=== PATIENT | female | born 1970 | race Caucasian/White ===

== ENCOUNTER 2018-06-12 14:45 | Outpatient (CLI) | payer OTHER, SELFPAY ==
[2018-06-12 15:27] LABS: Bilirubin Negative (Negative); Blood Negative (Negative); Clarity Clear; Glucose Negative (Negative); Ketones Negative (Negative); Leukocyte Esterase Negative (Negative); Nitrite Negative (Negative); Specific Gravity 1.025 (1.005-1.025); Urobilinogen 0.2 EU/dL (Up TO 0.2); pH 5.5 (5-8)
[2018-06-12 16:09] LABS: Bacteria Many HPF (Negative); Epithelial Cells Many HPF (Negative); RBC 0-2 (0-2); WBC 0-2 HPF (0-5)
[2018-06-12 16:10] LABS: Crystals Moderate Amorphous HPF (Negative); Mucus Negative (Negative)
[2018-06-12 16:11] LABS: C & S Indicated? No/Sq. Contamination
[2018-06-12 16:15] LABS: PROTEIN 107.1 mg/dL
[2018-06-12 16:18] LABS: Anion Gap 11.8 mmol/L (3-11); BUN 23 mg/dL (7-18); CO2 27.2 mmol/L (21.0-32.0); CREATININE 1.08 mg/dL (0.55-1.02); Chloride 101 mmol/L (98-107); Estimated GFR 54.62 (mL/min/1.73m2); Glucose 140 mg/dL (70-100); Potassium 4.2 mmol/L (3.5-5.1); Sodium 140 mmol/L (136-145)
[2018-06-12 16:23] LABS: COMMENT (LAB VIEW ONLY) 104.52 mg/dL; Prot/Crea Ur Ratio 1.02
== END 2018-06-12 15:05 ==
PROVIDERS: PCP Family Medicine; Visit Provider Family Medicine
DX: I10 Essential (primary) hypertension (principal); N18.2 Chronic kidney disease, stage 2 (mild)
CPT/HCPCS: 36415; 80048; 81003; 81015; 82565; 84156

== ENCOUNTER 2022-02-04 01:59 | Outpatient (CLI) | payer MEDICARE, SELFPAY ==
[2022-02-04] MEDS: Albuterol HFA 18 GM 200 PUFF INH IH (16:20)
[2022-02-04] MEDS: Inhaler, Assist Device 1 EACH MC (16:20)
--- NOTE | 2022-02-07 13:02 | W.PFT ---
Date of service: 02/04/22 Time of Service: 15:27 Pulmonary Function Test Result Requesting Provider Faye Martinez Indications: Asthma Interpretation Spirometry: No obstructive lung disease. No significant response to bronchodilators. Impression Normal spirometry. Clinical Correlation therefore is recommended.
== END 2022-02-04 02:00 | disposition home or self-care (01) ==
PROVIDERS: PCP Nurse Practitioner Adult Health; Visit Provider Nurse Practitioner Adult Health
DX: J45.909 Unspecified asthma, uncomplicated (principal)
CPT/HCPCS: 94060

== ENCOUNTER 2022-02-21 10:59 | Outpatient (REF) | payer MEDICARE, SELFPAY ==
[2022-02-21 15:08] LABS: ALT 52 U/L (14-59); AST 33 U/L (15-37); Albumin 3.6 g/dL (3.4-5.0); Alkaline Phosphatase 93 U/L (46-116); Anion Gap 7.8 mmol/L (3-11); BUN 17 mg/dL (7-18); Bilirubin, Total 0.4 mg/dL (0.2-1.0); CO2 30.2 mmol/L (21.0-32.0); CREATININE 1.1 mg/dL (0.55-1.02); Calcium 9.2 mg/dL (8.5-10.1); Chloride 101 mmol/L (98-107); Estimated GFR 52.79 (mL/min/1.73m2); Glucose 93 mg/dL (74-106); Potassium 4.6 mmol/L (3.5-5.1); Sodium 139 mmol/L (136-145); TSH (W/Ref FT4) 2.03 uIU/mL (0.36-3.74); Total Protein 7.2 g/dL (6.4-8.2)
[2022-02-21 23:36] LABS: Calculated LDL 140 mg/dL (<100); Cholesterol 244 mg/dL (<200); HDL Cholesterol 69 mg/dL (40-60); Triglyceride 175 mg/dL (<150)
== END 2022-02-21 11:00 | disposition home or self-care (01) ==
LOC: LBN 10:59
PROVIDERS: PCP Nurse Practitioner Adult Health; Visit Provider Nurse Practitioner Adult Health
DX: E78.00 Pure hypercholesterolemia, unspecified (principal); F32.89 Other specified depressive episodes; G47.00 Insomnia, unspecified; I10 Essential (primary) hypertension; N18.2 Chronic kidney disease, stage 2 (mild)
CPT/HCPCS: 80053; 80061; 84443

== ENCOUNTER 2022-09-14 02:26 | Outpatient (CLI) | payer MEDICARE, SELFPAY ==
--- NOTE | 2022-09-14 06:45 | DI.US_ITS ---
Exam(s) US PELVIS TRANSVAGINAL EXAM: US PELVIS TRANSVAGINAL CLINICAL HISTORY: lobulated uterus on MRI lumbar spine--?fibroid,d25.9,r93.89 TECHNIQUE: Transabdominal and transvaginal imaging was performed using standard protocol. COMPARISON: MR MRI LUMBAR WO from 08/06/2021 FINDINGS: Both transabdominal and transvaginal imaging limited by patient body habitus. KIDNEYS: Kidneys are symmetric in size. No evidence of renal calculi. No evidence of hydronephrosis. No renal mass or cyst identified. UTERUS: Anteverted. 8 x 5.3 x 5 cm Endometrium: 7 mm Myometrium: 2 anterior myometrial fibroids, measuring 3.93.1 cm in maximal dimension. Cervix: Unremarkable. OVARIES: Not visualized. CUL-DE-SAC: Free fluid: None. IMPRESSION: 1. Uterine fibroids. 2. Ovaries not visualized. DATA REPOSITORY:
== END 2022-09-14 02:46 ==
PROVIDERS: PCP Nurse Practitioner Adult Health; Visit Provider Nurse Practitioner Adult Health
DX: D25.9 Leiomyoma of uterus, unspecified (principal); R93.89 Abnormal findings on diagnostic imaging of other specified body structures
CPT/HCPCS: 76830; 76856

== ENCOUNTER 2023-04-19 12:48 | Outpatient (REF) | payer MEDICARE, SELFPAY ==
[2023-04-19 17:18] LABS: Hemoglobin A1C 5.8 % (<5.7)
[2023-04-19 17:19] LABS: Anion Gap 7.2 mmol/L (3-11); BUN 22 mg/dL (7-18); CO2 30.8 mmol/L (21.0-32.0); Calcium 9.4 mg/dL (8.5-10.1); Chloride 104 mmol/L (98-107); Estimated GFR 68.21 (mL/min/1.73m2); Glucose 102 mg/dL (74-106); Potassium 4.7 mmol/L (3.5-5.1); Sodium 142 mmol/L (136-145)
[2023-04-19 18:00] LABS: COMMENT (LAB VIEW ONLY) 47.18 mg/dL
[2023-04-19 18:05] LABS: Microalb ug/mg Crea 1469.5 ug/mg Cr
== END 2023-04-19 12:49 | disposition home or self-care (01) ==
LOC: LBN 12:48
PROVIDERS: PCP Nurse Practitioner Adult Health; Visit Provider Nurse Practitioner Adult Health
DX: R73.01 Impaired fasting glucose (principal); K21.9 Gastro-esophageal reflux disease without esophagitis; E66.01 Morbid (severe) obesity due to excess calories; E78.00 Pure hypercholesterolemia, unspecified; I10 Essential (primary) hypertension; N18.2 Chronic kidney disease, stage 2 (mild)
CPT/HCPCS: 80048; 82043; 82570; 83036

== ENCOUNTER 2023-08-21 16:34 | Outpatient (REF) | payer MEDICARE, SELFPAY ==
[2023-08-21 18:40] LABS: Anion Gap 8.3 mmol/L (3-11); BUN 25 mg/dL (7-18); CO2 26.7 mmol/L (21.0-32.0); CREATININE 1.1 mg/dL (0.55-1.02); Calcium 9.4 mg/dL (8.5-10.1); Chloride 101 mmol/L (98-107); Estimated GFR 60.84 (mL/min/1.73m2); Glucose 136 mg/dL (74-106); Potassium 4.6 mmol/L (3.5-5.1); Sodium 136 mmol/L (136-145)
== END 2023-08-21 16:35 | disposition home or self-care (01) ==
LOC: LBN 16:34
PROVIDERS: PCP Nurse Practitioner Adult Health; Visit Provider Nurse Practitioner Adult Health
DX: E66.01 Morbid (severe) obesity due to excess calories (principal); N18.2 Chronic kidney disease, stage 2 (mild); R79.89 Other specified abnormal findings of blood chemistry; Z68.44 Body mass index [BMI] 60.0-69.9, adult
CPT/HCPCS: 80048

== ENCOUNTER 2024-02-20 18:09 | Outpatient (REF) | payer MEDICARE, SELFPAY ==
--- NOTE | 2024-02-20 12:15 | PAPFT_PTH ---
PATIENT: Jamia Erickson LOC: [facility] U#:[id number] AGE/SX: 53/F ROOM: RE02/20/[address]: Faye Martinez APRN : 1970 BED: DIS: 02/20/2024 SPEC #: [id number] RECD: 02/20/24 18:11 STATUS: DOT REQ #: [id number] VALDO: 02/20/24 12:[address]: Faye Martinez DEPT: [facility] Cytology RECD BY: Claire De Jesus Tissues: 1 - CX/ENDOCX FOR PAP SMEARS Procedures: PAP THIN PREP/UVM Screening HPV DNA PROBE Comments: [id number]
== END 2024-02-20 18:10 | disposition home or self-care (01) ==
LOC: LBN 18:09
PROVIDERS: PCP Nurse Practitioner Adult Health; Visit Provider Nurse Practitioner Adult Health
DX: Z11.51 Encounter for screening for human papillomavirus (HPV) (principal); Z01.419 Encounter for gynecological examination (general) (routine) without abnormal findings
CPT/HCPCS: 88142; 87624

== ENCOUNTER 2024-05-09 19:57 | Emergency (ER) | payer MEDICARE, SELFPAY ==
[2024-05-09] VITALS (28 sets, daily range): BP systolic 119–167; BP diastolic 61–124; PULSE 82–95; RESP 2–27; TEMP 36.4; O2SAT 88–93
--- NOTE | 2024-05-09 20:15 | RT.EKG_ITS ---
APPROVED REPORT Exam: Resting ECG [place] [facility] [place] HR:86 bpm ECG Measurements Heart Rate 86 AXIS TN 126 P 10 QRSd 94 QRS 32 QT 355 T 68 QTc 426 Conclusion Sinus rhythm, rate 86 No interval abnormality or ectopy No STEMI
--- NOTE | 2024-05-09 20:30 | DI.RAD_ITS ---
Exam(s) XR CHEST 2V PA LATERAL EXAM: XR CHEST 2V PA LATERAL CLINICAL HISTORY: choking episode, syncope. TECHNIQUE: 2D digital imaging was performed. COMPARISON: No exams were available for comparison FINDINGS: 2 views: Exam limited by body habitus and somewhat lordotic portable technique. Heart size is upper normal and the mediastinum is not widened. Visualized right lung is clear. Slightly increased markings in left lower lobe noted. No pleural ef fusions. No evidence of pulmonary edema. IMPRESSION: Mild increased markings in the left lower lobe retrocardiac region. May indicate an element of infil trate.Interpretation is somewhat difficult due to body habitus and technique. No evidence of pulmonary edema. DATA REPOSITORY: RADIATION DOSE DELIVERED:
--- NOTE | 2024-05-09 20:40 | ED.GENADUL_ITS ---
Discharge Plan Discharge Details Chief Complaint: [id number] Primary Care Provider: Faye Martinez ED Provider: Denver Griffiths Home Meds and New Rx's Prescriptions: No Action diphenhydramine HCl [Benadryl] 25 mg capsule 25 mg PO .QD PRN Patient Comments: allergies mupirocin 2 % ointment 1 applic topical BID-TID Qty: 15 0RF Rx Instructions: May substitute with cream if less expensive; apply thin layer until area/lesion resolved in L axilla/armpit zolpidem 5 mg tablet 5 mg PO QHS MDD 5mg PRN (Reason: sleep) Qty: 30 5RF Zepbound 5 mg/0.5 mL pen injector 5 mg subcut QWEEK Qty: 2 2RF trazodone 100 mg tablet 100 - 300 mg PO QHS PRN (Reason: sleep) Qty: 270 3RF Rx Instructions: For insomnia; take lowest effective dose cholecalciferol (vitamin D3) 25 mcg (1,000 unit) capsule 5,000 unit PO DAILY latanoprost 0.005 % drops 1 drp ophthalmic (eye) QPM Rx Instructions: 1 drop both eyes qhs-- amlodipine 5 mg tablet 5 mg PO DAILY MDD 10mg/24h Qty: 120 3RF Rx Instructions: Blood pressure; 5mg daily, may take up to 10mg daily. albuterol sulfate [Ventolin HFA] 90 mcg/actuation HFA aerosol inhaler See Rx Instructions .ROUTE .COMPLEX Qty: 18 6RF Dose Instruction: inhale 2 puffs by mouth and INTO THE LUNGS every 4 hours if needed for wheezing or SHORTNESS OF BREATH Rx Instructions: inhale 2 puffs by mouth and INTO THE LUNGS every 4 hours if needed for wheezing or SHORTNESS OF BREATH budesonide-formoterol [Symbicort] 160-4.5 mcg/actuation HFA aerosol inhaler 2 puff inhalation BID PRN (Reason: allergic/environmental asthma) Qty: 3 3RF Rx Instructions: Uses PRN with triggered flares (lower dose ineffective) ipratropium-albuterol 0.5 mg-3 mg(2.5 mg base)/3 mL solution for nebulization 3 ml inhalation QID PRN (Reason: shortness of breath or wheezing) Qty: 90 3RF losartan 100 mg tablet 100 mg PO DAILY Qty: 90 3RF montelukast 10 mg tablet 10 mg PO DAILY Qty: 90 3RF Rx Instructions: Asthma & allergies omeprazole 40 mg capsule,delayed release(DR/EC) 40 mg PO DAILY Qty: 90 3RF loratadine [Allergy Relief (loratadine)] 10 mg tablet See Rx Instructions .ROUTE .COMPLEX Qty: 90 2RF Dose Instruction: TAKE 1 TABLET BY MOUTH ONCE DAILY NEEDED FOR ALLERGIC SYMPTOMS Rx Instructions: TAKE 1 TABLET BY MOUTH ONCE DAILY NEEDED FOR ALLERGIC SYMPTOMS cyclobenzaprine 10 mg tablet See Rx Instructions .ROUTE .COMPLEX Qty: 60 0RF Dose Instruction: TAKE 1 TABLET BY MOUTH TWICE DAILY NEEDED FOR LUMBAR SPINE MUSCLE SPASM Rx Instructions: TAKE 1 TABLET BY MOUTH TWICE DAILY NEEDED FOR LUMBAR SPINE MUSCLE SPASM prednisone 10 mg tablet See Rx Instructions PO DAILY Qty: 30 0RF Rx Instructions: t4 tabs for 3 days, the t3 tabs for 3 days, then t2 tabs for 3 days, then t1 tab for 3 days orally daily; (12 day taper). HPI General Date/Time Provider Initiated Documentation: 05/09/24 20:06 . HPI Narrative: 54 year-old morbidly obese female presents to ED today by POV/ambulating with a chief complaint of choking episode on an onion ring at home, with syncope- states a piece of the onion ring did fall out of her mouth just prior to her falling down/passing out, states she was out for a split second and had her eyes open and was shaky when he got across the room to her with onset just prior to arrival. Patient is also hypoxic to 88% on RA on arrival in triage, 90% by time of ED room. Quality described as feels pain on the back of her legs, notes her L leg has been swollen over the past weeks, states she has leg weakness when attempting to walk since this syncopal episode, no radiation to chest pain, hemoptysis, stridor, vocal changes, excessive drooling, inability to swallow since the event, abdominal pain, slurred speech, confusion. Severity is described as moderate for leg weakness. Palliating factors include nothing specific attempted. Provoking factors include nothing specific. Patient not anticoagulated. Related Data Home Medications ?Medication ?Instructions ?Recorded ?Confirmed diphenhydramine HCl 25 mg capsule 25 mg PO .QD PRN 01/17/22 02/20/24 (Benadryl) cholecalciferol (vitamin D3) 25 5,000 unit PO DAILY 02/04/22 02/20/24 mcg (1,000 unit) capsule mupirocin 2 % topical ointment 1 applic topical BID-TID #15 grams 02/16/23 02/20/24 latanoprost 0.005 % eye drops 1 drp ophthalmic (eye) QPM 04/19/23 02/20/24 albuterol sulfate 90 mcg/actuation See Rx Instructions .Route 05/11/23 02/20/24 aerosol inhaler (Ventolin HFA) .COMPLEX #18 grams amlodipine 5 mg tablet 5 mg PO DAILY #120 tabs 05/11/23 02/20/24 budesonide-formoterol HFA 160 2 puff inhalation BID PRN 05/11/23 02/20/24 mcg-4.5 mcg/actuation aerosol allergic/environmental asthma #3 inhaler (Symbicort) units ipratropium 0.5 mg-albuterol 3 mg 3 ml inhalation QID PRN shortness 05/11/23 02/20/24 (2.5 mg base)/3 mL nebulization of breath or wheezing #90 mL soln losartan 100 mg tablet 100 mg PO DAILY #90 tabs 05/11/23 02/20/24 montelukast 10 mg tablet 10 mg PO DAILY #90 tabs 05/11/23 02/20/24 omeprazole 40 mg capsule,delayed 40 mg PO DAILY #90 caps 05/11/23 02/20/24 release loratadine 10 mg tablet (Allergy See Rx Instructions .Route 12/20/23 02/20/24 Relief (loratadine)) .COMPLEX #90 tabs tirzepatide (weight loss) 5 mg/0.5 5 mg (0.5 mL) subcut QWEEK #2 mL 02/20/24 02/20/24 mL subcutaneous pen injector (Zepbound) trazodone 100 mg tablet 100 - 300 mg (1 - 3 x 100 mg) PO 02/20/24 02/20/24 QHS PRN sleep #270 tabs zolpidem 5 mg tablet 5 mg PO QHS PRN sleep #30 tabs 06/18/24 06/18/24 cyclobenzaprine 10 mg tablet See Rx Instructions .Route 03/19/24 .COMPLEX #60 tabs prednisone 10 mg tablet See Rx Instructions PO DAILY #30 04/12/24 tabs Previous Rx's ?Medication ?Instructions ?Recorded mupirocin 2 % topical ointment 1 applic topical BID-TID #15 grams 02/16/23 albuterol sulfate 90 mcg/actuation See Rx Instructions .Route 05/11/23 aerosol inhaler (Ventolin HFA) .COMPLEX #18 grams amlodipine 5 mg tablet 5 mg PO DAILY #120 tabs 05/11/23 budesonide-formoterol HFA 160 2 puff inhalation BID PRN 05/11/23 mcg-4.5 mcg/actuation aerosol allergic/environmental asthma #3 inhaler (Symbicort) units ipratropium 0.5 mg-albuterol 3 mg 3 ml inhalation QID PRN shortness 05/11/23 (2.5 mg base)/3 mL nebulization of breath or wheezing #90 mL soln losartan 100 mg tablet 100 mg PO DAILY #90 tabs 05/11/23 montelukast 10 mg tablet 10 mg PO DAILY #90 tabs 05/11/23 omeprazole 40 mg capsule,delayed 40 mg PO DAILY #90 caps 05/11/23 release loratadine 10 mg tablet (Allergy See Rx Instructions .Route 12/20/23 Relief (loratadine)) .COMPLEX #90 tabs tirzepatide (weight loss) 5 mg/0.5 5 mg (0.5 mL) subcut QWEEK #2 mL 02/20/24 mL subcutaneous pen injector (Zepbound) trazodone 100 mg tablet 100 - 300 mg (1 - 3 x 100 mg) PO 02/20/24 QHS PRN sleep #270 tabs zolpidem 5 mg tablet 5 mg PO QHS PRN sleep #30 tabs 02/20/24 cyclobenzaprine 10 mg tablet See Rx Instructions .Route 03/19/24 .COMPLEX #60 tabs prednisone 10 mg tablet See Rx Instructions PO DAILY #30 04/12/24 tabs Allergies Allergy/AdvReac Type Severity Reaction Status Date / Time metoprolol Allergy Severe Anaphylaxis Verified 02/20/24 11:26 tramadol Allergy Intermediate vomiting Verified 08/21/23 15:35 Latex, Natural Rubber Allergy irritation, Verified 08/21/23 15:35 swelling sulfamethoxazole (From AdvReac Intermediate vomiting Verified 08/21/23 15:35 Bactrim) trimethoprim (From Bactrim) AdvReac Intermediate vomiting Verified 08/21/23 15:35 environmental Allergy Intermediate asthma Uncoded 08/21/23 15:35 General Stated Complaint: [id number] AMADOR: 3 Review of Systems All systems reviewed & are unremarkable except as noted in HPI and below Exam Narrative Exam Narrative: GENERAL APPEARANCE: Morbid obesty, non-toxic, awake and alert, atraumatic, no acute distress. SKIN: Warm, pink, dry, intact, without rashes/lesions/ulcerations. HEAD: Normocephalic, atraumatic, normal hair distribution for gender/age. EYES: Normal conjunctiva, no exudates on lids/lashes. ENT: Nares patent, no circumoral cyanosis, no facial swelling NECK: Supple, trachea midline, painless cervical ROM, no midline vertebral tenderness/crepitus/step-offs. LUNGS/CHEST: Lungs CTA bilaterally- difficult auscultation due to body habitus, mildly labored respirations, normal A/P diameter, symmetrical expansion, no chest wall deformity HEART (CV/PV): Regular rate and rhythm without murmur, no peripheral edema, no JVD. ABDOMEN: Soft, non-distended, no guarding, no tenderness. MSK: Normal ROM, no swelling/deformity to bilateral UEs or LEs, moving all extremities without weakness, no cyanosis, spine midline without tenderness, normal curvature, no hip tenderness bilaterally, pain to light touch posterior thighs, has midline thoracic pain without crepitus/step-offs NEURO: Mental Status AAOx4 - alert to person, place, time, events No facial droop, no forehead involvement. Motor: No focal weakness - strength 5/5 in bilateral UEs, patient states she cannot lift her leg exam unsure whether this is due to participation effort or not, she does have good pull with her big toes with dorsi flexion, has sensitivity to light touch with shouting pain response Sensory: sensation intact to light touch globally. Gait normal: patient ambulated without ataxia into ED room. PSYCH: dysthymic, uncooperative, unpleasant, tearful, appropriate speech Course Vital Signs Vital signs: Vital Signs Temperature 36.4 C 05/09/24 20:00 Pulse 90 05/09/24 20:00 Respiratory Rate 15 05/09/24 20:00 Blood Pressure 142/80 H 05/09/24 20:00 Pulse Oximetry 88 L 05/09/24 20:00 Temperature 36.4 C 05/09/24 20:00 Pulse 90 05/09/24 20:00 Respiratory Rate 15 05/09/24 20:00 Blood Pressure 142/80 H 05/09/24 20:00 Blood Pressure Position Sitting 05/09/24 20:00 Pulse Oximetry 88 L 05/09/24 20:00 Oxygen Delivery Method Room Air 05/09/24 20:00 Oxygen Flow Rate 0 05/09/24 20:00 Pain Level 5 05/09/24 20:00 Medical Decision Making This dictation utilizes [id number] dictation software and may contain unedited grammatical errors. 54 year-old morbidly obese female presents to ED today by POV/ambulating with a chief complaint of choking episode on an onion ring at home, with syncope- states a piece of the onion ring did fall out of her mouth just prior to her falling down/passing out, states she was out for a split second and had her eyes open and was shaky when he got across the room to her with onset just prior to arrival. Patient is also hypoxic to 88% on RA on arrival in triage, 90% by time of ED room. Quality described as feels pain on the back of her legs, notes her L leg has been swollen over the past weeks, states she has leg weakness when attempting to walk since this syncopal episode, no radiation to chest pain, hemoptysis, stridor, vocal changes, excessive drooling, inability to swallow since the event, abdominal pain, slurred speech, confusion. Severity is described as moderate for leg weakness. Palliating factors include nothing specific attempted. Provoking factors include nothing specific. Patients' medical history: Morbid obesity, bronchospasm, fibromyalgia, chronic back pain, asthma, CKD, GERD, hypertension, anxiety, denies any cardiac history, denies any breathing problems due to mechanical ventilation issues states she has smell allergies. Family and social history: poor diet, denies illicit drug use. Pertinent exam findings / vital signs include difficult auscultation due to body habitus, regular rate, benign abdomen, no hip tenderness from fall, no cervical spine tenderness, no signs of head trauma, mild tenderness to posterior thighs, mid thoracic vertebral tenderness without crepitus/step-offs, patient is nonpa rticipatory with motor testing of lower extremities, states she cannot move them, does intermittently give solid effort on strength with dorsiflexion. Differential / pathologies of concern include syncope, aspiration pneumonia, anxiety, DVT, mechanical fall, ACS. Diagnostic studies of: -CBC, CMP, Lactate, CK, Serial Troponins, CXR, D-Dimer, Magnesium, Lipase, ETOH Level. CT Cervical/Thoracic/Lumbar Spine wo Contrast, CTA Chest PE Study, BNP added. -CBC shows no leukocytosis, no anemia -Lactate 1.9 -CMP shows mild hyponatremia, baseline creatinine, glucose 107 -Magnesium within normal limits -Initial troponin negative, repeats pending -Lipase negative -Alcohol level 84.1 -D-dimer elevated at 1163, possibility for DVT will rule out PE at this evening's visit, may need outpatient ultrasound tomorrow -EKG shows sinus rhythm with P waves followed by narrow complex QRS with questionable normal versus mild left axis deviation, no ST changes, low voltage likely due to body habitus, normal QT QTc -CXR shows pulmonary edema Patient perseverating on her leg pain, despite being hypoxic and syncopizing, attempted to soothe stating we needed to obtain CXR due to hypoxia prior to add ressing other issues stating now her whole reason for coming was her back pain- added on CT C/T/L Spine and CTA Chest PE Study at that time for elevated D- dimer. Interventions of: -DuoNeb, patient refusing IV Tylenol and toradol despite her severe pain with light palpation ED Course/Assessment/Plan: 54-year-old patient presents with her spouse after a brief choking episode on an onion ring at home, she states that she was able to get the onion ring out of her mouth just before she passed out and fell over, initially she denied any head or neck pain stating that the backs of her legs hurt. She was found to be 88% on room air on arrival, I question whether she aspirated a small piece of onion ring, or if this is her recumbent baseline due to physical constraints of respiration. She complains of chronic left leg swelling though there is no severe skin changes, difficult to determine whether Homans is positive as she shouts angrily in pain with light touch of the feet with testing for plantar dorsiflexion strength, she does pull with dorsiflexion testing bilaterally and symmetrically. Will perform CTs of her entire spine as she does have a mechanism that could have fractured a vertebrae as well as rule out a PE due to her elevated D-dimer, she may need further testing for ultrasound outpatient and empiric treatment overnight. Her chest x-ray shows significant pulmonary congestion suggestive of CHF, will trial Lasix for relief of her mild hypoxia on room air. Will give empiric antibiotics as infectious process cannot be ruled out for aspiration pneumonia ceftriaxone and azithromycin. *Added BNP Patient signed out to oncoming provider Dr. Alma Rodriguez with CT's pending. Findings not consistent with respiratory failure, ACS. Disposition of Syncope, Mechanical Fall. Patient verbalized understanding of the plan and return to ED criteria and engaged in shared decision making. Medical Records Medical records reviewed: Yes I reviewed the patient's medical records. Imaging Data Radiologic Study: Attestation: I personally reviewed and interpreted this imaging study as follows: Imaging: X-Ray Radiologist's impression: Exam: XR Chest Exam date and time: 05/09/2024 9:44 PM Age: 54 years old Clinical indication: Pain; Radiating TECHNIQUE: Imaging protocol: Radiologic exam of the chest. Views: 2 views. COMPARISON: No relevant prior studies available. FINDINGS: Lungs: There is pulmonary venous congestion. There is diffuse interstitial edema. Underlying inflammatory or infectious process not excluded. Pleural spaces: There are no pleural effusions. No evidence of pneumothorax. Heart/Mediastinum: The heart is enlarged. There is prominence of the mediastinum. Bones/joints: The skeletal structures and soft tissues show no evidence of fracture or other acute processes. Soft tissues: The soft tissues of the extrathoracic region are unremarkable. IMPRESSION: Probable congestive heart failure. Underlying inflammatory or infectious process not excluded. Dictated and Authenticated by: Cal English MD. Lab Data Lab results reviewed: Yes I reviewed the patient's lab results. Labs: Laboratory Tests Range/Units 05/09/24 20:40 WBC (4.4-10.8) 10^3/uL 9.98 RBC (3.93-5.22) 10^6/uL 4.47 Hgb (11.2-15.7) g/dL 11.3 Hct (36.0-46.0) % 37.5 MCV (80-95) fL 84 MCH (27.0-33.0) pg 25.3 L MCHC (32.0-36.0) % 30.1 L RDW (11.7-14.6) % 17.5 H Plt Count (130-400) 10^3/uL 298 MPV (8.0-11.0) fL 9.0 Immature Gran % % 1.2 Neutrophils % % 78.6 Lymphocytes % % 12.9 Monocytes % % 5.0 Eosinophils % % 1.7 Basophils % % 0.6 Nucleated RBC % (0.0-0.3) % 0.0 Absolute Neutrophils (1.2-6.7) 10^3/uL 7.84 H Absolute Lymphocytes (1.2-3.4) 10^3/uL 1.29 Absolute Monocytes (0.1-0.8) 10^3/uL 0.50 Absolute Eosinophils (0.0-0.7) 10^3/uL 0.17 Absolute Basophils (0.0-0.2) 10^3/uL 0.06 D-Dimer (<500) ng/mlFEU 1163 H VBG Lactate (0.6-1.4) mmol/L 1.9 H Sodium (136-145) mmol/L 133 L Potassium (3.5-5.1) mmol/L 3.9 Chloride (98-107) mmol/L 96 L Carbon Dioxide (21.0-32.0) mmol/L 26.5 Anion Gap (3-11) mmol/L 10.5 BUN (7-18) mg/dL 18 Creatinine (0.55-1.02) mg/dL 1.2 H Est GFR (CKD-EPI 2020) (mL/min/1.73m2) 54.46 Glucose (74-106) mg/dL 107 H Calcium (8.5-10.1) mg/dL 9.2 Magnesium (1.8-2.4) mg/dL 1.9 Total Bilirubin (0.2-1.0) mg/dL 0.33 AST (15-37) U/L 23 ALT (14-59) U/L 28 Alkaline Phosphatase (46-116) U/L 104 Creatine Kinase (26-192) U/L 36 Troponin I High Sens (< or =60) ng/L < 50 Total Protein (6.4-8.2) g/dL 7.6 Albumin (3.4-5.0) g/dL 3.5 Lipase (16-77) U/L 60 Ethyl Alcohol (<10) mg/dL 84.1 H Quality:[facility] Health Related Social Needs: No Data to Display COUNTS INCLUDE 234 BEDS AT THE [facility] All Active Problems Hernia, ventral (Acute) [facility] GI-06/13/23 06-26-23: [facility] outpatient CT abdomen w/o contrast. Impression: no acute findings in the abdomen on noncontrast scanning. Small fat containing paraumbilical ventral abdominal wall hernia. Elevated serum creatinine (Acute) Prediabetes (Acute ~04/2023) New DX 04/2023 Chronic back pain (Acute ~08/2021) MRI [facility] Nicotine use disorder (Chronic) 35 pack year Morbid obesity with BMI of 60.0-69.9, adult (Chronic) Asthma (Chronic) H/O Pulm ([place]) Allergic & environmentally triggered; uses Symbicort PRN, duonebs PRN. 02/2022 Spirometry--NORMAL Hypercholesterolemia (Chronic ~02/2022) Gait disturbance (Chronic) R/T R ankle; has cane CKD (chronic kidney disease) stage 2, GFR 60-89 ml/min (Acute ~2011) [facility] Migraines (Chronic) Osteoarthritis (Chronic) Insomnia (Chronic) L-T zolpidem (2021: dose reduction successful; med discontinuation unsuccessful) Trazodone increase 02/16/23 from 100 to 200mg HS Anxiety (Chronic) GERD (gastroesophageal reflux disease) (Chronic) Hypertension (Chronic) Depression (Chronic) Medical History Epigastric pain [facility] 06/13/23 Bronchospasm Surgical History History of ankle surgery (~2007) Plates Bone spur of right ankle (~2006) [place]urg[place] H/O [place] fusion [place] [facility] [place] [facility] [place] Father , murdered Anxiety Alcohol use disorder Mother Anxiety Asthma Hypertension Social History (Updated 02/20/24 @ 12:20 by Faye Martinez NP) Smoking/Tobacco Use Status: Current-Occasional Tobacco Type: cigarettes Smoking packs per day: 0.5 Smoking cigarettes per day: 10.0 Years smoked: 40 Smoking pack-years: 20.00 Tobacco: How many years used: 40 Quit status: not considering quitting Smoking risk assessment performed?: Yes Alcohol Intake: current Alcohol Intake frequency: a few times a month Drug use: Never Substance use type: does not use Adopted: No Caregiver/Support person: No Foster care: Yes Household members: spouse Housing: house Number of Children: 1 number of grandchildren: 9 Communication Needs: None Education Level: high school Do you need help understanding health information?: Rarely current occupation: Disabled Pets and animals: Yes Pets and animals: cat(s) and dog(s) Sexually active: Yes Do you think of yourself as: straight/heterosexual Current gender identity: female What is your relationship status?: How often do you talk on the phone with friends or family?: once per week How often do you get together with friends or relatives?: once per week Do you belong to any clubs or organized social groups?: no Panel score (0-1 are the most socially isolated patients): 1 Duration: < 15 minutes/day Frequency: 1-2 times per week Bhavna/Taoist: Gnosticism Special bhavna needs: No Seatbelt use: never Helmet use: No Drive intox or ride w/intox wagon driver: No Do you feel safe at home: Yes Do you feel safe in your relationship?: Yes
[2024-05-09 20:47] LABS: Lactate 1.9 mmol/L (0.6-1.4)
[2024-05-09 20:50] LABS: Abs Immature Grans 0.12 10^3/uL (0.0-0.06); Absolute Basophil Count 0.06 10^3/uL (0.0-0.2); Absolute Eosinophil Count 0.17 10^3/uL (0.0-0.7); Absolute Lymphocyte Count 1.29 10^3/uL (1.2-3.4); Absolute Neutrophil Count 7.84 10^3/uL (1.2-6.7); Basophils % 0.6 %; Eosinophils % 1.7 %; HCT 37.5 % (36.0-46.0); HGB 11.3 g/dL (11.2-15.7); Immature Grans % 1.2 %; Lymphocytes % 12.9 %; MCH 25.3 pg (27.0-33.0); MCHC 30.1 % (32.0-36.0); MCV 84 fL (80-95); Neutrophils % 78.6 %; Platelet Count 298 10^3/uL (130-400); RBC 4.47 10^6/uL (3.93-5.22); RDW 17.5 % (11.7-14.6); RDW-SD 53.2 fL; WBC 9.98 10^3/uL (4.4-10.8)
[2024-05-09] MEDS: Albuterol/Ipratropium 3 ML UPD VIAL UPD (21:06)
[2024-05-09] MEDS: Normal Saline 1,000 ML 1000 ML IV (21:07)
[2024-05-09 21:19] LABS: ALT 28 U/L (14-59); AST 23 U/L (15-37); Albumin 3.5 g/dL (3.4-5.0); Alkaline Phosphatase 104 U/L (46-116); Anion Gap 10.5 mmol/L (3-11); BUN 18 mg/dL (7-18); Bilirubin, Total 0.33 mg/dL (0.2-1.0); CO2 26.5 mmol/L (21.0-32.0); CREATININE 1.2 mg/dL (0.55-1.02); Calcium 9.2 mg/dL (8.5-10.1); Chloride 96 mmol/L (98-107); Creatine Kinase 36 U/L (26-192); ETHANOL BLOOD 84.1 mg/dL (<10); Estimated GFR 54.46 (mL/min/1.73m2); Glucose 107 mg/dL (74-106); Lipase 60 U/L (16-77); Magnesium 1.9 mg/dL (1.8-2.4); Potassium 3.9 mmol/L (3.5-5.1); Sodium 133 mmol/L (136-145); Total Protein 7.6 g/dL (6.4-8.2); Troponin I < 50 ng/L (< or =60)
[2024-05-09 21:33] LABS: D-Dimer 1163 ng/mlFEU (<500)
--- NOTE | 2024-05-09 21:45 | DI.CT_ITS ---
Exam(s) CT CHEST PE CTA CT THORACIC LUMBAR SPINE WO EXAM: CT CHEST PE CTA and CT thoracic and lumbar spine CT CLINICAL HISTORY: elev d-dimer, mid back pain, syncope. TECHNIQUE: Imaging Protocol: Axial CT angiography was performed with multi-slice acquisition and mu lti-planar and/or 3D reconstructions. CONTRAST MATERIAL: Intravenous: Omnipaque 350 contrast volume:100 mL COMPARISON: CT CT THORACIC LUMBAR SPINE WO from 05/09/2024 CR,XR XR CHEST 2V PA LATERAL from 05/09/2024 FINDINGS: Examination is limited by poor inspiration and patient body habitus. Tracheobronchial tree: Patent where visualized. No bronchiectasis. Pulmonary parenchyma: No consolidation or dominant measurable mass. Atelectatic changes are seen in t he lung bases. Pulmonary Arteries: Within the limits of the examination, no pulmonary embolism is seen. Mediastinum and Shelli: No dominant adenopathy or fluid collection. The esophagus is unremarkable. Visualized thyroid gland: Unremarkable. Pleura: No effusion or pneumothorax. Heart: The heart is not dilated. No coronary artery calcifications are seen. No pericardial effusion. Aorta: Thoracic aorta non-dilated. No evidence of dissection. Upper abdomen: Unremarkable. Soft tissues: Unremarkable. Bones: Within normal limits for the patient's age. CT scan of the thoracic spine: There is a right convex scoliosis of the thoracic spine. Age-appropri ate degenerative changes are present. No acute fractures or subluxations are present. CT scan of the lumbar spine: Age-appropriate degenerative changes are seen in the lumbar spine. No a cute fractures or subluxations are present. There are degenerative changes of the facets seen partic ularly at L4-L5. IMPRESSION: 1. No evidence of pulmonary embolism, thoracic aortic dissection or aneurysm. 2. No evidence of an acute fracture or subluxation in the thoracic or lumbar spine. 3. Pulmonary evaluation is limited by poor inspiration but atelectatic changes are seen in the lungs. No focal consolidating infiltrates are seen. RADIATION DOSE DELIVERED: 417.01mGy.cm Total DLP DATA REPOSITORY: All CT scans at this facility are submitted to the National Radiology Data Registry (NRDR) Dose Index Registry (DIR) with the [employer] (A[employer]). RADIATION OPTIMIZATION: All CT scans at this facility use at least one of these dose optimization te chniques: automated exposure control; mA and/or kV adjustment per patient size (includes targeted exa ms where dose is matched to clinical indication); or iterative reconstruction.
--- NOTE | 2024-05-09 21:45 | DI.CT_ITS ---
Exam(s) CT CERVICAL SPINE WO EXAM: CT CERVICAL SPINE WO CLINICAL HISTORY: fall during choking incident. TECHNIQUE: Imaging Protocol: Axial computed tomography images with coronal and sagittal reformatted images were created and reviewed COMPARISON: No exams were available for comparison FINDINGS: Bones: No acute fracture or subluxation. The appropriate degenerative changes are seen in the cervica l spine. There is mild reversal of the normal cervical lordosis. This may be due to muscle spasm or patient positioning. Soft Tissues: Unremarkable. IMPRESSION: No acute fracture or subluxation in the cervical spine. RADIATION DOSE DELIVERED: 492.46mGy.cm Total DLP 492.46mGy.cm Total DLP DATA REPOSITORY: All CT scans at this facility are submitted to the National Radiology Data Registry (NRDR) Dose Index Registry (DIR) with the [employer] (ACR). RADIATION OPTIMIZATION: All CT scans at this facility use at least one of these dose optimization te chniques: automated exposure control; mA and/or kV adjustment per patient size (includes targeted exa ms where dose is matched to clinical indication); or iterative reconstruction.
--- NOTE | 2024-05-09 22:24 | DI.VRAD_ITS ---
PROCEDURE INFORMATION: Exam: XR Chest Exam date and time: 05/09/2024 9:44 PM Age: 54 years old Clinical indication: Pain; Radiating TECHNIQUE: Imaging protocol: Radiologic exam of the chest. Views: 2 views. COMPARISON: No relevant prior studies available. FINDINGS: Lungs: There is pulmonary venous congestion. There is diffuse interstitial edema. Underlying inflammatory or infectious process not excluded. Pleural spaces: There are no pleural effusions. No evidence of pneumothorax. Heart/Mediastinum: The heart is enlarged. There is prominence of the mediastinum. Bones/joints: The skeletal structures and soft tissues show no evidence of fracture or other acute processes. Soft tissues: The soft tissues of the extrathoracic region are unremarkable. IMPRESSION: Probable congestive heart failure. Underlying inflammatory or infectious process not excluded. Dictated and Authenticated by: Cal English MD. Ordering:BJ Goff MD
[2024-05-09] MEDS: Normal Saline - Diluent 50 ML VIAL IJ (22:40)
[2024-05-09] MEDS: Omnipaque 350 MG/ML 100 ML BTL IJ (22:41)
--- NOTE | 2024-05-09 22:43 | W.EDPROG ---
Date of service: 05/09/24 Time of Service: 22:43 Medical Decision Making This patient was signed out to me. Please see previous notes for H&P and initial eval. In brief, 54yo F with brief choking episode while eating onion rings, cleared on her own with coughing but did fall to the ground, may have lost consciousness briefly. Mild hypoxia on initial presentation and CXR with possible pulmonary edema/infiltrate; being treated with lasix and antibiotics. Patient also reported RLE swelling, dimer was positive. Signed out pending imaging. On my assessment pt reports mild-moderate bilateral leg pain, her primary complaint is diffuse bilateral leg weakness/numbness/heaviness like when your arm falls asleep. No paresthesias. Has had difficulty walking since the event; nursing and I assisted her up to commode with full 2 person assist and she was able to ambulate in the room with shuffling gait. Patient states this is a significant improvement from when she initially arrived. On my exam 3+/5 strength symmetric BLE and patellar/Achilles hyporeflexia, otherwise non-focal neurologic exam, no saddle anesthesia, sensation to light touch intact throughout bilateral LE. Does have mid-thoracic midline tenderness on exam, otherwise no traumatic findings. Concern for cord injury. Unlikely intracranial pathology however as she did fall with syncope/possible head strike and has neurologic deficits will also get head CT. Imaging as below. Ideally patient would get emergent MRI however above waist circumference for our MRI machine here. Contacted [facility] on for nsgy; agree pt needs MRI, imaging reviewed and on their view air in the T12-L1 disc space concerning for hyperextension injury, however their MRI also unable to accommodate. Advised spine precautions and urgent MRI given may have unstable injury, not thought to be appropriate for outpatient MRI. Extensive search made for facility with capacity and capability for MRI for this patient (either inpatient MRI or associated outpatient Open MRI): [facility], [facility], [facility], [facility], [facility], [facility], [facility], [facility], [facility], [facility], [facility], [facility] ([place]) all declined. No call back from [facility]. On reassessment pt continues to feel subjectively improved symptoms, BLE strength 4/5. Will reach back out to facilities that declined due to capacity and see if we are able to list the patient for when a bed becomes available, would need admission to [facility] in the meantime. Signed out to oncoming physician. Imaging Data Radiologic Study: Imaging: CT Scan Radiologist's impression: C-spine: IMPRESSION: 1. There is no evidence of acute vertebral body element or posterior vertebral element fracture. 2. The anterior posterior borders of the vertebral bodies are in good alignment. No evidence of acute subluxation. 3. There is a nonspecific reversal of the normal cervical lordosis. This may represent paravertebral muscle spasm versus positioning. Clinical correlation recommended. 4. There are [id number] degenerative changes of the cervical spine discs. 5. There is no evidence of acute disc injury. T spine: IMPRESSION: 1. There is heterogeneous attenuation of the pulmonary parenchyma, consistent with air trapping from underlying small airways disease. 2. There are diffuse interstitial infiltrates present. This may represent cardiogenic versus noncardiogenic edema. An acute inflammatory process and/or infectious process/pneumonia are not excluded. 3. Ehfp-ia-miuzzpcq degenerative changes of the cervicothoracic spine. Mild degenerative disc disease of the thoracic vertebral bodies. 4. The thoracolumbar spine demonstrates moderate degenerative disc changes at T12-L1. 5. No significant central spinal stenosis or neural foraminal narrowing identified within the thoracic spine. 6. Mild degenerative changes at the facets predominantly at T8-T9 on the left side. 7. No evidence of acute fracture subluxation L spine: IMPRESSION: 1. Early spondylitic changes and spondylosis present at the L4-L5 facets bilaterally. No evidence of spondylolisthesis. 2. Broad-based bulge of the disc with a mild posterior component. Bilateral facet and ligamentum flavum hypertrophy resulting in mild to moderate central spinal stenosis. Moderate to severe left and moderate right neural foraminal narrowing present at L4-L5 . 3. No evidence of acute fracture subluxation Chest: IMPRESSION: 1. The pulmonary arteries are enlarged main pulmonary artery measuring 4.3 cm in diameter. Consider pulmonary hypertension. No evidence of acute pulmonary embolism. 2. There are diffuse interstitial infiltrates present. This may represent cardiogenic versus noncardiogenic edema. An acute inflammatory process and/or infectious process/pneumonia are not excluded. 3. There is heterogeneous attenuation of the pulmonary parenchyma, consistent with air trapping from underlying small airways disease. 4. Scattered patchy ground-glass opacities within the lungs. These findings are nonspecific and may represent hypoventilatory change,edema, hemorrhage, or an infectious/inflammatory process (acute or chronic). Head: IMPRESSION: No acute intracranial findings Quality:SDOH Health Related Social Needs: No Data to Display Exam Narrative Exam Narrative: General: Alert, well appearing, obese, in no acute distress. Head: Normocephalic, atraumatic Neck: Trachea midline, ?Neck supple. ENT: ?MMM.? No oropharygeal lesions or exudate. Cardiac: ?RRR, no murmurs appreciated Resp: No respiratory distress. CTAB. Abd: ?Soft, non-distended, nontender : ?No suprapubic tenderness. No CVA tenderness. Extremities: ?No deformities.? No peripheral edema. Neuro: ? GCS 15.? PERRL.? EOMI.? Fluent speech, no dysarthria. Motor- 3/5 strength bilateral hip flexion, knee flexion/extension, ankle dorsi/plantar flexion other borrero 5/5 strength symmetric bilateral upper and lower extremities including shoulder abductors/adductors, elbow flexors/extensors, wrist flexors/extensors, finger abductors/adductors Sensation- ?Intact to light touch and symmetric multiple dermatomes including upper and lower extremities, no saddle anesthesia Rectal: Normal tone Coordination- No dysmetria on finger to nose Reflexes- 1/4 achilles & patellar, no clonus Gait/station: ?Normal stance.? No truncal ataxia. Steady gait with equal shuffling steps CRANIAL NERVES: II: Pupils equal and reactive, III, IV, : EOM intact, no gaze preference or deviation, no nystagmus. V: normal sensation in V1, V2, and V3 segments bilaterally VII: no asymmetry, no nasolabial fold flattening VIII: normal hearing to speech IX, X: normal palatal elevation, no uvular deviation XI: 5/5 head turn and 5/5 shoulder shrug bilaterally XII: midline tongue protrusion Sign Out Sign Out Data: Sign Out Comment: Pending CTA Chest PE, CT Cervical/Thoracic/Lumbar Spine after a brief choking episode and fall- stating she cannot move her legs. Refusing APAP/NSAID for pain in legs. Question aspiration PNA vs CHF on CXR. Last updated by Denver Griffiths PA at 05/09/24 22:35 Discharge Plan Discharge Details Chief Complaint: [id number] Primary Care Provider: Faye Martinez ED Provider: Carole Rodriguez Home Meds and New Rx's Prescriptions: No Action diphenhydramine HCl [Benadryl] 25 mg capsule 25 mg PO .QD PRN Patient Comments: allergies mupirocin 2 % ointment 1 applic topical BID-TID Qty: 15 0RF Rx Instructions: May substitute with cream if less expensive; apply thin layer until area/lesion resolved in L axilla/armpit zolpidem 5 mg tablet 5 mg PO QHS MDD 5mg PRN (Reason: sleep) Qty: 30 5RF Zepbound 5 mg/0.5 mL pen injector 5 mg subcut QWEEK Qty: 2 2RF trazodone 100 mg tablet 100 - 300 mg PO QHS PRN (Reason: sleep) Qty: 270 3RF Rx Instructions: For insomnia; take lowest effective dose cholecalciferol (vitamin D3) 25 mcg (1,000 unit) capsule 5,000 unit PO DAILY latanoprost 0.005 % drops 1 drp ophthalmic (eye) QPM Rx Instructions: 1 drop both eyes qhs-- amlodipine 5 mg tablet 5 mg PO DAILY MDD 10mg/24h Qty: 120 3RF Rx Instructions: Blood pressure; 5mg daily, may take up to 10mg daily. albuterol sulfate [Ventolin HFA] 90 mcg/actuation HFA aerosol inhaler See Rx Instructions .ROUTE .COMPLEX Qty: 18 6RF Dose Instruction: inhale 2 puffs by mouth and INTO THE LUNGS every 4 hours if needed for wheezing or SHORTNESS OF BREATH Rx Instructions: inhale 2 puffs by mouth and INTO THE LUNGS every 4 hours if needed for wheezing or SHORTNESS OF BREATH budesonide-formoterol [Symbicort] 160-4.5 mcg/actuation HFA aerosol inhaler 2 puff inhalation BID PRN (Reason: allergic/environmental asthma) Qty: 3 3RF Rx Instructions: Uses PRN with triggered flares (lower dose ineffective) ipratropium-albuterol 0.5 mg-3 mg(2.5 mg base)/3 mL solution for nebulization 3 ml inhalation QID PRN (Reason: shortness of breath or wheezing) Qty: 90 3RF losartan 100 mg tablet 100 mg PO DAILY Qty: 90 3RF montelukast 10 mg tablet 10 mg PO DAILY Qty: 90 3RF Rx Instructions: Asthma & allergies omeprazole 40 mg capsule,delayed release(DR/EC) 40 mg PO DAILY Qty: 90 3RF loratadine [Allergy Relief (loratadine)] 10 mg tablet See Rx Instructions .ROUTE .COMPLEX Qty: 90 2RF Dose Instruction: TAKE 1 TABLET BY MOUTH ONCE DAILY NEEDED FOR ALLERGIC SYMPTOMS Rx Instructions: TAKE 1 TABLET BY MOUTH ONCE DAILY NEEDED FOR ALLERGIC SYMPTOMS cyclobenzaprine 10 mg tablet See Rx Instructions .ROUTE .COMPLEX Qty: 60 0RF Dose Instruction: TAKE 1 TABLET BY MOUTH TWICE DAILY NEEDED FOR LUMBAR SPINE MUSCLE SPASM Rx Instructions: TAKE 1 TABLET BY MOUTH TWICE DAILY NEEDED FOR LUMBAR SPINE MUSCLE SPASM prednisone 10 mg tablet See Rx Instructions PO DAILY Qty: 30 0RF Rx Instructions: t4 tabs for 3 days, the t3 tabs for 3 days, then t2 tabs for 3 days, then t1 tab for 3 days orally daily; (12 day taper).
[2024-05-09 22:48] LABS: Troponin I < 50 ng/L (< or =60)
--- NOTE | 2024-05-09 23:06 | DI.VRAD_ITS ---
PROCEDURE INFORMATION: Exam: CT Cervical Spine Without Contrast Exam date and time: 05/09/2024 10:47 PM Age: 54 years old Clinical indication: Injury or trauma; Other: Fall during choking incident TECHNIQUE: Imaging protocol: Computed tomography of the cervical spine without contrast. COMPARISON: CR XR CHEST 2V PA LATERAL 05/09/2024 9:44 PM FINDINGS: Bones: There is no evidence of acute vertebral body element or posterior vertebral element fracture. The anterior posterior borders of the vertebral bodies are in good alignment. No evidence of acute subluxation. There is a nonspecific reversal of the normal cervical lordosis. This may represent paravertebral muscle spasm versus positioning. Clinical correlation recommended. No evidence of acute compression fractures. There are uytv-[id number] degenerative changes of the cervical spine discs. Mild neurforaminal narrowing secondary to degenerative changes present. Mild narrowing of the central spinal canal secondary to degenerative changes. There is no evidence of acute disc injury. The spinal canal and cord are otherwise normal. The visualized portions of the skull base and brain are unremarkable. Lungs: The visualized portions of the lung apices are unremarkable. Lymph nodes: There is no evidence of lymphadenopathy. Soft tissues: The prevertebal, paravertebral, pharyngeal, hypopharyngeal, and laryngeal soft tissue structures are unremarkable. IMPRESSION: 1. There is no evidence of acute vertebral body element or posterior vertebral element fracture. 2. The anterior posterior borders of the vertebral bodies are in good alignment. No evidence of acute subluxation. 3. There is a nonspecific reversal of the normal cervical lordosis. This may represent paravertebral muscle spasm versus positioning. Clinical correlation recommended. 4. There are [id number] degenerative changes of the cervical spine discs. 5. There is no evidence of acute disc injury. Dictated and Authenticated by: Cal English MD. Ordering:BJ Goff MD
[2024-05-09] MEDS: Furosemide 40 MG/4 ML VIAL IVP (23:48)
--- NOTE | 2024-05-09 23:54 | DI.VRAD_ITS ---
PROCEDURE INFORMATION: Exam: CT Thoracic Spine Without Contrast Exam date and time: 05/09/2024 10:51 PM Age: 54 years old Clinical indication: Injury or trauma; Other: Fall during choking, back pain; Injury date: 05/09/24; Injury details: Fall with syncope, back pain TECHNIQUE: Imaging protocol: Computed tomography of the thoracic spine without contrast. Radiation optimization: All CT scans at this facility use at least one of these dose optimization techniques: automated exposure control; mA and/or kV adjustment per patient size (includes targeted exams where dose is matched to clinical indication); or iterative reconstruction. COMPARISON: CT CERVICAL SPINE WO 05/09/2024 10:47 PM FINDINGS: Bones/joints: [id number] degenerative changes of the cervicothoracic spine. Mild degenerative disc disease of the thoracic vertebral bodies. The thoracolumbar spine demonstrates moderate degenerative disc changes at T12-L1. No significant central spinal stenosis or neural foraminal narrowing identified within the thoracic spine. Mild degenerative changes at the facets predominantly at T8-T9 on the left side. No evidence of fracture subluxation. Soft tissues: Unremarkable. Lungs: There is a pulmonary parenchymal and mediastinal calcification consistent with remote granulomatous organism exposure. There is heterogeneous attenuation of the pulmonary parenchyma, consistent with air trapping from underlying small airways disease. There are diffuse interstitial infiltrates present. This may represent cardiogenic versus noncardiogenic edema. An acute inflammatory process and/or infectious process/pneumonia are not excluded. IMPRESSION: 1. There is heterogeneous attenuation of the pulmonary parenchyma, consistent with air trapping from underlying small airways disease. 2. There are diffuse interstitial infiltrates present. This may represent cardiogenic versus noncardiogenic edema. An acute inflammatory process and/or infectious process/pneumonia are not excluded. 3. Nxkj-mn-dzhvqavk degenerative changes of the cervicothoracic spine. Mild degenerative disc disease of the thoracic vertebral bodies. 4. The thoracolumbar spine demonstrates moderate degenerative disc changes at T12-L1. 5. No significant central spinal stenosis or neural foraminal narrowing identified within the thoracic spine. 6. Mild degenerative changes at the facets predominantly at T8-T9 on the left side. 7. No evidence of acute fracture subluxation. PROCEDURE INFORMATION: Exam: CT Lumbar Spine Without Contrast Exam date and time: 05/09/2024 10:51 PM Age: 54 years old Clinical indication: Injury or trauma; Other: Fall during choking, back pain; Injury date: 05/09/24; Injury details: Fall with syncope, back pain TECHNIQUE: Imaging protocol: Computed tomography of the lumbar spine without contrast. COMPARISON: MRI LUMBAR WO 08/06/2021 9:04 AM FINDINGS: Bones/joints: Bones/joints/discs: Mild narrowing of the intervertebral disc space at L3-L4 and L4-L5. There is no evidence of compression fractures or deformities. Spinal alignment is normal. Early spondylitic changes and spondylosis present at the L4-L5 facets bilaterally. No evidence of spondylolisthesis. Mild degenerative changes sacroiliac joints bilaterally. No evidence ligamentum flavum hypertrophy or facet hypertrophy. No evidence of significant central spinal stenosis or neural foraminal narrowing. T12-L1: Mild broad-based bulges of disc predominantly anteriorly into the right lateral aspect. No evidence of posterior bulging. L1-L2: No evidence of significant bulge, protrusion or extrusion. No evidence ligamentum flavum hypertrophy or facet hypertrophy. No evidence of significant central spinal stenosis or neural foraminal narrowing. L2-L3: No evidence of significant bulge, protrusion or extrusion. No evidence ligamentum flavum hypertrophy or facet hypertrophy. No evidence of significant central spinal stenosis or neural foraminal narrowing. L3-L4: Mild broad-based bulge of the disc with mild posterior component no significant central spinal stenosis or neural foraminal narrowing identified. L4-L5: Broad-based bulge of the disc with a mild posterior component. Bilateral facet and ligamentum flavum hypertrophy resulting in mild to moderate central spinal stenosis. Moderate to severe left and moderate right neural foraminal narrowing present. L5-S1: Mild degenerative changes with anterior osteophytes present predominantly L4-L5 and L5-S1. Broad-based bulging disc with mild posterior compliant no significant central spinal stenosis or neural foraminal narrowing present. Soft tissues: There are no soft tissue calcifications or masses. IMPRESSION: 1. Early spondylitic changes and spondylosis present at the L4-L5 facets bilaterally. No evidence of spondylolisthesis. 2. Broad-based bulge of the disc with a mild posterior component. Bilateral facet and ligamentum flavum hypertrophy resulting in mild to moderate central spinal stenosis. Moderate to severe left and moderate right neural foraminal narrowing present at L4-L5 . 3. No evidence of acute fracture subluxation Dictated and Authenticated by: Cal English MD. Ordering:BJ Goff MD
[2024-05-10] VITALS (107 sets, daily range): BP systolic 121–166; BP diastolic 56–89; PULSE 67–91; RESP 14–29; TEMP 37; O2SAT 94–95
--- NOTE | 2024-05-10 00:02 | DI.VRAD_ITS ---
PROCEDURE INFORMATION: Exam: CTA Chest With Contrast Exam date and time: 05/09/2024 11:02 PM Age: 54 years old Clinical indication: Abnormal findings; Abnormal diagnostic tests; Elevated d-dimer; Patient HX: Elev d-dimer, mid back pain, syncope TECHNIQUE: Imaging protocol: Computed tomographic angiography of the chest with contrast. Exam focused on the arteries. 3D rendering (Not supervised by radiologist): MIP and/or 3D reconstructed images were created by the technologist. Radiation optimization: All CT scans at this facility use at least one of these dose optimization techniques: automated exposure control; mA and/or kV adjustment per patient size (includes targeted exams where dose is matched to clinical indication); or iterative reconstruction. Contrast material: OMNIPAQUE 350; Contrast volume: 100 ml; Contrast route: INTRAVENOUS (IV); COMPARISON: CR XR CHEST 2V PA LATERAL 05/09/2024 9:44 PM FINDINGS: Pulmonary arteries: The pulmonary arteries are enlarged main pulmonary artery measuring 4.3 cm in diameter. Consider pulmonary hypertension. No evidence of acute pulmonary embolism. Aorta: The aorta is normal without evidence of aneurysmal dilatation, dissection or occlusive disease. Lungs: There are diffuse interstitial infiltrates present. This may represent cardiogenic versus noncardiogenic edema. An acute inflammatory process and/or infectious process/pneumonia are not excluded. There is heterogeneous attenuation of the pulmonary parenchyma, consistent with air trapping from underlying small airways disease. Scattered patchy ground-glass opacities within the lungs. These findings are nonspecific and may represent hypoventilatory change,edema, hemorrhage, or an infectious/inflammatory process (acute or chronic). There is no evidence of pulmonary masses. Pleural spaces: There is no evidence of pneumothorax. There are no pleural effusions present. Heart: The cardiac structures are normal. The right ventricular to left ventricular ratio is normal measuring approximately 0.9. No evidence of reflux of contrast into the inferior vena cava or hepatic veins to suggest right heart strain or pulmonary hypertension. Lymph nodes: There is no evidence of lymphadenopathy. Liver: There is a diffuse decrease in hepatic parenchymal density, consistent with mild fatty infiltration. There is mild hepatomegaly. Spleen: The spleen is enlarged. The spleen otherwise appears normal. Bones/joints: The spine, sternum, ribs, and pectoral girdles show no evidence of acute abnormality. There is a convex dextroscoliosis of the thoracic spine. Soft tissues: There are no soft tissue masses or fluid collections. Other findings: The mediastinal structures are normal. IMPRESSION: 1. The pulmonary arteries are enlarged main pulmonary artery measuring 4.3 cm in diameter. Consider pulmonary hypertension. No evidence of acute pulmonary embolism. 2. There are diffuse interstitial infiltrates present. This may represent cardiogenic versus noncardiogenic edema. An acute inflammatory process and/or infectious process/pneumonia are not excluded. 3. There is heterogeneous attenuation of the pulmonary parenchyma, consistent with air trapping from underlying small airways disease. 4. Scattered patchy ground-glass opacities within the lungs. These findings are nonspecific and may represent hypoventilatory change,edema, hemorrhage, or an infectious/inflammatory process (acute or chronic). Dictated and Authenticated by: Cal English MD. Ordering:BJ Goff MD
[2024-05-10] MEDS: Azithromycin 250 MG TAB 500 MG PO (00:05)
[2024-05-10] MEDS: cefTRIAXone 2 GM/50 ML BAG IVPB (00:05)
[2024-05-10 00:15] LABS: NT-proBNP 119 pg/mL (<300)
[2024-05-10 00:54] LABS: Troponin I < 50 ng/L (< or =60)
--- NOTE | 2024-05-10 04:30 | NUR.NOTE ---
Nursing Note: pt transferred to hospital bed.
--- NOTE | 2024-05-10 04:45 | DI.CT_ITS ---
Exam(s) CT HEAD WO EXAM: CT HEAD WO CLINICAL HISTORY: syncope and fall. TECHNIQUE: Imaging Protocol: Axial computed tomography images with coronal and sagittal reformatted images were created and reviewed COMPARISON: No exams were available for comparison FINDINGS: Ventricles and Extra axial spaces: Normal in size and morphology for the patient's age. Hemorrhage: None. Cerebral parenchyma: No acute territorial infarct. Normal nuñez-white matter differentiation. Midline shift: None. Brainstem/Cerebellum: Normal. Calvarium: Normal. Visualized Paranasal sinuses/Mastoids: Clear. Soft Tissues: Unremarkable. IMPRESSION: No acute intracranial process. RADIATION DOSE DELIVERED: 849.75mGy.cm Total DLP DATA REPOSITORY: All CT scans at this facility are submitted to the National Radiology Data Registry (NRDR) Dose Index Registry (DIR) with the [employer] (A[employer]). RADIATION OPTIMIZATION: All CT scans at this facility use at least one of these dose optimization te chniques: automated exposure control; mA and/or kV adjustment per patient size (includes targeted exa ms where dose is matched to clinical indication); or iterative reconstruction.
--- NOTE | 2024-05-10 05:15 | DI.US_ITS ---
Exam(s) US EXTREMITY VENOUS BI EXAM: US EXTREMITY VENOUS BI CLINICAL HISTORY: elevated d-dimer, RLE swelling. TECHNIQUE: Bilateral lower extremity venous ultrasound performed using grayscale, color-flow, and sp ectral Doppler analysis. COMPARISON: No exams were available for comparison FINDINGS: The right common femoral, femoral and popliteal veins demonstrate normal compressibility, augmentatio n, and color Doppler. The posterior tibial and peroneal veins are patent. The saphenofemoral junctio n is unremarkable. There is no evidence of a Daly's cyst. The soft tissues are unremarkable. The left common femoral, femoral and popliteal veins demonstrate normal compressibility, augmentation , and color Doppler. The posterior tibial and peroneal veins are patent. The saphenofemoral junction is unremarkable. There is no evidence of a Daly's cyst. The soft tissues are unremarkable. IMPRESSION: 1. No evidence of a right lower extremity DVT. 2. No evidence of a left lower extremity DVT. DATA REPOSITORY:
--- NOTE | 2024-05-10 06:02 | DI.VRAD_ITS ---
PROCEDURE INFORMATION: Exam: CT Head Without Contrast Exam date and time: 05/10/2024 5:08 AM Age: 54 years old Clinical indication: Syncope and collapse; Patient HX: Syncope and fall TECHNIQUE: Imaging protocol: Computed tomography of the head without contrast. Radiation optimization: All CT scans at this facility use at least one of these dose optimization techniques: automated exposure control; mA and/or kV adjustment per patient size (includes targeted exams where dose is matched to clinical indication); or iterative reconstruction. COMPARISON: CT CERVICAL SPINE WO 05/09/2024 10:47 PM FINDINGS: Brain: Scattered dural calcifications. Pineal gland calcifications. Cerebral ventricles: Choroid plexus calcifications. Paranasal sinuses: Visualized sinuses are unremarkable. No fluid levels. Mastoid air cells: Visualized mastoid air cells are well aerated. Bones: Unremarkable. No acute fracture. Soft tissues: Unremarkable. IMPRESSION: No acute intracranial findings. Dictated and Authenticated by: Domenic White MD. Ordering:PASHA Lam MD
--- NOTE | 2024-05-10 06:57 | NUR.NOTE ---
Nursing Note: Hand off report to KIM Schwartz
--- NOTE | 2024-05-10 07:45 | DI.MRI_ITS ---
Exam(s) MR LUMBAR SPINE WO EXAM: MR LUMBAR SPINE WO CLINICAL HISTORY: Abnormal CT. TECHNIQUE: Multiplanar multisequence MRI of the Lumbar spine was performed. COMPARISON: MR MRI LUMBAR WO from 08/06/2021 (outside institution) CT CT THORACIC LUMBAR SPINE WO from 05/09/2024 FINDINGS: Conus medullaris is at normal level. There is no evidence of conus mass nor subjacent clumping of in trathecal nerve roots to suggest arachnoiditis. The distal thecal sac appears unremarkable.There is no evidence of Tarlov intrasacral cysts nor other significant findings within the sacral canal Bones:There are no fractures, listhesis, nor ominous osseous lesions in the lumbar vertebral bodies a nd visualized sacrum. With respect to the individual levels... T12-L1: Mild disc space narrowing and anterior osseous lipping, as was also evident on MRI of [facility] 2020. Mild posterior annular bulging is noted but no prominent disc herniation. Central canal dim ensions are lower normal. There is no foraminal stenosis. Facet joints unremarkable. L1-2: Normal disc height and signal. No disc herniation nor central canal stenosis.No foraminal steno sis. Benign intraosseous hemangioma is noted in the left side of L1 vertebral body. Facet joints un remarkable. L2-3: Normal disc height. No disc herniation nor central canal stenosis.No foraminal stenosis.No face t arthropathy. L3-4: Normal disc height. No disc herniation or central canal stenosis.No foraminal stenosis.No face t arthropathy. L4-5: Normal disc height. Mild symmetrical annular bulging but no focal disc herniation evident at t his level. There are symmetrical degenerative changes in both facet joints-moderate. There is mild- moderate central canal stenosis at this level which is due to short AP dimensions of the pedicles, mi ld annular bulging and degenerative facet arthropathy. There is no prominent ligamentum flavum hyper trophy at this level. The amount of central canal stenosis has slightly progressed when compared to August 2021. There is, however, no foraminal stenosis at this level. L5-S1: This level exhibits normal disc height and signal. There is no evidence of disc herniation or central canal stenosis nor foraminal stenosis. There are mild degenerative changes in the left face t joint. Right facet joint appears unremarkable. Soft tissues: paraspinal soft tissues appear unremarkable. IMPRESSION: 1. At L4-5 level there is mild-moderate central spinal canal stenosis which has slightly progressed w hen compared to prior outside MRI scan of August 2021. This is related to mild annular bulging, sh ort AP dimensions of the pedicles and degenerative bilateral facet arthropathy. There is no prominen t focal disc herniation at this level. 2. Mild findings at T12-L1 level as described above which are unchanged from August 2021. There is no significant canal stenosis nor foraminal stenosis at this level. 3. All other levels appear unremarkable. DATA REPOSITORY:
--- NOTE | 2024-05-10 07:45 | DI.MRI_ITS ---
Exam(s) MR THORACIC SPINE WO EXAM: MR THORACIC SPINE WO CLINICAL HISTORY: Low back. TECHNIQUE: Multiplanar multisequence MRI of the thoracic spine was performed without intravenous con trast. COMPARISON: No exams were available for comparison FINDINGS: OSSEOUS: There are no acute appearing thoracic vertebral fractures. There are no ominous osseous les ions in the thoracic vertebrae. There is a mild-moderate scoliosis in the thoracic spine which is co nvex right. THORACIC SPINAL CORD: There is no abnormal signal in the cervical spinal cord and no evidence of foca l cord atrophy nor focal cord swelling. There is no evidence of syringomyelia nor significant spinal cord dysraphism. There is no evidence of mass at the conus medullaris. The position of the conus me dullaris is at L1 level. SIGNIFICANT INDIVIDUAL LEVEL FINDINGS: No dominant disc herniations evident in thoracic spine. However, on the uppermost aspect of the sagi ttal images there is advanced disc space narrowing and disc protrusion evident at C6-7 level. This s ignificantly compresses the spinal cord at this level. T12-L1: Mild degenerative disc disease and anterior osseous lipping but this is unchanged from prior outside MRI scan of August 2021. No new significant findings at this level. T9-10: Small asymmetric posterolateral right disc protrusion. This is only seen on the axial images. There is minimal mass effect upon the thecal sac. No mass effect upon the spinal cord at this leve l. No significant canal stenosis and no foraminal stenosis evident at this level. PARASPINAL TISSUES: No significant masses nor fluid collections evident. IMPRESSION: 1. Minimal findings in the thoracic spinal column. 2. There is a significant disc herniation at C6-7 level noted on the uppermost aspect of the field of view of this thoracic study and this significantly compresses the spinal cord at this level. 3. Recommend follow-up MRI of the cervical spine. MRI reports were called by myself to the ER physician 05/10/2024 at 3:22 p.m. DATA REPOSITORY:
--- NOTE | 2024-05-10 07:54 | ED.PROG_ITS ---
Date of service: 05/10/24 Time of Service: 07:54 Medical Decision Making This 54-year-old female was signed out to me at bedside. She had a choking episode and subsequently fell to the floor. She had transient weakness in her legs and a CT scan concerning for possible extension injury for which spine at [facility] [place]. Patient had decreased reflexes however good rectal tone. She is having improving sensation in her lower extremities. Multiple centers been consulted and they have declined secondary to capacity. Will attempt MRI at [facility]. Will need to reorder patient's home medications. She had elevated D-dimers pending a duplex study of her lower extremities. 3:25 PM I spoke to Dr. Valdez from radiology. No formainal stenosis and canal stenosis. Significant disc herniation at C6-7 level. I reassessed the patient. She had 5 out of 5 dorsi and plantarflexion strength. She had no saddle anesthesia. She had a catheter in place. She does still feel sharp pain in the back of her thighs bilaterally. She is having no upper extremity weakness. Will check her reflexes. Will push images to [facility] [place]. I spoke to the transfer center to reengage with spine. 3:50 PM I reassessed the patient. She had 2+ patellar reflexes bilaterally. She had no upper extremity weakness and 5 out of 5 bilateral upper extremity strength. She felt improved. MRI has been pushed to [facility]. Awaiting callback from spine. Given the patient had no upper extremity weakness or symptoms we will defer MR cervical spine at this point in time as the study can be completed as an outpatient. 4:45 PM I spoke with neurosurgery at [facility]. Unfortunately the patient did not have her thoracic spinal MRI sent to [facility]. I signed the patient out to Dr. Patiño pending consultation with [facility]. Quality:[facility] Health Related Social Needs: No Data to Display Sign Out Sign Out Data: Sign Out Comment: Pending CTA Chest PE, CT Cervical/Thoracic/Lumbar Spine after a brief choking episode and fall- stating she cannot move her legs. Refusing APAP/NSAID for pain in legs. Question aspiration PNA vs CHF on CXR. Last updated by Denver Griffiths PA at 05/09/24 22:35 Sign Out Comment: Needs transfer for bariatric/open MRI, will need be listed for bed as no capacity currently in region. Spinal precautions in the meantime. Also pending US for DVT Last updated by Carole Rodriguez MD at 05/10/24 07:45 Discharge Plan Discharge Details Chief Complaint: [id number] Primary Care Provider: Faye Martinez ED Provider: Shay Petersen Home Meds and New Rx's Prescriptions: No Action diphenhydramine HCl [Benadryl] 25 mg capsule 25 mg PO .QD PRN Patient Comments: allergies mupirocin 2 % ointment 1 applic topical BID-TID Qty: 15 0RF Rx Instructions: May substitute with cream if less expensive; apply thin layer until area/lesion resolved in L axilla/armpit zolpidem 5 mg tablet 5 mg PO QHS MDD 5mg PRN (Reason: sleep) Qty: 30 5RF Zepbound 5 mg/0.5 mL pen injector 5 mg subcut QWEEK Qty: 2 2RF trazodone 100 mg tablet 100 - 300 mg PO QHS PRN (Reason: sleep) Qty: 270 3RF Rx Instructions: For insomnia; take lowest effective dose cholecalciferol (vitamin D3) 25 mcg (1,000 unit) capsule 5,000 unit PO DAILY latanoprost 0.005 % drops 1 drp ophthalmic (eye) QPM Rx Instructions: 1 drop both eyes qhs-- amlodipine 5 mg tablet 5 mg PO DAILY MDD 10mg/24h Qty: 120 3RF Rx Instructions: Blood pressure; 5mg daily, may take up to 10mg daily. albuterol sulfate [Ventolin HFA] 90 mcg/actuation HFA aerosol inhaler See Rx Instructions .ROUTE .COMPLEX Qty: 18 6RF Dose Instruction: inhale 2 puffs by mouth and INTO THE LUNGS every 4 hours if needed for wheezing or SHORTNESS OF BREATH Rx Instructions: inhale 2 puffs by mouth and INTO THE LUNGS every 4 hours if needed for wheezing or SHORTNESS OF BREATH budesonide-formoterol [Symbicort] 160-4.5 mcg/actuation HFA aerosol inhaler 2 puff inhalation BID PRN (Reason: allergic/environmental asthma) Qty: 3 3RF Rx Instructions: Uses PRN with triggered flares (lower dose ineffective) ipratropium-albuterol 0.5 mg-3 mg(2.5 mg base)/3 mL solution for nebulization 3 ml inhalation QID PRN (Reason: shortness of breath or wheezing) Qty: 90 3RF losartan 100 mg tablet 100 mg PO DAILY Qty: 90 3RF montelukast 10 mg tablet 10 mg PO DAILY Qty: 90 3RF Rx Instructions: Asthma & allergies omeprazole 40 mg capsule,delayed release(DR/EC) 40 mg PO DAILY Qty: 90 3RF loratadine [Allergy Relief (loratadine)] 10 mg tablet See Rx Instructions .ROUTE .COMPLEX Qty: 90 2RF Dose Instruction: TAKE 1 TABLET BY MOUTH ONCE DAILY NEEDED FOR ALLERGIC SYMPTOMS Rx Instructions: TAKE 1 TABLET BY MOUTH ONCE DAILY NEEDED FOR ALLERGIC SYMPTOMS cyclobenzaprine 10 mg tablet See Rx Instructions .ROUTE .COMPLEX Qty: 60 0RF Dose Instruction: TAKE 1 TABLET BY MOUTH TWICE DAILY NEEDED FOR LUMBAR SPINE MUSCLE SPASM Rx Instructions: TAKE 1 TABLET BY MOUTH TWICE DAILY NEEDED FOR LUMBAR SPINE MUSCLE SPASM prednisone 10 mg tablet See Rx Instructions PO DAILY Qty: 30 0RF Rx Instructions: t4 tabs for 3 days, the t3 tabs for 3 days, then t2 tabs for 3 days, then t1 tab for 3 days orally daily; (12 day taper).
[2024-05-10] MEDS: Ibuprofen 200 MG TAB (08:16)
--- NOTE | 2024-05-10 19:54 | W.EDPROG ---
Date of service: 05/10/24 Time of Service: 20:43 Medical Decision Making In brief, this is a 54-year-old female patient who presented to the ED after a syncopal episode following a choking event, complicated by lower extremity weakness and burning pain in the back of her legs. At the time that I took over her care her disposition was pending final discussion of MRI imaging with neurosurgery, which was obtained due to her leg weakness. She had evidence of wear and tear that appears chronic with no acute injuries on her MRI L-spine, MRI T-spine did demonstrate us cervical disc herniation at C6/C7, that does not appear new and is not associated with any upper extremity deficits. Neurosurgery feels that none of the findings are acute and do not correspond with the location of her symptoms. For this reason I cleared her spinal precautions, the patient ambulated effectively with a walker and was able to void after removal of her [place]. Given the improvement in her breathing with a dose of Lasix here in the emergency department, we did provide her with a short course of Lasix to be taken in the outpatient environment, with instructions to follow-up with her primary care provider for laboratory recheck and determination of ongoing therapy. At this time, the patient has had a full medical evaluation and is safe for discharge to home. They are hemodynamically stable, ambulatory, and tolerating PO. They are understanding of the follow-up plan and return precautions. They left our facility without incident. Geneva Patiño MD Quality:[facility] Health Related Social Needs: No Data to Display Sign Out Sign Out Data: Sign Out Comment: Pending CTA Chest PE, CT Cervical/Thoracic/Lumbar Spine after a brief choking episode and fall- stating she cannot move her legs. Refusing APAP/NSAID for pain in legs. Question aspiration PNA vs CHF on CXR. Last updated by Denver Griffiths PA at 05/09/24 22:35 Sign Out Comment: Needs transfer for bariatric/open MRI, will need be listed for bed as no capacity currently in region. Spinal precautions in the meantime. Also pending US for DVT Last updated by Carole Rodriguez MD at 05/10/24 07:45 Sign Out Comment: Follow-up with [facility] spine concern is patient with transient lower extremity now improved weakness and hyporeflexia. No saddle anesthesia. Lower extremity duplex studies negative for DVT. Patient is tolerated p.o. She is interested in ambulating and possibility of discharge. Images pushed to [facility]. Last updated by Shay Petersen MD at 05/10/24 16:47 Discharge Plan Disposition Patient Disposition: Home Condition: Stable Discharge Details Clinical Impression: Bilateral leg weakness, CKD (chronic kidney disease) stage 2, GFR 60-89 ml/min, Morbid obesity with BMI of 60.0-69.9, adult, Hypertension, Prediabetes, Cervical herniated disc Primary Care Provider: Faye Martinez ED Provider: Geneva Patiño Home Meds and New Rx's Prescriptions: New furosemide [Lasix] 40 mg tablet 40 mg PO DAILY Qty: 14 0RF No Action diphenhydramine HCl [Benadryl] 25 mg capsule 25 mg PO .QD PRN Patient Comments: allergies mupirocin 2 % ointment 1 applic topical BID-TID Qty: 15 0RF Rx Instructions: May substitute with cream if less expensive; apply thin layer until area/lesion resolved in L axilla/armpit zolpidem 5 mg tablet 5 mg PO QHS MDD 5mg PRN (Reason: sleep) Qty: 30 5RF Zepbound 5 mg/0.5 mL pen injector 5 mg subcut QWEEK Qty: 2 2RF trazodone 100 mg tablet 100 - 300 mg PO QHS PRN (Reason: sleep) Qty: 270 3RF Rx Instructions: For insomnia; take lowest effective dose cholecalciferol (vitamin D3) 25 mcg (1,000 unit) capsule 5,000 unit PO DAILY latanoprost 0.005 % drops 1 drp ophthalmic (eye) QPM Rx Instructions: 1 drop both eyes qhs-- amlodipine 5 mg tablet 5 mg PO DAILY MDD 10mg/24h Qty: 120 3RF Rx Instructions: Blood pressure; 5mg daily, may take up to 10mg daily. albuterol sulfate [Ventolin HFA] 90 mcg/actuation HFA aerosol inhaler See Rx Instructions .ROUTE .COMPLEX Qty: 18 6RF Dose Instruction: inhale 2 puffs by mouth and INTO THE LUNGS every 4 hours if needed for wheezing or SHORTNESS OF BREATH Rx Instructions: inhale 2 puffs by mouth and INTO THE LUNGS every 4 hours if needed for wheezing or SHORTNESS OF BREATH budesonide-formoterol [Symbicort] 160-4.5 mcg/actuation HFA aerosol inhaler 2 puff inhalation BID PRN (Reason: allergic/environmental asthma) Qty: 3 3RF Rx Instructions: Uses PRN with triggered flares (lower dose ineffective) ipratropium-albuterol 0.5 mg-3 mg(2.5 mg base)/3 mL solution for nebulization 3 ml inhalation QID PRN (Reason: shortness of breath or wheezing) Qty: 90 3RF losartan 100 mg tablet 100 mg PO DAILY Qty: 90 3RF montelukast 10 mg tablet 10 mg PO DAILY Qty: 90 3RF Rx Instructions: Asthma & allergies omeprazole 40 mg capsule,delayed release(DR/EC) 40 mg PO DAILY Qty: 90 3RF loratadine [Allergy Relief (loratadine)] 10 mg tablet See Rx Instructions .ROUTE .COMPLEX Qty: 90 2RF Dose Instruction: TAKE 1 TABLET BY MOUTH ONCE DAILY NEEDED FOR ALLERGIC SYMPTOMS Rx Instructions: TAKE 1 TABLET BY MOUTH ONCE DAILY NEEDED FOR ALLERGIC SYMPTOMS cyclobenzaprine 10 mg tablet See Rx Instructions .ROUTE .COMPLEX Qty: 60 0RF Dose Instruction: TAKE 1 TABLET BY MOUTH TWICE DAILY NEEDED FOR LUMBAR SPINE MUSCLE SPASM Rx Instructions: TAKE 1 TABLET BY MOUTH TWICE DAILY NEEDED FOR LUMBAR SPINE MUSCLE SPASM prednisone 10 mg tablet See Rx Instructions PO DAILY Qty: 30 0RF Rx Instructions: t4 tabs for 3 days, the t3 tabs for 3 days, then t2 tabs for 3 days, then t1 tab for 3 days orally daily; (12 day taper). Discharge Instructions Instructions: Herniated Disc (DC) Additional Instructions: You were seen in the emergency department today for evaluation after a choking episode and fall. You also had evaluation for your leg weakness and back pain, were found to have [id number] changes in your lower back and a herniated disc in your neck. We discussed your case with the spinal surgeons at [facility] and at this time it is safe for you to go home, use your walker for ambulation, and follow-up with your primary care provider at your appointment on . If you develop any weakness, numbness, or other changes in your arms, you need to return to the emergency department for reevaluation. Your primary care provider may also elect to obtain additional imaging of your neck in the future if you continue to have problems. We did provide you with a dose of Lasix here that significantly improved your breathing, and we have provided you with a short prescription for this medication to use in the outpatient environment. Please follow-up with your primary care provider as you will need laboratory rechecks to determine if this is a safe medication for you to continue taking long-term. Thank you for allowing us to be part of your care.
--- NOTE | 2024-05-10 20:51 | NUR.NOTE ---
Nursing Note: 2000: ambulated pt with walker. Pt did well with little shortness of breath. Pt feels stable enough to go home and do well with the walker. Reported to
== END 2024-05-10 20:45 | disposition home or self-care (01) ==
PROVIDERS: Physician Assistant; Emergency Provider Emergency Medicine; PCP Nurse Practitioner Adult Health
DX: R55 Syncope and collapse (principal); M50.20 Other cervical disc displacement, unspecified cervical region; R29.898 Other symptoms and signs involving the musculoskeletal system; E66.01 Morbid (severe) obesity due to excess calories; Z68.44 Body mass index [BMI] 60.0-69.9, adult; I10 Essential (primary) hypertension; R53.1 Weakness
CPT/HCPCS: 00123; 36415; 51702; 71275; 80053; 82550; 83690; 93005; 94640; 96361; 96365; 96375; 99285; 70450; 71046; 72125; 72128; 72131; 72146; 72148; 80320; 83605; 83735; 83880; 84484; 85025; 85379; 93010; 93970; 99284; J0696; J1940; J3490; J7620

== ENCOUNTER → 2025-03-13 13:23 | Outpatient (BNVA) | payer MEDICARE, SELFPAY | PROVIDERS: PCP Nurse Practitioner Adult Health; Referring Provider Nurse Practitioner Adult Health; Visit Provider Physician Assistant Surgical | DX: J45.40 Moderate persistent asthma, uncomplicated (principal); F17.210 Nicotine dependence, cigarettes, uncomplicated; E66.01 Morbid (severe) obesity due to excess calories; Z68.44 Body mass index [BMI] 60.0-69.9, adult | CPT/HCPCS: 99215; G2212; 36415 ==

== ENCOUNTER 2025-03-13 16:05 | Outpatient (REF) | payer MEDICARE, SELFPAY ==
[2025-03-13 15:26] LABS: Abs Immature Grans 0.03 10^3/uL (0.0-0.06); HCT 39.8 % (36.0-46.0); HGB 11.9 g/dL (11.2-15.7); Immature Grans % 0.4 %; MCH 25.2 pg (27.0-33.0); MCHC 29.9 % (32.0-36.0); MCV 84 fL (80-95); MPV 8.9 fL (8.0-11.0); Platelet Count 265 10^3/uL (130-400); RBC 4.73 10^6/uL (3.93-5.22); RDW 17.8 % (11.7-14.6); RDW-SD 53.7 fL; WBC 8.24 10^3/uL (4.4-10.8)
[2025-03-13 16:33] LABS: TSH 2.93 uIU/mL (0.36-3.74)
== END 2025-03-13 16:06 | disposition home or self-care (01) ==
LOC: LBN 16:05
PROVIDERS: PCP Nurse Practitioner Adult Health; Visit Provider Physician Assistant Surgical
DX: J45.40 Moderate persistent asthma, uncomplicated (principal); R53.83 Other fatigue
CPT/HCPCS: 82785; 84443; 85025

== ENCOUNTER 2025-03-19 10:17 | Outpatient (CLI) | payer MEDICARE, SELFPAY ==
[2025-03-19] VITALS (7 sets, daily range): BP systolic 120–200; BP diastolic 78–118; PULSE 79–90; RESP 21–32; TEMP 37; O2SAT 86–94
--- NOTE | 2025-03-19 06:00 | DI.RAD_ITS ---
Exam(s) XR PAIN CLINIC LUMBAR SP 2V EXAM: XR PAIN CLINIC LUMBAR SP 2V CLINICAL HISTORY: DX: Lumbar Radiculopathy TECHNIQUE: 2D and realtime digital imaging was performed. CONTRAST MATERIAL: Refer to procedure report. COMPARISON: No exams were available for comparison FINDINGS: Fluoroscopy was provided for Dr. Beth during the performance of a lumbar epidural steroid injection. Please refer to the procedure report for complete details. Ka,r=26.6 mGy IMPRESSION: RADIATION DOSE DELIVERED: 0.0 0.0 0
[2025-03-19] MEDS: Omnipaque 240 MG/ML 50 ML BTL IJ (11:44)
[2025-03-19] MEDS: Epidural Tray 1 EACH MC (11:44)
[2025-03-19] MEDS: methylPREDNISolone ACETATE 80 MG/ML VIAL IJ (11:44)
--- NOTE | 2025-03-19 11:44 | PDOC.PAIN_ITS ---
Date of service: 03/19/25 Time of Service: 11:44 Pain Managment Procedure Note Procedure Note Procedure Note: PROCEDURE NOTE LUMBAR EPIDURAL STEROID INJECTION Date of Service: March 19, 2025 Patient:Jamia Rubin? Provider: Antonio Beth DO, MPH Jamia Erickson has been referred to the [facility] for a lumbar epidural steroid injection. Pre-operative diagnosis: Lumbosacral Radiculopathy ICD-10 M54.16 Post-operative diagnosis: Same Pre-Procedure Pain: VAS= 8 /10 Comments: I previously evaluated her in the office. Her symptoms have not changed. Jamia was interviewed and the medical record was reviewed.? There were no medical, pharmacologic, radiographic or other structural contraindications to attempting fluoroscopically guided Lumbar epidural steroid injection.? Risks, potential side effects, indications, and potential benefits of the procedure were reviewed with Jamia.? Questions and concerns were addressed.? After it was clear that Jamia was fully informed about the procedure, the printed consent form was signed by the patient and myself.? Jamia was placed in the prone position on the fluoroscopy table and automated blood pressure cuff and pulse oximeter applied. The skin entry point for entering/approaching the epidural space for the lumbar epidural steroid injection was marked. Following thorough chlorhexadine preparation of the skin and draping and 1% lidocaine infiltration of the skin entry point and subcutaneous tissues, an 18 gauge 7 Touhy needle was placed and advanced under fluoroscopic guidance and with loss of resistance technique into the L4-L5 epidural space. Needle tip placement and depth were aided and confirmed by fluoroscopy. There was no paresthesia or return of blood or CSF through the needle. 1 mls of Omnipaque 240 was injected with clear epidural spread confirmed with fluoroscopy. 80 mg of Depo-Medrol was? injected. This was followed by 1 ml of preservative-free normal saline to flush the steroid out of the needle. There was no unusual discomfort expressed by Jamia. The needle was withdrawn without difficulty. (49 mls of Omnipaque was wasted) Jamia was observed and was without hemodynamic, neurologic, or allergic reactions.? Fluoroscopic images were digitally archived. Jamia's vital signs were stable throughout the procedure and were as recorded in nursing records. Follow up plans and appointments were discussed with Jamia. Post procedure instruction was given as documented in nursing records and having met discharge criteria Jamia was discharged from the [facility]. COMMENTS: No apparent complications. Post-procedure pain: VAS= 4/10. Jamia to contact [facility] as needed. If at least 50% improvement in pain and/or function for at least 3 months is achieved, this procedure can be repeated. I personally performed this entire procedure. ANTONIO BETH DO, MPH ABPMR-subspecialty board certification in Pain Medicine [facility] Coding Conscious Sedation used for procedure: No CPT Codes: Inj Spine L/S w/Imaging - [id number] ([id number] ~G) Additional Codes: Date of Service (26485) Date of service: 03/19/25 Diagnoses: lumbar radiculopathy
== END 2025-03-19 10:18 | disposition home or self-care (01) ==
LOC: PC 10:19
PROVIDERS: PCP Nurse Practitioner Adult Health; Visit Provider Preventive Medicine Occupational Medicine
DX: M54.50 Low back pain, unspecified (principal); M54.16 Radiculopathy, lumbar region
CPT/HCPCS: 62323; 72100; J1010; Q9967

== ENCOUNTER → 2025-04-22 10:28 | Outpatient (BNVA) | payer MEDICARE, SELFPAY | PROVIDERS: PCP Nurse Practitioner Adult Health; Referring Provider Nurse Practitioner Adult Health; Visit Provider Physician Assistant Surgical | DX: J45.40 Moderate persistent asthma, uncomplicated (principal); F17.200 Nicotine dependence, unspecified, uncomplicated; E66.01 Morbid (severe) obesity due to excess calories; Z68.44 Body mass index [BMI] 60.0-69.9, adult | CPT/HCPCS: 99214 ==

== ENCOUNTER → 2025-07-22 08:32 | Outpatient (BNVA) | payer MEDICARE, SELFPAY | PROVIDERS: PCP Nurse Practitioner Adult Health; Referring Provider Nurse Practitioner Adult Health; Visit Provider Physician Assistant Surgical | DX: J45.40 Moderate persistent asthma, uncomplicated (principal); F17.210 Nicotine dependence, cigarettes, uncomplicated; E66.01 Morbid (severe) obesity due to excess calories; Z68.44 Body mass index [BMI] 60.0-69.9, adult; E78.00 Pure hypercholesterolemia, unspecified; I10 Essential (primary) hypertension; N18.2 Chronic kidney disease, stage 2 (mild) | CPT/HCPCS: 99214 ==

== ENCOUNTER 2025-07-24 01:47 | Outpatient (CLI) | payer MEDICARE, SELFPAY ==
[2025-07-24 07:41] LABS: Lipase 494 U/L (<53)
[2025-07-24 07:42] LABS: Amylase 165 U/L (30-118)
[2025-07-24 07:52] LABS: D-Dimer 1122 ng/mlFEU (<500)
[2025-07-24 10:30] LABS: ALT 426 U/L (10-49); AST 241 U/L (<34); Albumin 4.2 g/dL (3.4-5.0); Alkaline Phosphatase 493 U/L (46-116); Anion Gap 7.5 mmol/L (3-11); BUN 12 mg/dL (9-23); Bilirubin, Total 3.00 mg/dL (0.2-1.2); CO2 29.5 mmol/L (20.0-31.0); Calcium 9.5 mg/dL (8.3-10.6); Chloride 102 mmol/L (98-107); Cholesterol 262 mg/dL (<200); Glucose 122 mg/dL (74-106); HDL Cholesterol 94 mg/dL (>40); Potassium 4.3 mmol/L (3.5-5.1); Sodium 139 mmol/L (136-145); Total Protein 7.4 g/dL (5.7-8.2)
[2025-07-24 10:57] LABS: Microalb ug/mg Crea 1726.5 ug/mg Cr
== END 2025-07-24 01:48 | disposition home or self-care (01) ==
LOC: LBO 01:47
PROVIDERS: PCP Nurse Practitioner Adult Health; Visit Provider Physician Assistant Surgical
DX: R10.10 Upper abdominal pain, unspecified (principal); Z68.44 Body mass index [BMI] 60.0-69.9, adult; I10 Essential (primary) hypertension; E66.01 Morbid (severe) obesity due to excess calories; E78.00 Pure hypercholesterolemia, unspecified; R73.03 Prediabetes; N18.2 Chronic kidney disease, stage 2 (mild)
CPT/HCPCS: 36415; 80053; 80061; 83690; 82043; 82150; 82570; 85379

== ENCOUNTER 2025-07-24 11:15 | Inpatient (IN) | payer MEDICARE, SELFPAY ==
[2025-07-24 11:20] VITALS: BP 157/80; PULSE 93; RESP 16; TEMP 36.9; O2SAT 98
--- NOTE | 2025-07-24 12:00 | RT.EKG_ITS ---
APPROVED REPORT Exam: Resting ECG Reason for Exam: epigastric pain Patient Location: E HR:77 bpm ECG Measurements Heart Rate 77 AXIS OH 126 P 8 QRSd 100 QRS 4 QT 391 T 57 QTc 442 Conclusion Sinus rhythm...normal P axis, V-rate 60- 99 t wave inv V1-2 (old compared to prior)
--- NOTE | 2025-07-24 12:13 | DI.US_ITS ---
Exam(s) US ABDOMEN LIMITED EXAM: US ABDOMEN LIMITED CLINICAL HISTORY: epigastric pain, lipase, lft's, bilirubin elevated TECHNIQUE: Ultrasound abdomen performed using standard protocol. COMPARISON: CT CT THORACIC LUMBAR SPINE WO from 05/09/[address] CHEST PE CTA from 05/09/2024 MR MR LUMBAR SPINE WO from 05/10/2024 FINDINGS: The exam is limited by patient body habitus. LIVER: Enlarged at 20 cm in length. Question of mild hepatic steatosis. GALLBLADDER: No evidence of cholelithiasis. No evidence of wall thickening. No pericholecystic fluid identified. GUTIERREZ'S SIGN: Negative. BILIARY SYSTEM: There is dilatation of the common duct to 12 millimeters. No common bile duct stones are seen. No intrahepatic biliary ductal dilation. KIDNEY: Poorly visualized. The right kidney is normal in size. No gross evidence of renal calculi. No evidence of hydronephrosis. No renal mass or cyst identified. PANCREAS: Not well visualized ABDOMINAL AORTA AND IVC: Visualized portions normal caliber. ASCITES: None seen. IMPRESSION: Dilated common bile duct. No evidence of common bile duct stone or gallstones. DATA REPOSITORY:
[2025-07-24 12:32] LABS: Abs Immature Grans 0.06 10^3/uL (0.0-0.06); HCT 43.1 % (36.0-46.0); HGB 13.7 g/dL (11.2-15.7); Immature Grans % 0.7 %; MCH 27.1 pg (27.0-33.0); MCHC 31.8 % (32.0-36.0); MCV 85 fL (80-95); MPV 9.4 fL (8.0-11.0); Platelet Count 301 10^3/uL (130-400); RBC 5.06 10^6/uL (3.93-5.22); RDW 15.8 % (11.7-14.6); RDW-SD 48.2 fL; WBC 8.63 10^3/uL (4.4-10.8)
[2025-07-24] MEDS: Normal Saline 1,000 ML 1000 ML IV (14:30)
--- NOTE | 2025-07-24 14:56 | ED.GENADUL_ITS ---
Discharge Plan Disposition Patient Disposition: Admit to [facility] Discharge Details Clinical Impression: Choledocholithiasis, Pancreatitis Primary Care Provider: Faye Martinez ED Provider: Claire Mackey Home Meds and New Rx's Prescriptions: No Action diphenhydramine HCl [Benadryl] 25 mg capsule 25 mg PO .QD PRN Patient Comments: allergies (DME) B/L knee-high compression socks See Rx Instructions .Route .MEDSUPPLY Qty: 1 0RF Rx Instructions: Venous insufficiency with b/l LE pitting edema, 10-15mmHg or 15-20mmHg zolpidem 5 mg tablet 5 mg PO QHS MDD 5mg PRN (Reason: sleep) Qty: 30 5RF docusate sodium 100 mg capsule 100 mg PO DAILY PRN (Reason: stool softener) Qty: 90 3RF Rx Instructions: For Zepbound cholecalciferol (vitamin D3) 25 mcg (1,000 unit) capsule 5,000 unit PO DAILY latanoprost 0.005 % drops 1 drp ophthalmic (eye) QPM Rx Instructions: 1 drop both eyes qhs-- budesonide-formoterol [Symbicort] 160-4.5 mcg/actuation HFA aerosol inhaler 2 puff inhalation BID PRN (Reason: allergic/environmental asthma) Qty: 3 3RF Rx Instructions: Uses PRN with triggered flares (lower dose ineffective) ipratropium-albuterol 0.5 mg-3 mg(2.5 mg base)/3 mL solution for nebulization 3 ml inhalation QID PRN (Reason: shortness of breath or wheezing) Qty: 90 3RF albuterol sulfate [Ventolin HFA] 90 mcg/actuation HFA aerosol inhaler See Rx Instructions .ROUTE .COMPLEX Qty: 18 10RF Dose Instruction: INHALE 2 PUFFS BY MOUTH EVERY 4 HOURS NEEDED FOR WHEEZING FOR SHORTNESS OF BREATH Rx Instructions: INHALE 2 PUFFS BY MOUTH EVERY 4 HOURS NEEDED FOR WHEEZING FOR SHORTNESS OF BREATH loratadine [Allergy Relief (loratadine)] 10 mg tablet See Rx Instructions .ROUTE .COMPLEX Qty: 90 3RF Dose Instruction: TAKE 1 TABLET BY MOUTH ONCE DAILY NEEDED FOR ALLERGIC SYMPTOMS Rx Instructions: TAKE 1 TABLET BY MOUTH ONCE DAILY NEEDED FOR ALLERGIC SYMPTOMS trazodone 100 mg tablet See Rx Instructions .ROUTE .COMPLEX Qty: 270 3RF Dose Instruction: TAKE 1 TO 3 TABLETS BY MOUTH AT BEDTIME NEEDED FOR SLEEP / FOR INSOMNIA - TAKE LOWEST EFFECTIVE DOSE Rx Instructions: TAKE 1 TO 3 TABLETS BY MOUTH AT BEDTIME NEEDED FOR SLEEP / FOR INSOMNIA - TAKE LOWEST EFFECTIVE DOSE mupirocin 2 % ointment See Rx Instructions .ROUTE .COMPLEX Qty: 22 1RF Dose Instruction: APPLY OINTMENT TOPICALLY TO AFFECTED AREA 2 TO 3 TIMES DAILY NEEDED FOR SKIN LESIONS/BOILS,APPLY THIN UNTIL LESION RESOLVED Rx Instructions: APPLY OINTMENT TOPICALLY TO AFFECTED AREA 2 TO 3 TIMES DAILY NEEDED FOR SKIN LESIONS/BOILS,APPLY THIN UNTIL LESION RESOLVED cyclobenzaprine 10 mg tablet See Rx Instructions .ROUTE .COMPLEX Qty: 60 0RF Dose Instruction: TAKE 1 TABLET BY MOUTH TWICE DAILY NEEDED FOR LUMBAR SPINE MUSCLE SPASM Rx Instructions: TAKE 1 TABLET BY MOUTH TWICE DAILY NEEDED FOR LUMBAR SPINE MUSCLE SPASM losartan 100 mg tablet See Rx Instructions .ROUTE .COMPLEX Qty: 90 3RF Dose Instruction: Take 1 tablet by mouth once daily Rx Instructions: Take 1 tablet by mouth once daily montelukast 10 mg tablet See Rx Instructions .ROUTE .COMPLEX Qty: 90 3RF Dose Instruction: TAKE 1 TABLET BY MOUTH ONCE DAILY FOR ASTHMA AND FOR ALLERGIES Rx Instructions: TAKE 1 TABLET BY MOUTH ONCE DAILY FOR ASTHMA AND FOR ALLERGIES Zepbound 7.5 mg/0.5 mL pen injector 7.5 mg subcut QWEEK Qty: 2 2RF amlodipine 5 mg tablet See Rx Instructions .ROUTE .COMPLEX Qty: 120 3RF Dose Instruction: TAKE 1 TABLET BY MOUTH ONCE DAILY FOR BLOOD PRESSURE MAY TAKE UP TO MAX 10MG DAILY Rx Instructions: TAKE 1 TABLET BY MOUTH ONCE DAILY FOR BLOOD PRESSURE MAY TAKE UP TO MAX 10MG DAILY omeprazole 40 mg capsule,delayed release(DR/EC) See Rx Instructions .ROUTE .COMPLEX Qty: 90 3RF Dose Instruction: Take 1 capsule by mouth once daily Rx Instructions: Take 1 capsule by mouth once daily HPI General Date/Time Provider Initiated Documentation: 07/24/25 11:32 . HPI Narrative: This 55-year-old female with history of obstructive sleep apnea prediabetes tobacco use hypercholesterolemia, asthma, chronic kidney disease, glaucoma presents with abdominal pain for the past 5 days. She has an outpatient labs ordered and was told they were abnormal which is why she presents. She denies any fever or chills. She denies any chest pain or shortness of breath. Denies history of coagulopathy, recent flights, surgeries, long drives, exogenous hormones. She has any dizziness or weakness she has had nausea without vomiting. She has some mild anorexia secondary to nausea. Related Data Home Medications ?Medication ?Instructions ?Recorded ?Confirmed diphenhydramine HCl 25 mg capsule 25 mg PO .QD PRN 07/22/25 (Benadryl) cholecalciferol (vitamin D3) 25 5,000 unit PO DAILY 07/22/25 mcg (1,000 unit) capsule latanoprost 0.005 % eye drops 1 drp ophthalmic (eye) Q PM 04/19/23 07/22/25 Ventolin HFA 90 mcg/actuation See Rx Instructions .Rou te 06/22/24 07/22/25 aerosol inhaler (albuterol sulfate) .COMPLEX #18 grams budesonide-formoterol HFA 160 2 puff inhalation BID ND N 08/26/24 07/22/25 mcg-4.5 mcg/actuation aerosol allergic/environmental a sta #3 inhaler (Symbicort) units ipratropium 0.5 mg-albuterol 3 mg 3 ml inhalation QID PRN shortness 08/26/24 07/22/25 (2.5 mg base)/3 mL nebulization of breath or wheezing #90 mL soln loratadine 10 mg tablet (Allergy See Rx Instructions . Route 09/23/24 07/22/25 Relief (loratadine)) .COMPLEX #90 tabs zolpidem 5 mg tablet 5 mg PO QHS PRN sleep #30 ta bs 01/16/25 07/22/25 B/L knee-high compression socks #1 ea 02/20/25 5 mupirocin 2 % topical ointment See Rx Instructions .[place] 02/20/25 07/22/25 .COMPLEX #22 grams trazodone 100 mg tablet See Rx Instructions .Route 0 02/20/25 07/22/25 .COMPLEX #270 tabs docusate sodium 100 mg capsule 100 mg PO DAILY PRN sto ol softener 05/14/25 07/22/25 #90 caps cyclobenzaprine 10 mg tablet See Rx Instructions .Rout e 05/15/25 07/22/25 .COMPLEX #60 tabs losartan 100 mg tablet See Rx Instructions .Route 0 05/29/25 07/22/25 .COMPLEX #90 tabs montelukast 10 mg tablet See Rx Instructions .Route 1 07/22/25 .COMPLEX #90 tabs tirzepatide (weight loss) 7.5 7.5 mg (0.5 mL) subcut Q WEEK #2 mL 06/09/25 mg/0.5 mL subcutaneous pen injector (Zepbound) amlodipine 5 mg tablet See Rx Instructions .Route 1 07/22/25 .COMPLEX #120 tabs omeprazole 40 mg capsule,delayed See Rx Instructions . Route 07/09/25 07/22/25 release .COMPLEX #90 caps Previous Rx's ?Medication ?Instructions ?Recorded Ventolin HFA 90 mcg/actuation See Rx Instructions .Rou te 06/22/24 aerosol inhaler (albuterol sulfate) .COMPLEX #18 grams budesonide-formoterol HFA 160 2 puff inhalation BID ND N 08/26/24 mcg-4.5 mcg/actuation aerosol allergic/environmental a sthma #3 inhaler (Symbicort) units ipratropium 0.5 mg-albuterol 3 mg 3 ml inhalation QID PRN shortness 08/26/24 (2.5 mg base)/3 mL nebulization of breath or wheezing #90 mL soln loratadine 10 mg tablet (Allergy See Rx Instructions . Route 09/23/24 Relief (loratadine)) .COMPLEX #90 tabs zolpidem 5 mg tablet 5 mg PO QHS PRN sleep #30 ta bs 01/16/25 B/L knee-high compression socks #1 ea 02/20/25 mupirocin 2 % topical ointment See Rx Instructions .Ro [place] 02/20/25 .COMPLEX #22 grams trazodone 100 mg tablet See Rx Instructions .Route 0 02/20/25 .COMPLEX #270 tabs docusate sodium 100 mg capsule 100 mg PO DAILY PRN sto ol softener 05/14/25 #90 caps cyclobenzaprine 10 mg tablet See Rx Instructions .Rout e 05/15/25 .COMPLEX #60 tabs losartan 100 mg tablet See Rx Instructions .Route 0 05/29/25 .COMPLEX #90 tabs montelukast 10 mg tablet See Rx Instructions .Route 1 .COMPLEX #90 tabs tirzepatide (weight loss) 7.5 7.5 mg (0.5 mL) subcut Q WEEK #2 mL 06/09/25 mg/0.5 mL subcutaneous pen injector (Zepbound) amlodipine 5 mg tablet See Rx Instructions .Route 1 .COMPLEX #120 tabs omeprazole 40 mg capsule,delayed See Rx Instructions . Route 07/09/25 release .COMPLEX #90 caps Allergies Allergy/AdvReac Type Severity Reaction Status Date / Time latanoprost (From [facility]) Allergy Severe eye bleed, Verified 07/22/25 08:39 blurry visioin metoprolol Allergy Severe Anaphylaxis Verified 07/22/25 08:39 netarsudil (From [facility]) Allergy Severe eye bleed, Verified 07/22/25 08:39 blurry visioin tramadol Allergy Intermediate vomiting Verified 07/22/25 08:39 Latex, Natural Rubber Allergy irritation, Verified 07/22/25 08:39 swelling sulfamethoxazole (From AdvReac Intermediate vomiting Verified 07/22/25 08:39 Bactrim) trimethoprim (From Bactrim) AdvReac Intermediate vomiting Verified 07/22/25 08:39 General Stated Complaint: Abd Prob AMADOR: 3 Exam Narrative Exam Narrative: Alert and oriented 55-year-old female in no acute distress, tenderness with palpation exquisitely in the right upper quadrant and epigastrium, no CVA tenderness, answering questions appropriately, distal pulses intact no respiratory distress lungs clear to auscultation, regular rate rhythm Course Vital Signs Vital signs: Vital Signs Temperature 36.9 C 07/24/25 11:20 Pulse 93 H 07/24/25 11:20 Respiratory Rate 16 07/24/25 11:20 Blood Pressure 157/80 H 07/24/25 11:20 Pulse Oximetry 98 07/24/25 11:20 Temperature 36.9 C 07/24/25 11:20 Pulse 93 H 07/24/25 11:20 Respiratory Rate 16 07/24/25 11:20 Blood Pressure 157/80 H 07/24/25 11:20 Pulse Oximetry 98 07/24/25 11:20 Pain Level 6 07/24/25 11:20 Lab/Test Results Lab/Test Results: Laboratory Tests Range/Units 07/24/25 12:03 WBC (4.4-10.8) 10^3/uL 8.63 RBC (3.93-5.22) 10^6/uL 5.06 Hgb (11.2-15.7) g/dL 13.7 Hct (36.0-46.0) % 43.1 MCV (80-95) fL 85 MCH (27.0-33.0) pg 27.1 MCHC (32.0-36.0) % 31.8 L RDW (11.7-14.6) % 15.8 H Plt Count (130-400) 10^3/uL 301 MPV (8.0-11.0) fL 9.4 Immature Gran % % 0.7 Neutrophils % % 80.9 Lymphocytes % % 9.6 Monocytes % % 5.2 Eosinophils % % 2.9 Basophils % % 0.7 Nucleated RBC % (0.0-0.3) % 0.0 Absolute Neutrophils (1.2-6.7) 10^3/uL 6.98 H Absolute Lymphocytes (1.2-3.4) 10^3/uL 0.83 L Absolute Monocytes (0.1-0.8) 10^3/uL 0.45 Absolute Eosinophils (0.0-0.7) 10^3/uL 0.25 Absolute Basophils (0.0-0.2) 10^3/uL 0.06 Medical Decision Making Results: Ultrasound shows evidence of common bile duct dilation to 12 mm without acute cholecystitis, LFTs elevated ALT of 200, AST of 400, lipase of 458, amylase of 257, no leukocytosis, hemodynamically stable, afebrile, alk phos of 256, T. bili of 3, incidental D-dimer of 1200 which was ordered by another provider Assessment and plan: On assessment patient's exquisitely tender in her right upper quadrant but is overall nontoxic in appearance. She has evidence of obstructive disease on ultrasound and with her labs with an elevated bilirubin lipase LFTs and a dilated common bile duct. I spoke with Dr. Glasgow, cat swamper at [facility] and unfortunately they are quite busy today and unable to take this patient for ERCP however we are to call tomorrow morning at 730 and patient will remain n.p.o. this evening after 12 4 ERCP tomorrow. They asked that we withhold DVT prophylaxis. Recommended fluids and return phone call should patient develop fever, chills, worsening pain, elevated CBC, or should any new concerns arise. Patient's pain is increased slightly so I did we will order some morphine and some antiemetics should she need it. Case discussed with admitting hospitalist, Dr. Wang who is excepted patient to her service Quality:[facility] Health Related Social Needs: Health related social needs inadequate housing [facility] All Active Problems (Updated 07/24/25 @ 15:40 by TYREE Worthy) Pancreatitis (Chronic) Choledocholithiasis (Acute) Upper abdominal discomfort (Acute) Severe obstructive sleep apnea in adult (Chronic) CPAP Lumbar radiculitis (Acute) Posterior left knee pain (Acute ~01/2025) Mechanical low back pain (Acute) Herniation of cervical intervertebral disc with radiculopathy (Acute ~06/2024) 06/18/24 [facility] - PT and F/U MRI recommended Degenerative lumbar spinal stenosis (Chronic ~2020) MRI 05/2024 & 2020 (progressing) Hernia, ventral (Acute) [facility] GI-06/13/23 06-26-23: [facility] outpatient CT abdomen w/o contrast. Impression: no acute findings in the abdomen on noncontrast scanning. Small fat containing paraumbilical ventral abdominal wall hernia. Prediabetes (Acute ~04/2023) New DX 04/2023 Chronic back pain (Acute ~08/2021) MRI 2020 [facility] Nicotine use disorder (Chronic) 35 pack year Morbid obesity with BMI of 60.0-69.9, adult (Chronic) Asthma (Chronic) H/O Pulm ([place]) Allergic & environmentally triggered; uses Symbicort PRN, duonebs PRN. 02/2022 Spirometry--NORMAL Hypercholesterolemia (Chronic ~02/2022) Gait disturbance (Chronic) R/T R ankle; has cane CKD (chronic kidney disease) stage 2, GFR 60-89 ml/min (Acute ~2011) Glaucoma (Chronic) [facility] Migraines (Chronic) Infrequent--lifestyle managed (sleep &/or Naproxen) Osteoarthritis (Chronic) Insomnia (Chronic) L-T zolpidem (2021: dose reduction successful; med discontinuation unsuccessful) Trazodone increase 02/16/23 from 100 to 200mg HS Anxiety (Chronic) GERD (gastroesophageal reflux disease) (Chronic) Hypertension (Chronic) Depression (Chronic) Medical History (Updated 07/24/25 @ 15:40 by TYREE Worthy) Elevated BP without diagnosis of hypertension Elevated serum creatinine Epigastric pain [facility] 06/13/23 Bronchospasm Surgical History History of ankle surgery (~2007) Plates Bone spur of right ankle (~2006) Surgically removed H/O ankle fusion (~2008) [facility] Family History Father , murdered Anxiety Alcohol use disorder Mother Anxiety Asthma Hypertension Social History Smoking/Tobacco Use Status: Current-Occasional Tobacco Type: cigarettes Smoking packs per day: 0.5 Smoking cigarettes per day: 10.0 Years smoked: 40 Smoking pack-years: 20.00 Tobacco: How many years used: 40 Quit status: not considering quitting Smoking risk assessment performed?: Yes Alcohol Intake: current Alcohol Intake frequency: 0-2 drinks per day Alcohol type: beer Drug use: Never Substance use type: does not use Counseling given: No Adopted: No Caregiver/Support person: No Foster care: Yes Household members: spouse Housing: house Number of Children: 1 number of grandchildren: 9 Communication Needs: None Education Level: high school Do you need help understanding health information?: Rarely current occupation: Disabled Pets and animals: Yes Pets and animals: cat(s) and dog(s) Sexually active: Yes Do you think of yourself as: straight/heterosexual Current gender identity: female What is your relationship status?: How often do you talk on the phone with friends or family?: once per week How often do you get together with friends or relatives?: once per week Do you belong to any clubs or organized social groups?: no Panel score (0-1 are the most socially isolated patients): 1 Duration: < 15 minutes/day Frequency: 1-2 times per week Bhavna/Bahai: [employer] Special bhavna needs: No Seatbelt use: never Helmet use: No Drive intox or ride w/intox pick up truck 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
--- NOTE | 2025-07-24 14:56 | HPE_ITS ---
Date of service: 07/24/25 Time of Service: 14:57 Assessment and Plan Assessment and plan (1) Pancreatitis: Status: Chronic Assessment and plan: As per HPI Low-fat diet, n.p.o. at midnight IV fluid As needed IV hydromorphone for pain Plan to call [facility] in the a.m. for time for ERCP?at this time patient will need grade 1 cholangitis as per [place] guidelines with CRP now at 2.6, jaundice, dilated bile duct at 12 mm, T. bili at 3.0 and elevated transaminase; this should expedite ERCP as per discussion with Dr. Glasgow from [facility] reported by ED provider Discussed with option of Zepbound with primary care practitioner (2) Choledocholithiasis: Status: Acute Assessment and plan: CBD?12 mm no stone seen in gallbladder but most likely stone is obstructing CBD; patient may have ERCP as above (3) Severe obstructive sleep apnea in adult: Status: Chronic (4) Mechanical low back pain: Status: Acute Assessment and plan: Continue Flexeril as per home management (5) Morbid obesity with BMI of 60.0-69.9, adult: Status: Chronic Assessment and plan: Patient on Zepbound at home; this will have to be reviewed with outpatient provider. Consider nutrition consult versus outpatient nutrition referral (6) CKD (chronic kidney disease) stage 2, GFR 60-89 ml/min: Status: Acute Assessment and plan: At this time no exacerbation will continue to monitor (7) GERD (gastroesophageal reflux disease): Status: Chronic Assessment and plan: On oral PPI at home; will use IV PPI at this time (8) Hypertension: Status: Chronic Assessment and plan: Continue home medicine regimen (9) Depression: Status: Chronic Assessment and plan: Continue home medicine regimen (10) On deep vein thrombosis (DVT) prophylaxis: Status: Acute Assessment and plan: Low molecular weight heparin indicated at this time due to ERCP planned for 07/25/2025; Teds Discussed with (11) Discharge planning issues: Status: Acute History of Present Illness Narrative: 55 yo female patient with a past medical history of morbid obesity on Zepbound, asthma presented to the with to the ED for evaluation of abdominal pain starting on July 05, 2025, subsided then worsened in the past 5 days. Patient denied headache, chills, fever, dizziness, chest pain, dysuria, nausea, vomiting, or diarrhea but reporting constipation which resolved on 09/22/2024 without hematochezia or melena. Patient reports feeling symptomatically dry but no decrease in oral fluid intake. Workup in the ED was positive for transaminitis, total bilirubin at 2.0, elevated lipase at 494, amylase at 165, LDL 146.7 , cholesterol 262. EKG showed no signs of coronary occlusion with negative troponin. Blood tomorrow was otherwise without actionable findings. Limited abdominal ultrasound showed hepatomegaly at 20 cm in length and CBD dilation at 12 mm; no stones seen in the bile duct and no intrahepatic biliary ductal dilation. Blood work was without actionable findings except for transaminitis with elevated alk phos, lipase and total bilirubin. In the ED the patient was treated with IV fluid, IV morphine, and antiemetic. The ED provider spoke to Dr. Palm [facility] recommendation to admit the patient overnight with n.p.o. after midnight, IV fluid and to hold DVT prophylaxis. GI [facility] call in the morning to establish time for ERCP; and depending on patient repeat labs cholangitis, the procedure would be expedited. I did CRP at 2.6. The patient confirmed full CODE STATUS Review of Systems All systems reviewed & are unremarkable except as noted in HPI and below PFSH All Active Problems (Updated 07/24/25 @ 18:39 by Bonnie Mejia APRN) Discharge planning issues (Acute) On deep vein thrombosis (DVT) prophylaxis (Acute) Pancreatitis (Chronic) Choledocholithiasis (Acute) Upper abdominal discomfort (Acute) Severe obstructive sleep apnea in adult (Chronic) CPAP Lumbar radiculitis (Acute) Posterior left knee pain (Acute ~01/2025) Mechanical low back pain (Acute) Herniation of cervical intervertebral disc with radiculopathy (Acute ~06/2024) 06/[facility] and F/U MRI recommended Degenerative lumbar spinal stenosis (Chronic ~2020) MRI 05/2024 & 2020 (progressing) Hernia, ventral (Acute) [facility]-06/13/23 06-26-23: [facility] outpatient CT abdomen w/o contrast. Impression: no acute findings in the abdomen on noncontrast scanning. Small fat containing paraumbilical ventral abdominal wall hernia. Prediabetes (Acute ~04/2023) New DX 04/2023 Chronic back pain (Acute ~08/2021) MRI 2020 [facility] Nicotine use disorder (Chronic) 35 pack year Morbid obesity with BMI of 60.0-69.9, adult (Chronic) Asthma (Chronic) H/O Pulm (Jedlovsky) Allergic & environmentally triggered; uses Symbicort PRN, duonebs PRN. 02/2022 Spirometry--NORMAL Hypercholesterolemia (Chronic ~02/2022) Gait disturbance (Chronic) R/T R ankle; has cane CKD (chronic kidney disease) stage 2, GFR 60-89 ml/min (Acute ~2011) Glaucoma (Chronic) [facility] Migraines (Chronic) Infrequent--lifestyle managed (sleep &/or Naproxen) Osteoarthritis (Chronic) Insomnia (Chronic) L-T zolpidem (2021: dose reduction successful; med discontinuation unsuccessful) Trazodone increase 02/16/23 from 100 to 200mg HS Anxiety (Chronic) GERD (gastroesophageal reflux disease) (Chronic) Hypertension (Chronic) Depression (Chronic) Medical History (Updated 07/24/25 @ 18:39 by Bonnie Mejia APRN) Elevated BP without diagnosis of hypertension Elevated serum creatinine Epigastric pain [facility] 06/13/23 Bronchospasm Surgical History History of ankle surgery (~2007) Plates Bone spur of right ankle (~2006) Surgically removed H/O ankle fusion (~2008) [facility] Family History Father , murdered Anxiety Alcohol use disorder Mother Anxiety Asthma Hypertension Social History Smoking/Tobacco Use Status: Current-Occasional Tobacco Type: cigarettes Smoking packs per day: 0.5 Smoking cigarettes per day: 10.0 Years smoked: 40 Smoking pack-years: 20.00 Tobacco: How many years used: 40 Quit status: not considering quitting Smoking risk assessment performed?: Yes Alcohol Intake: current Alcohol Intake frequency: 0-2 drinks per day Alcohol type: beer Drug use: Never Substance use type: does not use Counseling given: No Adopted: No Caregiver/Support person: No Foster care: Yes Household members: spouse Housing: house Number of Children: 1 number of grandchildren: 9 Communication Needs: None Education Level: high school Do you need help understanding health information?: Rarely current occupation: Disabled Pets and animals: Yes Pets and animals: cat(s) and dog(s) Sexually active: Yes Do you think of yourself as: straight/heterosexual Current gender identity: female What is your relationship status?: How often do you talk on the phone with friends or family?: once per week How often do you get together with friends or relatives?: once per week Do you belong to any clubs or organized social groups?: no Panel score (0-1 are the most socially isolated patients): 1 Duration: < 15 minutes/day Frequency: 1-2 times per week Bhavna/Judaism: Episcopalian Special bhavna needs: No Seatbelt use: never Helmet use: No Drive intox or ride w/intox 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 Meds Allergies and Home Medications Allergies Allergy/AdvReac Type Severity Reaction Status Date / Time latanoprost (From [facility]) Allergy Severe eye bleed, Verified 07/22/25 08:39 blurry visioin metoprolol Allergy Severe Anaphylaxis Verified 07/22/25 08:39 [facility]udil ([facility] Allergy Severe eye bleed, Verified 07/22/25 08:39 blurry visioin tramadol Allergy Intermediate vomiting Verified 07/22/25 08:39 Latex, Natural Rubber Allergy irritation, Verified 07/22/25 08:39 swelling sulfamethoxazole (From [facility] Intermediate vomiting Verified 07/22/25 08:39 Bactrim) trimethoprim (From Bactrim) AdvReac Intermediate vomiting Verified 07/22/25 08:39 Home Medications ?Medication ?Instructions ?Recorded ?Confirmed ?Type diphenhydramine HCl 25 mg capsule 25 mg PO .QD PRN 07/24/25 History (Benadryl) cholecalciferol (vitamin D3) 25 5,000 unit PO DAILY 07/24/25 History mcg (1,000 unit) capsule latanoprost 0.005 % eye drops 1 drp ophthalmic (eye) Q PM 04/19/23 07/24/25 History Ventolin HFA 90 mcg/actuation See Rx Instructions .Rou te 06/22/24 07/24/25 Rx aerosol inhaler (albuterol sulfate) .COMPLEX #18 grams budesonide-formoterol HFA 160 2 puff inhalation BID TX N 08/26/24 07/24/25 Rx mcg-4.5 mcg/actuation aerosol allergic/environmental a sthma #3 inhaler (Symbicort) units ipratropium 0.5 mg-albuterol 3 mg 3 ml inhalation QID PRN shortness 08/26/24 07/24/25 Rx (2.5 mg base)/3 mL nebulization of breath or wheezing #90 mL soln loratadine 10 mg tablet (Allergy See Rx Instructions . Route 09/23/24 07/24/25 Rx Relief (loratadine)) .COMPLEX #90 tabs zolpidem 5 mg tablet 5 mg PO QHS PRN sleep #30 ta bs 01/16/25 07/24/25 Rx B/L knee-high compression socks #1 ea 02/20/25 5 Rx mupirocin 2 % topical ointment See Rx Instructions .Ro delmy 02/20/25 07/24/25 Rx .COMPLEX #22 grams trazodone 100 mg tablet See Rx Instructions .Route 0 02/20/25 07/24/25 Rx .COMPLEX #270 tabs docusate sodium 100 mg capsule 100 mg PO DAILY PRN sto ol softener 05/14/25 07/24/25 Rx #90 caps cyclobenzaprine 10 mg tablet See Rx Instructions .Rout e 05/15/25 07/24/25 Rx .COMPLEX #60 tabs losartan 100 mg tablet See Rx Instructions .Route 0 05/29/25 07/24/25 Rx .COMPLEX #90 tabs montelukast 10 mg tablet See Rx Instructions .Route 1 07/24/25 Rx .COMPLEX #90 tabs tirzepatide (weight loss) 7.5 7.5 mg (0.5 mL) subcut Q WEEK #2 mL 06/09/25 07/24/25 Rx mg/0.5 mL subcutaneous pen injector (Zepbound) amlodipine 5 mg tablet See Rx Instructions .Route 1 07/24/25 Rx .COMPLEX #120 tabs omeprazole 40 mg capsule,delayed See Rx Instructions . Route 07/09/25 07/24/25 Rx release .COMPLEX #90 caps Exam Narrative Exam Narrative: 55 years old morbidly obese female patient looking older than stated age in no acute distress, icteric sclera minimally injected, no focal neurological deficit, and oriented x 4, unlabored breathing and clear breath sounds to auscultation, S1-S2 2 regular no murmur negative x 4 no edema to lower extremities, abdomen is large, nondistended, soft, positive epigastric tenderness and positive Lema's sign, no CVA tenderness Results Labs 07/24/25 12:03 Labs: Laboratory Results - last 24 hr 07/24/25 12:03 WBC 8.63 RBC 5.06 Hgb 13.7 Hct 43.1 MCV 85 MCH 27.1 MCHC 31.8 L RDW 15.8 H Plt Count 301 MPV 9.4 Immature Gran % 0.7 Neutrophils % 80.9 Lymphocytes % 9.6 Monocytes % 5.2 Eosinophils % 2.9 Basophils % 0.7 Nucleated RBC % 0.0 Absolute Neutrophils 6.98 H Absolute Lymphocytes 0.83 L Absolute Monocytes 0.45 Absolute Eosinophils 0.25 Absolute Basophils 0.06 Last Vital Signs Temp 36.9 C 07/24/25 11:20 Pulse 93 H 07/24/25 11:20 Resp 16 07/24/25 11:20 BP 157/80 H 07/24/25 11:20 Pulse Ox 98 07/24/25 11:20 Time Spent Time spent with Patient: >75 minutes Time was spent: preparing to see the patient(eg.review tests), obtaining and/or reviewing separately otained hiistory, ordering medications,tests, procedures, referring, communicating with other health care aide, indepentently interpreting results, counseling the patient, care coordination and other
[2025-07-24] MEDS: MORPHine 10 MG/ML VIAL 6 MG IVP (16:08)
[2025-07-24 16:10] VITALS: BP 151/74; PULSE 83; RESP 16; O2SAT 96
[2025-07-24 16:39] LABS: C-Reactive Protein 2.62 mg/dL (<=0.50)
--- NOTE | 2025-07-24 16:40 | NUR.NOTE ---
Nursing Note: pt denied pain medication prior to eating, after eating pain increased to 7/10 morphione given as ordered pain at 3/10 at this time
--- NOTE | 2025-07-24 16:42 | W.PC.ACHO ---
Registration Status: REG ER Primary Language: Preferred Language: ED Information & Data Chief Complaint Abd Prob 07/24/25 16:35 Chief Complaint Abd Prob 07/24/25 15:01 Triage Note pt followed by pulmonology 07/24/25 11:20 and they did labs, D Dimer elevated, liver enzymes elevated, lipase elevated and other concerns, so they sent her here. ABD pain and back pain reported by pt. Medical / Surgical History (Last Updated 05/14/25 @ 11:39 by Faye Martinez NP) Elevated BP without diagnosis of hypertension Elevated serum creatinine Epigastric pain Bronchospasm (Last Reviewed 05/14/25 @ 11:32 by Faye Martinez NP) History of ankle surgery (~2007) Bone spur of right ankle (~2006) H/O ankle fusion (~2008) Most Recent Vital Signs Temperature 36.9 C 07/24/25 11:20 Pulse 83 07/24/25 16:10 Respiratory Rate 16 07/24/25 16:10 Blood Pressure 151/74 H 07/24/25 16:10 Blood Pressure Mean 99 07/24/25 16:10 Pulse Oximetry 96 07/24/25 16:10 Oxygen Delivery Method Room Air 07/24/25 16:10 Oxygen Flow Rate 0 07/24/25 16:10 Pain Level 3 07/24/25 16:39 Allergies latanoprost (From [facility]) Allergy (Severe, Verified 07/22/25 08:39) eye bleed, blurry visioin metoprolol Allergy (Severe, Verified 07/22/25 08:39) Anaphylaxis desaturates to 87%, stops breathing. succinate formula netarsudil (From [facility]) Allergy (Severe, Verified 07/22/25 08:39) eye bleed, blurry visioin tramadol Allergy (Intermediate, Verified 07/22/25 08:39) vomiting Latex, Natural Rubber Allergy (Verified 07/22/25 08:39) irritation, swelling sulfamethoxazole (From Bactrim) Adverse Reaction (Intermediate, Verified 07/22/25 08:39) vomiting trimethoprim (From Bactrim) Adverse Reaction (Intermediate, Verified 07/22/25 08:39) vomiting Precautions Isolation Standard precaution 07/24/25 16:35 IV IV Catheter Type [Left Saline Lock Antecubital] IV Catheter Gauge [Left 18 Antecubital] Diagnostics 07/24/25 07/24/25 Range/Units 16:19 12:03 WBC 8.63 (4.4-10.8) 10^3/uL RBC 5.06 (3.93-5.22) 10^6/uL Hgb 13.7 (11.2-15.7) g/dL Hct 43.1 (36.0-46.0) % MCV 85 (80-95) fL MCH 27.1 (27.0-33.0) pg MCHC 31.8 L (32.0-36.0) % RDW 15.8 H (11.7-14.6) % Plt Count 301 (130-400) 10^3/uL MPV 9.4 (8.0-11.0) fL Immature Gran % 0.7 % Neutrophils % 80.9 % Lymphocytes % 9.6 % Monocytes % 5.2 % Eosinophils % 2.9 % Basophils % 0.7 % Nucleated RBC % 0.0 (0.0-0.3) % Absolute Neutrophils 6.98 H (1.2-6.7) 10^3/uL Absolute Lymphocytes 0.83 L (1.2-3.4) 10^3/uL Absolute Monocytes 0.45 (0.1-0.8) 10^3/uL Absolute Eosinophils 0.25 (0.0-0.7) 10^3/uL Absolute Basophils 0.06 (0.0-0.2) 10^3/uL Troponin I Pending C-Reactive Protein 2.62 H (<=0.50) mg/dL Intake and Output - 24 Hour Total 07/24/25 11:15 thru 07/24/25 14:59 Intake Total 10 Balance 10 Weight 186.426 kg Intake: IV 10 Falls Risk Assessment History of Falls No History 07/24/25 16:35 Fall Total Score 0 07/24/25 16:35 Level of Risk Standard/Low Risk 07/24/25 16:35 Attestation Statement: By documenting the first initial, last name, and credentials of the reporting nurse below, both parties acknowledge that all relevant information regarding the patient handoff has been communicated, and that all questions have been addressed to ensure continuity and safety of care. Additional Patient Information/Comments: c/o abdominal pain. not feeling well for last couple weeks, getting worse. US today completed - needs ERCP. [facility] tomorrow. Did not want pain meds prior to eating (ate about an hour ago), but needed it after. 7 to 3 at 6mg morphine. Denies nausea. Report Received From: Emma Katz RN
[2025-07-24 16:43] LABS: Troponin I < 3 ng/L (<35)
[2025-07-24 16:58] VITALS: BP 162/88; PULSE 95; RESP 16; TEMP 36.8; O2SAT 95
[2025-07-24] MEDS: Lactated Ringers 1,000 ML 100 ML IV (17:22)
[2025-07-24] MEDS: Normal Saline Flush 10 ML SYR (18:19)
[2025-07-24] MEDS: HYDROmorphone 2 MG/ML SYR 1 MG IVP ×2 (18:19→23:37)
[2025-07-24 19:26] VITALS: BP 132/66; PULSE 84; RESP 16; TEMP 36.1; O2SAT 93
[2025-07-24] MEDS: traZODone 100 MG TAB 200 MG PO (20:16)
[2025-07-24] MEDS: Zolpidem 5 MG TAB PO (20:16)
[2025-07-24 22:54] VITALS: BP 134/64; PULSE 83; RESP 16; TEMP 36.5; O2SAT 96
[2025-07-25 03:34] VITALS: BP 133/70; PULSE 84; RESP 16; TEMP 35.9; O2SAT 93
[2025-07-25] MEDS: Lactated Ringers 1,000 ML 100 ML IV (03:37)
[2025-07-25] MEDS: HYDROmorphone 2 MG/ML SYR 1 MG IVP (03:43)
[2025-07-25 06:17] LABS: Abs Immature Grans 0.04 10^3/uL (0.0-0.06); HCT 37.9 % (36.0-46.0); HGB 11.7 g/dL (11.2-15.7); Immature Grans % 0.6 %; MCH 26.4 pg (27.0-33.0); MCHC 30.9 % (32.0-36.0); MCV 86 fL (80-95); MPV 9.4 fL (8.0-11.0); Platelet Count 251 10^3/uL (130-400); RBC 4.43 10^6/uL (3.93-5.22); RDW 16.0 % (11.7-14.6); RDW-SD 50.1 fL; WBC 6.26 10^3/uL (4.4-10.8)
--- NOTE | 2025-07-25 06:37 | RESPIRATORY ---
RT spoke with patient regarding [facility]. Pt. reported that she had brand new CPAP machine that she wore it for 3 days, then returned it back to DME about 2 weeks ago due to intolerance. Pt. refuses to use hospital CPAP tonight, states she will be okay without CPAP. RT convinced pt. to let us know if she changes her mind to use hospital CPAP machine later.
[2025-07-25 06:42] LABS: ALT 351 U/L (10-49); AST 211 U/L (<34); Albumin 3.7 g/dL (3.4-5.0); Alkaline Phosphatase 427 U/L (46-116); Anion Gap 2.9 mmol/L (3-11); BUN 14 mg/dL (9-23); Bilirubin, Total 3.80 mg/dL (0.2-1.2); CO2 30.1 mmol/L (20.0-31.0); Calcium 8.7 mg/dL (8.3-10.6); Chloride 105 mmol/L (98-107); Glucose 104 mg/dL (74-106); Potassium 3.7 mmol/L (3.5-5.1); Sodium 138 mmol/L (136-145); Total Protein 6.5 g/dL (5.7-8.2)
[2025-07-25 06:44] LABS: Magnesium 1.7 mg/dL (1.6-2.6)
--- NOTE | 2025-07-25 06:56 | PGE_ITS ---
Date of Service Date of service: 07/25/25 Time of Service: 06:56 Assessment and Plan Assessment and plan (1) Pancreatitis: Status: Chronic Assessment and plan: As per HPI Low-fat diet, n.p.o. at midnight then resume as tolerated s/p ERCP Ongoing IV fluid - until able to tolerated enteral intake Scheduled acetaminophen Continue as needed IV hydromorphone for pain Reporting most likely drink 5-6 beers in one sitting weekly- RN reported increased frequency of binge drinking Discussed resumption of Zepbound with primary care practitioner Alcoholic VS gallstone etiology VS (2) Cholangitis: Status: Acute Assessment and plan: As above [facility]: Spoke with Dr. Kary Palm who was able to accept the patient for ERCP at 13:00 - then patient to return to [facility] Grade 1 cholangitis as per [place] guidelines with CRP trending up to 2.8, jaundice, LFT's >1.5 normal now at 2.6, jaundice, dilated bile duct at 12 mm, T. bilirubin trending up to 3.8, conjugated at 3.0, ongoing elevation in ALT, AST around 7X upper limit range Temperature: 35.9 and symptomatic, lactic 1.9 now 1.0 Blood cultures pending On Metronidazole 500 mg IV Q8H and Levofloxacin 750 mg IV Q24H Trend inflammatory markers , CMP, CBC [facility] this AM for ERCP (3) Choledocholithiasis: Status: Acute Assessment and plan: CBD?12 mm no stone seen in gallbladder but most likely stone is obstructing CBD; as above (4) Severe obstructive sleep apnea in adult: Status: Chronic Assessment and plan: New CPAP this month - has not used d/t GI pain Ongoing CPAP as per home settings as per PCP (5) Mechanical low back pain: Status: Acute Assessment and plan: Continue Flexeril as per home management (6) Morbid obesity with BMI of 60.0-69.9, adult: Status: Chronic Assessment and plan: Patient on Zepbound at home; this will have to be reviewed with outpatient prov ider as points1,2, 3 Obesity with ongoing pro-inflammatory state Consider nutrition consult versus outpatient nutrition referral (7) CKD (chronic kidney disease) stage 2, GFR 60-89 ml/min: Status: Acute Assessment and plan: At this time no exacerbation will continue to monitor (8) GERD (gastroesophageal reflux disease): Status: Chronic Assessment and plan: On oral PPI at home; will use IV PPI at this time (9) Hypertension: Status: Chronic Assessment and plan: Continue home medicine regimen (10) Depression: Status: Chronic Assessment and plan: Continue home medicine regimen (11) On deep vein thrombosis (DVT) prophylaxis: Status: Acute Assessment and plan: Low molecular weight heparin indicated at this time due to ERCP planned for 07/25/2025; Teds (12) Discharge planning issues: Status: Acute Assessment and plan: ERCP at [facility] this AM, case discussed with Dr. Kary Palm by ED provider on 07/24/25- [facility] to call this AM to be added to scheduled Discussed with Subjective Subjective Patient reports: still having pain, pain is less, voiding w/o difficulty (dark travis), no bowel movement (last 07/23), afebrile (reported feeling hot and cold on admission - now just hot and flushed overnight) and other (reporting drinking 5 to 6 beers - mostly weekly but not always); denies tolerating liquids well, tolerating a regular diet, blood in stool, nausea, vomiting or shortness of breath Exam Narrative Exam Narrative: 55-year-old female in no acute distress,Alert and oriented X4,unlabored breathing, lungs clear to auscultation, S1,S 2, distant regular rate rhythm. Abdomen is obese, soft , tenderness left upper quadrant margin and epigastrum; left liver margin limitrophe to lower epigastric area, positive barr's sign, no CVA tenderness, Objective Last Vital Signs Temp 35.9 C L 07/25/25 03:34 Pulse 84 07/25/25 03:34 Resp 16 07/25/25 03:34 BP 133/70 07/25/25 03:34 Pulse Ox 93 07/25/25 03:34 Laboratory Results - last 24 hr 07/24/25 07/24/25 07/25/25 12:03 16:19 06:05 WBC 8.63 6.26 RBC 5.06 4.43 Hgb 13.7 11.7 D Hct 43.1 37.9 MCV 85 86 MCH 27.1 26.4 L MCHC 31.8 L 30.9 L RDW 15.8 H 16.0 H Plt Count 301 251 MPV 9.4 9.4 Immature Gran % 0.7 0.6 Neutrophils % 80.9 72.3 Lymphocytes % 9.6 15.0 Monocytes % 5.2 7.5 Eosinophils % 2.9 4.0 Basophils % 0.7 0.6 Nucleated RBC % 0.0 0.0 Absolute Neutrophils 6.98 H 4.52 Absolute Lymphocytes 0.83 L 0.94 L Absolute Monocytes 0.45 0.47 Absolute Eosinophils 0.25 0.25 Absolute Basophils 0.06 0.04 Sodium 138 Potassium 3.7 Chloride 105 Carbon Dioxide 30.1 Anion Gap 2.9 L BUN 14 Creatinine 1.1 H Est GFR (CKD-EPI 2020) 51.90 Glucose 104 Calcium 8.7 Magnesium 1.7 Total Bilirubin 3.80 H AST 211 H ALT 351 H Alkaline Phosphatase 427 H Troponin I < 3 C-Reactive Protein 2.62 H Total Protein 6.5 Albumin 3.7 PAWSS Have you Been Recently Intoxicated or Drunk Within the Last 30 days?: No Have you Ever Experienced Previous Episodes of Alcohol Withdrawal?: No Have you ever Experienced Withdrawal Seizures?: No Have you ever Experienced Delirium Tremens(DT)s?: No Have you ever undergone Alcohol Rehabilitation Treatment (i.e, inpt ot outpatient treatment programs)?: No Have you ever Experienced Blackouts?: No Have you ever Combined Alcohol with other Downers within the last 90 days?: No Have you ever Combined Alcohol with any other Substance of Abuse during the last 90 days?: No Positive Blood Alcohol level on Presentation? [PCS.BAL]: No Evidence of Increased Autonomic Activity (i.e. HR>120, tremor, sweating, agitation, nausea)?: No Result: 0 Time Spent with Patient Time Spent with Patient: >50 minutes Time was spent: preparing to see the patient(eg.review tests), obtaining and/or reviewing separately otained hiistory, ordering medications,tests, procedures, referring, communicating with other health primary care sales representative, indepentently interpreting results, counseling the patient, care coordination and other
[2025-07-25 07:23] VITALS: BP 131/88; PULSE 91; RESP 18; TEMP 36; O2SAT 92
[2025-07-25 07:41] LABS: C-Reactive Protein 2.83 mg/dL (<=0.50)
[2025-07-25] MEDS: metroNIDAZOLE 500 MG/100 ML BAG 100 MG IVPB (07:48)
[2025-07-25] MEDS: HYDROmorphone 2 MG/ML SYR IVP ×2 (07:56→11:23)
--- NOTE | 2025-07-25 08:05 | INITIAL_ITS ---
Date of service: 07/25/25 Time of Service: 08:05 Care Management Initial Assmt Initial Assessment Reason for Hospitalization: pancreatitis and choledocholithiasis Functional Status/Living Situation Patient Presentation: Jamia presented to the ED yesterday afternoon with c/o abdominal pain for 5 days. She had outpatient labs ordered by her PCP, and they were abnormal, so she was told to present to the ED. Ultrasound showed common bile duct dilation. She will be going to [facility] for an ERCP - down and back- today. Jamia was sitting up in the bed when CM met with her this morning. She was very pleasant, but was definitely nervous about her procedure and just going to [facility] in general. She was very happy to know that she would be coming back to [facility] to recover after the procedure. Jamia stated that she is very happy with her life. She and her , Yuri, share 3 children and 11 grandchildren. One of her sons lives next door, and her 7 yo granddaughter visits nearly daily. The family is close knit. Her daughter lives in [place], but plans to be moving back to [place]. 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 Jamia is not really able to help with big chores, she has a lot of comorbidities that prevent her from being able to do so. She is on disability and a referral will be sent to [facility] for help with this. Jamia was also given their brochure. Jamia sees her PCP on a regular basis, and also see pulmonology. Jamia does not drive, and relies on her and children for transportation. Jamia does not feel that she will need homehealth services upon discharge, but would like to rethink this once she has her procedure. Town of Residence: [place] Resides with: Spouse (Yuri) Significant Other/Family: Local (3 children, 11 grandkids. ) Natural Supports: large group of friends and family Employment Status: Disabled Instrumental Activities of Daily Living (ADLs): Independent Medications Medication Management: No Issues/Barriers identified Advance Directives Advance Directives: Do you have an Advance Directive: N , 13:41 AD On File at [facility]: N 06/12/18, 14:51 Date Asked 07/24/25 07/24/25, 12:41 AD Date Reviewed COLST On File at [facility] COLST Date Scanned Code Status Resuscitation Status Full Code Portal Pt does not currently have a portal and education provided: Yes Insurance Coverage/Financial Issues Insurance: Medicare Part A & B Care Team Visit Care Team Role Provider Type Bonnie Mejia APRN MD [facility] STAFF PHYSICIAN Faye Martinez, JOANNA Primary Care Provider NURSE PRACTITIONER TYREE Worthy Emergency Provider PHYSICIANS MINERAL ENGINEER Nacho Wang MD Admit Provider [facility] STAFF PHYSICIAN Attending Provider Other: Gabbi Langley, pulmonology Discharge Potential Discharge Needs: PCP F/U Appt and Surgical F/U Appt Anticipated Barriers to Discharge: None Identified Patient/Family Education Needs: Review discharge instructions, discuss Ask Me Three Transportation: Private vehicle Plan: Jamia will be going to [facility] today for an ERCP, down and back procedure. She will discharge once medically stable and f/u with her PCP on 08/13, at a previ ously scheduled appointment,and with her surgeon and continue per her plan of care. She will likely not require HH services. Jamia will transport home in a private vehicle. CM will continue to follow. Social Determinants of Health Screening Social Determinants of health last assessed in clinic: 07/25/25 Will the Patient Participate in the Screening?: Yes Do you worry about having a steady place to live?: no Problems where you live: no known problems In the past 12 months, have you had to go without electric, gas, oil or water in your home?: yes 1. Within the past 12 months, we worried whether our food would run out before we got money to buy more.: Don't know/refused 2. Within the past 12 months, the food we bought just didn't last and we didn't have money to get more.: Don't know/refused Has lack of transportation kept you from medical appointments or from doing things needed for daily living?: no Has anyone in your life made you feel unsafe or unsupported?: no How hard is it for you to pay for the very basics like food, housing, medical care, and heating? Would you say it is:: Not hard at all Do you want help finding or keeping work or a job?: I do not need or want help If for any reason you need help with day-to-day activities such as bathing, preparing meals, shopping, managing finances, etc., do you get the help you need?: I get all the help I need How often do you feel lonely or isolated from those around you?: Never Do you speak a language other than Burkinan at home?: No Does the patient want assistance with any of the above?: No Comments: Lack of water due to drought. Health Related Social Needs Health related social needs: material hardship(utilities) (Z59.12) Health related social needs details: None identified by patient. PFSH All Active Problems (Updated 07/25/25 @ 06:57 by Bonnie Mejia APRN) Cholangitis (Acute) Discharge planning issues (Acute) On deep vein thrombosis (DVT) prophylaxis (Acute) Pancreatitis (Chronic) Choledocholithiasis (Acute) Upper abdominal discomfort (Acute) Severe obstructive sleep apnea in adult (Chronic) CPAP Lumbar radiculitis (Acute) Posterior left knee pain (Acute ~01/2025) Mechanical low back pain (Acute) Herniation of cervical intervertebral disc with radiculopathy (Acute ~06/2024) 06/18/24 [facility] - PT and F/U MRI recommended Degenerative lumbar spinal stenosis (Chronic ~2020) MRI 05/2024 & 2020 (progressing) Hernia, ventral (Acute) [facility] GI-06/13/23 06-26-23: [facility] outpatient CT abdomen w/o contrast. Impression: no acute findings in the abdomen on noncontrast scanning. Small fat containing paraumbilical ventral abdominal wall hernia. Prediabetes (Acute ~04/2023) New DX 04/2023 Chronic back pain (Acute ~08/2021) MRI 2020 [facility] Nicotine use disorder (Chronic) 35 pack year Morbid obesity with BMI of 60.0-69.9, adult (Chronic) Asthma (Chronic) H/O Pulm (Jedlovsky) Allergic & environmentally triggered; uses Symbicort PRN, duonebs PRN. 02/2022 Spirometry--NORMAL Hypercholesterolemia (Chronic ~02/2022) Gait disturbance (Chronic) R/T R ankle; has cane CKD (chronic kidney disease) stage 2, GFR 60-89 ml/min (Acute ~2011) Glaucoma (Chronic) [facility] Migraines (Chronic) Infrequent--lifestyle managed (sleep &/or Naproxen) Osteoarthritis (Chronic) Insomnia (Chronic) L-T zolpidem (2021: dose reduction successful; med discontinuation unsuccessful) Trazodone increase 02/16/23 from 100 to 200mg HS Anxiety (Chronic) GERD (gastroesophageal reflux disease) (Chronic) Hypertension (Chronic) Depression (Chronic) Medical History (Updated 07/25/25 @ 06:57 by Bonnie Mejia APRN) Elevated BP without diagnosis of hypertension Elevated serum creatinine Epigastric pain [facility] 06/13/23 Bronchospasm Surgical History History of ankle surgery (~2007) Plates Bone spur of right ankle (~2006) Surgically removed H/O ankle fusion (~2008) [facility] Family History Father , murdered Anxiety Alcohol use disorder Mother Anxiety Asthma Hypertension Social History Smoking/Tobacco Use Status: Current-Occasional Tobacco Type: cigarettes Smoking packs per day: 0.5 Smoking cigarettes per day: 10.0 Years smoked: 40 Smoking pack-years: 20.00 Tobacco: How many years used: 40 Quit status: not considering quitting Smoking risk assessment performed?: Yes Alcohol Intake: current Alcohol Intake frequency: 0-2 drinks per day Alcohol type: beer Drug use: Never Substance use type: does not use Counseling given: No Adopted: No Caregiver/Support person: No Foster care: Yes Household members: spouse Housing: house Number of Children: 1 number of grandchildren: 9 Communication Needs: None Education Level: high school Do you need help understanding health information?: Rarely current occupation: Disabled Pets and animals: Yes Pets and animals: cat(s) and dog(s) Sexually active: Yes Do you think of yourself as: straight/heterosexual Current gender identity: female What is your relationship status?: How often do you talk on the phone with friends or family?: once per week How often do you get together with friends or relatives?: once per week Do you belong to any clubs or organized social groups?: no Panel score (0-1 are the most socially isolated patients): 1 Duration: < 15 minutes/day Frequency: 1-2 times per week Bhavna/Presybeterian: Mandaeism Special bhavna needs: No Seatbelt use: never Helmet use: No Drive intox or ride w/intox milk pickup truck 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
[2025-07-25 08:24] LABS: INR 1.0 (0.9-1.1); Prothrombin Time 10.2 sec (9.1-11.1)
[2025-07-25 08:54] LABS: Lab Add On Test DONE
[2025-07-25 09:10] LABS: Bilirubin, Direct 3.0 mg/dL (<=0.3)
[2025-07-25] MEDS: levoFLOXacin 750 MG/150 ML BAG 100 MG IVPB (10:31)
--- NOTE | 2025-07-25 11:26 | PHACLINREV_ITS ---
Pharmacy Admission Review Admission Clinical Review Admission Pharmacy Review: Cholangitis (Acute) Discharge planning issues (Acute) On deep vein thrombosis (DVT) prophylaxis (Acute) Choledocholithiasis (Acute) Mechanical low back pain (Acute) CKD (chronic kidney disease) stage 2, GFR 60-89 ml/min (Acute ~2011) latanoprost (From Rocklatan) Allergy (Severe, Verified 07/22/25 08:39) eye bleed, blurry visioin metoprolol Allergy (Severe, Verified 07/22/25 08:39) Anaphylaxis netarsudil (From Rocklatan) Allergy (Severe, Verified 07/22/25 08:39) eye bleed, blurry visioin tramadol Allergy (Intermediate, Verified 07/22/25 08:39) vomiting Latex, Natural Rubber Allergy (Verified 07/22/25 08:39) irritation, swelling sulfamethoxazole (From Bactrim) Adverse Reaction (Intermediate, Verified 07/22/25 08:39) vomiting trimethoprim (From Bactrim) Adverse Reaction (Intermediate, Verified 07/22/25 08:39) vomiting Resuscitation Status Full Code Height 5 ft 5 in Weight 187.4 kg Comments Comments/Follow Ups: Going to [facility] today for ERCP procedure Pharmacy Admission Review Renal Dosing Renal Dosing: BUN 14 mg/dL (9-23) 07/25/25 06:05 Creatinine 1.1 mg/dL (0.55-1.02) H 07/25/25 06:05 Medications needing adjustments: Reviewed (CrCl 101.92 mL/min) List of meds needing interventions: Current medications are okay Anticoagulation Anticoagulation: Hgb 11.7 g/dL (11.2-15.7) D 07/25/25 06:05 Hct 37.9 % (36.0-46.0) 07/25/25 06:05 Plt Count 251 10^3/uL (130-400) 07/25/25 06:05 INR 1.0 (0.9-1.1) 07/25/25 07:55 Creatinine 1.1 mg/dL (0.55-1.02) H 07/25/25 06:05 DVT Prophylaxis: Reviewed (TEDs - procedure today) Opiate Usage Evaluate Pain Scale/Pains Meds: Reviewed (hydromorphone 2mg IVP q4h PRN - 7mg/24hrs) Scheduled Bowel Reg ordered if on Opiates?: No (PRN docusate/Miralax) Relevant Labs Relevant Labs: Sodium 138 mmol/L (136-145) 07/25/25 06:05 Potassium 3.7 mmol/L (3.5-5.1) 07/25/25 06:05 Chloride 105 mmol/L (98-107) 07/25/25 06:05 Magnesium 1.7 mg/dL (1.6-2.6) 07/25/25 06:05 C-Reactive Protein 2.83 mg/dL (<=0.50) H 07/25/25 06:05 Electrolytes, C-Reactive P, ESR: Reviewed (AST/ALT 211/351) Cardiac Review Cardiac Review: Troponin I < 3 ng/L (<35) 07/24/25 16:19 BP, HR, EF%: Reviewed (BP WNL, HR 91) List meds needing interventions: Has order for amlodipine 5mg daily and losartan 100mg daily. Also has order for amlodipine 5mg daily PRN - per home med list can take up to 10mg daily. QTc Review QTc: Reviewed (442 from 07/24/25) IV to PO Switch IV Medications: Reviewed (NPO - procedure today) Home Meds Home Med List reviewed: Reviewed Relevent Home Meds Not ordered & why?: diphenhydramine (PRN), Duoneb (PRN), loratadine (PRN), mupirocin ointment (PRN) and Zepbound (on hold per H+P) Current Meds Current Medication Order Review: Intervened Comments: Added IV order set Amlodipine order left pending by overnight pharmacy. Changed to 5mg daily and 5mg daily PRN orders based on home med list. Pharmacy Antibiotic Review Relevant Labs: Relevant Labs 07/25/25 07/24/25 06:05 16:19 C-Reactive Protein 2.83 H 2.62 H WBC 6.26 10^3/uL (4.4-10.8) 07/25/25 06:05 Temperature 36.0 C Temperature 35.9 C Pharmacy Antibiotic Activity: C/S review and Reviewed, no change Comments: Patient is on levofloxacin and metronidazole, day 1, for cholangitis. Blood cultures pending. Comments Comments/Follow Ups: Going to [facility] today for ERCP procedure
--- NOTE | 2025-07-25 11:58 | NUR.NOTE ---
Report given to Nidhi at , patient left unit at [id number], premedicated for transport per MD order. patient stable at time of transfer
[2025-07-25 17:38] VITALS: BP 177/91; PULSE 70; RESP 18; TEMP 36.2; O2SAT 94
[2025-07-25] MEDS: traZODone 100 MG TAB 200 MG PO (19:53)
[2025-07-25] MEDS: Ondansetron 4 MG/2 ML VIAL IVP (19:59)
[2025-07-25] MEDS: Zolpidem 5 MG TAB PO (20:00)
[2025-07-25] MEDS: Docusate Sodium 100 MG CAP PO (20:17)
[2025-07-25] MEDS: Polyethylene Glycol 3350 17 GM PACKET PO (20:17)
[2025-07-25] MEDS: Normal Saline Flush 10 ML SYR IVP (20:21)
[2025-07-25] MEDS: Omeprazole 20 MG CAPCR 40 MG PO (20:23)
[2025-07-25 20:26] VITALS: BP 161/87; PULSE 76; RESP 24; TEMP 37.8; O2SAT 91
[2025-07-25 23:58] VITALS: BP 137/82; PULSE 93; RESP 14; TEMP 37.5; O2SAT 90
[2025-07-26] MEDS: metroNIDAZOLE 500 MG/100 ML BAG 100 MG IVPB ×2 (02:14→09:38)
[2025-07-26] MEDS: levoFLOXacin 750 MG/150 ML BAG 100 MG IVPB (02:48)
[2025-07-26 02:57] VITALS: BP 127/64; PULSE 83; RESP 16; TEMP 36.3; O2SAT 91
[2025-07-26 04:59] VITALS: BP 143/85; PULSE 77; RESP 17; TEMP 36; O2SAT 90
[2025-07-26 07:03] VITALS: BP 135/88; PULSE 81; RESP 16; TEMP 36.7; O2SAT 95
[2025-07-26] MEDS: Omeprazole 20 MG CAPCR 40 MG PO (08:27)
[2025-07-26] MEDS: amLODIPine 5 MG TAB PO (08:28)
[2025-07-26] MEDS: Cholecalciferol (Vitamin D3) 1,000 UNIT TAB 5000 UNITS PO (08:28)
[2025-07-26] MEDS: Montelukast 10 MG TAB PO (08:29)
[2025-07-26] MEDS: Losartan 50 MG TAB 100 MG PO (08:29)
[2025-07-26] MEDS: Budesonide/Formoterol 160/4.5 6 GM 60 PUFF INH IH (08:47)
--- NOTE | 2025-07-26 10:52 | NUR.NOTE ---
Nursing Note: pt alert and oriented x4 pt denies pain pt tolerating her diet no nausea or vomiting pt up to the toliet with her walker and [facility] assist pt offered no complaints all cares rendered pt requesting a shower when her comes back to visit pt to be discharged to home today awaiting orders call pekin at [facility] maintained
--- NOTE | 2025-07-26 11:17 | W.PM.DS.N ---
Date of service: 07/26/25 Time of Service: 11:17 DS: Diagnosis Discharge Diagnosis (1) Pancreatitis: Status: Chronic (2) Cholangitis: Status: Acute (3) Choledocholithiasis: Status: Acute (4) Severe obstructive sleep apnea in adult: Status: Chronic (5) Mechanical low back pain: Status: Acute (6) Morbid obesity with BMI of 60.0-69.9, adult: Status: Chronic (7) CKD (chronic kidney disease) stage 2, GFR 60-89 ml/min: Status: Acute (8) GERD (gastroesophageal reflux disease): Status: Chronic (9) Hypertension: Status: Chronic (10) Depression: Status: Chronic (11) On deep vein thrombosis (DVT) prophylaxis: Status: Acute (12) Discharge planning issues: Status: Acute Discharge Plan Disposition Patient Disposition: Home Condition: Improving Discharge Details Reason For Visit: Choledocholithiasis,Transaminitis,Hyperbilirubilli Admit Date/Time: 07/24/25 15:22 Admit Provider: Nacho Wang Attending Provider: Nacho Wang Primary Care Provider: Faye Martinez Hospital Course Hospital Course: 55 yo female patient with a past medical history of morbid obesity on Zepbound,CKD II, glomerulonephritis in remission and seen by nephrology at [facility], weekly ETOH use, asthma presented to the with to the ED on 07/24/2025 for evaluation of abdominal pain starting on July 05, 2025, subsiding then worsening in the past 5 days prior to presentation. Workup in the ED was positive for transaminitis, total bilirubin at 2.0, elevated lipase at 494, amylase at 165, LDL 146.7 , cholesterol 262. Blood wotk in the ED was otherwise without actionable findings. Limited abdominal ultrasound showed hepatomegaly at 20 cm in length and CBD dilation at 12 mm; no stones seen in the bile duct and no intrahepatic biliary ductal dilation. IV fluid, IV morphine given in the ED. The ED provider spoke to Dr. Kary Palm [facility] with recommendation to admit the patient overnight with n.p.o. after midnight, IV fluid and to hold DVT prophylaxis and GI [facility] call in the morning to establish time for ERCP on 07/25/25; and depending on patient repeat labs and with cholangitis diagnosis , the procedure would be expedited. The patient was admitted to the medical surgical floor by the hospitalist services. Added CRP at 2.6. Overnight hypothermia at 35.9 and feeling flushed/ warmed reported. Cholangitis grade I met as per [place]'s guidelines and patient was started on IV metronidazole and Levofloxacin . ERCP completed on 07/25/2025 at [facility], no stone found deemed as most likely passed; sluged cleaned during procedure. Patient is able to tolerate oral intake, was afebrile and hemodynamically stable. The patient will be discharged home on oral antibiotics and will have a repeat CMP outpatient to be monitored by PCP. Discused with Dr. Wang Recommendations for Follow Up Recommended tests to be ordered by follow up provider: Monitor CMP , hepatomegaly Home Meds and New Rx's Prescriptions: New polyethylene glycol 3350 17 gram Powder In Packet 17 g PO DAILY Qty: 14 0RF docusate sodium [Colace] 100 mg Capsule 100 mg PO BID Qty: 14 0RF Rx Instructions: Stop if diarrhea develops metronidazole 500 mg tablet 500 mg PO Q8H Qty: 16 0RF levofloxacin 750 mg tablet 750 mg PO DAILY Qty: 5 0RF prochlorperazine maleate [Compazine] 5 mg tablet 5 mg PO TID PRNQty: 9 0RF Rx Instructions: PRN nausea Continued diphenhydramine HCl [Benadryl] 25 mg capsule 25 mg PO .QD PRN Patient Comments: allergies (DME) B/L knee-high compression socks See Rx Instructions .Route .MEDSUPPLY Qty: 1 0RF Rx Instructions: Venous insufficiency with b/l LE pitting edema, 10-15mmHg or 15-20mmHg zolpidem 5 mg tablet 5 mg PO QHS MDD 5mg PRN (Reason: sleep) Qty: 30 5RF docusate sodium 100 mg capsule 100 mg PO DAILY PRN (Reason: stool softener) Qty: 90 3RF Rx Instructions: For Zepbound cholecalciferol (vitamin D3) 25 mcg (1,000 unit) capsule 5,000 unit PO DAILY latanoprost 0.005 % drops 1 drp ophthalmic (eye) QPM Rx Instructions: 1 drop both eyes qhs-- budesonide-formoterol [Symbicort] 160-4.5 mcg/actuation HFA aerosol inhaler 2 puff inhalation BID PRN (Reason: allergic/environmental asthma) Qty: 3 3RF Rx Instructions: Uses PRN with triggered flares (lower dose ineffective) ipratropium-albuterol 0.5 mg-3 mg(2.5 mg base)/3 mL solution for nebulization 3 ml inhalation QID PRN (Reason: shortness of breath or wheezing) Qty: 90 3RF albuterol sulfate [Ventolin HFA] 90 mcg/actuation HFA aerosol inhaler See Rx Instructions .ROUTE .COMPLEX Qty: 18 10RF Dose Instruction: INHALE 2 PUFFS BY MOUTH EVERY 4 HOURS NEEDED FOR WHEEZING FOR SHORTNESS OF BREATH Rx Instructions: INHALE 2 PUFFS BY MOUTH EVERY 4 HOURS NEEDED FOR WHEEZING FOR SHORTNESS OF BREATH loratadine [Allergy Relief (loratadine)] 10 mg tablet See Rx Instructions .ROUTE .COMPLEX Qty: 90 3RF Dose Instruction: TAKE 1 TABLET BY MOUTH ONCE DAILY NEEDED FOR ALLERGIC SYMPTOMS Rx Instructions: TAKE 1 TABLET BY MOUTH ONCE DAILY NEEDED FOR ALLERGIC SYMPTOMS trazodone 100 mg tablet See Rx Instructions .ROUTE .COMPLEX Qty: 270 3RF Dose Instruction: TAKE 1 TO 3 TABLETS BY MOUTH AT BEDTIME NEEDED FOR SLEEP / FOR INSOMNIA - TAKE LOWEST EFFECTIVE DOSE Rx Instructions: TAKE 1 TO 3 TABLETS BY MOUTH AT BEDTIME NEEDED FOR SLEEP / FOR INSOMNIA - TAKE LOWEST EFFECTIVE DOSE mupirocin 2 % ointment See Rx Instructions .ROUTE .COMPLEX Qty: 22 1RF Dose Instruction: APPLY OINTMENT TOPICALLY TO AFFECTED AREA 2 TO 3 TIMES DAILY NEEDED FOR SKIN LESIONS/BOILS,APPLY THIN UNTIL LESION RESOLVED Rx Instructions: APPLY OINTMENT TOPICALLY TO AFFECTED AREA 2 TO 3 TIMES DAILY NEEDED FOR SKIN LESIONS/BOILS,APPLY THIN UNTIL LESION RESOLVED cyclobenzaprine 10 mg tablet See Rx Instructions .ROUTE .COMPLEX Qty: 60 0RF Dose Instruction: TAKE 1 TABLET BY MOUTH TWICE DAILY NEEDED FOR LUMBAR SPINE MUSCLE SPASM Rx Instructions: TAKE 1 TABLET BY MOUTH TWICE DAILY NEEDED FOR LUMBAR SPINE MUSCLE SPASM losartan 100 mg tablet See Rx Instructions .ROUTE .COMPLEX Qty: 90 3RF Dose Instruction: Take 1 tablet by mouth once daily Rx Instructions: Take 1 tablet by mouth once daily montelukast 10 mg tablet See Rx Instructions .ROUTE .COMPLEX Qty: 90 3RF Dose Instruction: TAKE 1 TABLET BY MOUTH ONCE DAILY FOR ASTHMA AND FOR ALLERGIES Rx Instructions: TAKE 1 TABLET BY MOUTH ONCE DAILY FOR ASTHMA AND FOR ALLERGIES amlodipine 5 mg tablet See Rx Instructions .ROUTE .COMPLEX Qty: 120 3RF Dose Instruction: TAKE 1 TABLET BY MOUTH ONCE DAILY FOR BLOOD PRESSURE MAY TAKE UP TO MAX 10MG DAILY Rx Instructions: TAKE 1 TABLET BY MOUTH ONCE DAILY FOR BLOOD PRESSURE MAY TAKE UP TO MAX 10MG DAILY omeprazole 40 mg capsule,delayed release(DR/EC) See Rx Instructions .ROUTE .COMPLEX Qty: 90 3RF Dose Instruction: Take 1 capsule by mouth once daily Rx Instructions: Take 1 capsule by mouth once daily Held Zepbound 7.5 mg/0.5 mL pen injector 7.5 mg subcut QWEEK Qty: 2 2RF Hold Instructions: Resume on 08/08/25. Discuss with PCP Discharge Instructions Stand Alone Forms: Portal Information, Nursing Discharge Form Referrals: Faye Martinez COLD ROLL OPERATOR [Primary Care Provider, Medicine] Referral Note: Follow-up with 7- 10 days of discharge Activity:: Activity as Tolerated Equipment/Supplies:: Walker Diet:: Low- fat heart healthy Discharge Orders Other Ambulatory Orders: Comprehensive Metabolic Panel (Routine) Timeframe: [id number] Facility: [facility] - Location: Laboratory Outpatient - [facility] Ordered By: Bonnie Mejia DS: Summary Time Spent with Patient providing and/or coordinating discharge services: Greater than 30 minutes Status at Discharge Functional status at discharge: uses cane/walker Overall status at discharge: patient is progressing back to baseline Mental Status: mental status grossly normal Speech and Movement: speech and movement normal Mood: congruent mood Affect: normal affect Quality:SDOH Health Related Social Needs: Health related social needs material hardship Health related social needs details None identified by patient. Health related social needs details: None identified by patient. Exam Narrative Exam Narrative: 55-year-old female in no acute distress,Alert and oriented X4,unlabored breathing, lungs clear to auscultation, S1,S 2, distant regular rate rhythm. Abdomen is obese, non-distended, soft , minimal tenderness left mid abd; no CVA tenderness, Psych Mental Status: mental status grossly normal Speech and Movement: speech and movement normal Mood: congruent mood Affect: normal affect DS: Data Vitals/I&O Vitals and I&O: Vital Signs Temperature 36.7 C 07/26/25 07:03 Temperature Source Temporal Artery Scan 07/26/25 07:03 Pulse 81 07/26/25 07:03 Respiratory Rate 16 07/26/25 07:03 Respiratory Effort Non-Labored 07/24/25 16:58 Respiratory Depth Normal 07/24/25 16:58 Respiratory Pattern Normal 07/24/25 16:58 Blood Pressure 135/88 07/26/25 07:03 Blood Pressure Mean 103 07/26/25 07:03 Pulse Oximetry 95 07/26/25 07:03 Oxygen Delivery Method Room Air 07/26/25 07:03 Oxygen Flow Rate 0 07/26/25 07:03 Pain Level 2 07/26/25 07:03 Comment rt 4 arm 07/25/25 23:58 Intake & Output 07/25/25 07/25/25 07/26/25 11:59 23:59 11:59 Intake Total 1130 / 2780 1650 / 2780 670 / 670 Output Total 800 / 800 550 / 550 Balance 330 / 1980 1650 / 1980 120 / 120 Weight 188.2 kg Intake: IV 1130 / 2300 1170 / 2300 370 / 370 Oral 480 / 480 300 / 300 Output: Urine 800 / 800 550 / 550 Other: Urine Color Dark Emma Yellow Yellow Dark Emma Urine Appearance Clear Urine Odor Strong Normal Comment Pt reports voiding to toilet independently, not collected Unmeasured unwitnessed Stool Size Moderate Data Completed and Pending Pending Labs at Discharge: 07/24/25 07/24/25 07/25/25 12:03 16:19 06:05 WBC 8.63 6.26 RBC 5.06 4.43 Hgb 13.7 11.7 D Hct 43.1 37.9 MCV 85 86 MCH 27.1 26.4 L MCHC 31.8 L 30.9 L RDW 15.8 H 16.0 H Plt Count 301 251 MPV 9.4 9.4 Immature Gran % 0.7 0.6 Neutrophils % 80.9 72.3 Lymphocytes % 9.6 15.0 Monocytes % 5.2 7.5 Eosinophils % 2.9 4.0 Basophils % 0.7 0.6 Nucleated RBC % 0.0 0.0 Absolute Neutrophils 6.98 H 4.52 Absolute Lymphocytes 0.83 L 0.94 L Absolute Monocytes 0.45 0.47 Absolute Eosinophils 0.25 0.25 Absolute Basophils 0.06 0.04 PT INR VBG Lactate Sodium 138 Potassium 3.7 Chloride 105 Carbon Dioxide 30.1 Anion Gap 2.9 L BUN 14 Creatinine 1.1 H Est GFR (CKD-EPI 2020) 51.90 Glucose 104 Calcium 8.7 Magnesium 1.7 Total Bilirubin 3.80 H Conjugated Bilirubin AST 211 H ALT 351 H Alkaline Phosphatase 427 H Troponin I < 3 C-Reactive Protein 2.62 H 2.83 H Total Protein 6.5 Albumin 3.7 Add-On Test Request 07/25/25 07/25/25 07/25/25 07:45 07:55 08:53 WBC RBC Hgb Hct MCV MCH MCHC RDW Plt Count MPV Immature Gran % Neutrophils % Lymphocytes % Monocytes % Eosinophils % Basophils % Nucleated RBC % Absolute Neutrophils Absolute Lymphocytes Absolute Monocytes Absolute Eosinophils Absolute Basophils PT 10.2 INR 1.0 VBG Lactate 1.1 Sodium Potassium Chloride Carbon Dioxide Anion Gap BUN Creatinine Est GFR (CKD-EPI 2020) Glucose Calcium Magnesium Total Bilirubin Conjugated Bilirubin 3.0 H AST ALT Alkaline Phosphatase Troponin I C-Reactive Protein Total Protein Albumin Add-On Test Request DONE 07/26/25 11:04 WBC RBC Hgb Hct MCV MCH MCHC RDW Plt Count MPV Immature Gran % Neutrophils % Lymphocytes % Monocytes % Eosinophils % Basophils % Nucleated RBC % Absolute Neutrophils Absolute Lymphocytes Absolute Monocytes Absolute Eosinophils Absolute Basophils PT INR VBG Lactate Sodium Pending Potassium Pending Chloride Pending Carbon Dioxide Pending Anion Gap Pending BUN Pending Creatinine Pending Est GFR (CKD-EPI 2020) Pending Glucose Pending Calcium Pending Magnesium Total Bilirubin Pending Conjugated Bilirubin AST Pending ALT Pending Alkaline Phosphatase Pending Troponin I C-Reactive Protein Total Protein Pending Albumin Pending Add-On Test Request Preliminary micro results at discharge 07/25/25 07:45 Blood Blood Culture - Preliminary NO GROWTH 24 HOURS 07/25/25 07:55 Blood Blood Culture - Preliminary NO GROWTH 24 HOURS PFSH All Active Problems (Updated 07/25/25 @ 06:57 by Bonnie Mejia APRN) Cholangitis (Acute) Discharge planning issues (Acute) On deep vein thrombosis (DVT) prophylaxis (Acute) Pancreatitis (Chronic) Choledocholithiasis (Acute) Upper abdominal discomfort (Acute) Severe obstructive sleep apnea in adult (Chronic) CPAP Lumbar radiculitis (Acute) Posterior left knee pain (Acute ~01/2025) Mechanical low back pain (Acute) Herniation of cervical intervertebral disc with radiculopathy (Acute ~06/2024) [facility] and F[facility]U MRI recommended Degenerative lumbar spinal stenosis (Chronic ~2020) MRI 05/2024 & 2020 (progressing) Hernia, ventral (Acute) [facility] GI-06/13/23 06-26-23: [facility] outpatient CT abdomen w/o contrast. Impression: no acute findings in the abdomen on noncontrast scanning. Small fat containing paraumbilical ventral abdominal wall hernia. Prediabetes (Acute ~04/2023) New DX 04/2023 Chronic back pain (Acute ~08/2021) MRI [facility] Nicotine use disorder (Chronic) 35 pack year Morbid obesity with BMI of 60.0-69.9, adult (Chronic) Asthma (Chronic) H/O Pulm (Jedlovsky) Allergic & environmentally triggered; uses Symbicort PRN, duonebs PRN. 02/2022 Spirometry--NORMAL Hypercholesterolemia (Chronic ~02/2022) Gait disturbance (Chronic) R/T R ankle; has cane CKD (chronic kidney disease) stage 2, GFR 60-89 ml/min (Acute ~2011) Glaucoma (Chronic) [facility]ometry Migraines (Chronic) Infrequent--lifestyle managed (sleep &/or Naproxen) Osteoarthritis (Chronic) Insomnia (Chronic) L-T zolpidem (2021: dose reduction successful; med discontinuation unsuccessful) Trazodone increase 02/16/23 from 100 to 200mg HS Anxiety (Chronic) GERD (gastroesophageal reflux disease) (Chronic) Hypertension (Chronic) Depression (Chronic) Medical History (Updated 07/25/25 @ 06:57 by Bonnie Mejia APRN) Elevated BP without diagnosis of hypertension Elevated serum creatinine Epigastric pain [facility] 06/13/23 Bronchospasm Surgical History History of ankle surgery (~2007) Plates Bone spur of right ankle (~2006) Surgically removed H/O ankle fusion (~2008) [facility] Family History Father , murdered Anxiety Alcohol use disorder Mother Anxiety Asthma Hypertension Social History Smoking/Tobacco Use Status: Current-Occasional Tobacco Type: cigarettes Smoking packs per day: 0.5 Smoking cigarettes per day: 10.0 Years smoked: 40 Smoking pack-years: 20.00 Tobacco: How many years used: 40 Quit status: not considering quitting Smoking risk assessment performed?: Yes Alcohol Intake: current Alcohol Intake frequency: 0-2 drinks per day Alcohol type: beer Drug use: Never Substance use type: does not use Counseling given: No Adopted: No Caregiver/Support person: No Foster care: Yes Household members: spouse Housing: house Number of Children: 1 number of grandchildren: 9 Communication Needs: None Education Level: high school Do you need help understanding health information?: Rarely current occupation: Disabled Pets and animals: Yes Pets and animals: cat(s) and dog(s) Sexually active: Yes Do you think of yourself as: straight/heterosexual Current gender identity: female What is your relationship status?: How often do you talk on the phone with friends or family?: once per week How often do you get together with friends or relatives?: once per week Do you belong to any clubs or organized social groups?: no Panel score (0-1 are the most socially isolated patients): 1 Duration: < 15 minutes/day Frequency: 1-2 times per week Bhavna/Pentecostalism: Bahai Special bhavna needs: No Seatbelt use: never Helmet use: No Drive intox or ride w/intox warehouse delivery 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 Time Spent with Patient Time Spent with Patient: >85 minutes Time was spent: preparing to see the patient(eg.review tests), obtaining and/or reviewing separately otained hiistory, ordering medications,tests, procedures, referring, communicating with other health hearing healthcare practitioner, indepentently interpreting results, counseling the patient, care coordination and other
[2025-07-26 11:19] VITALS: BP 131/69; PULSE 83; RESP 16; TEMP 36.7; O2SAT 95
[2025-07-26 11:42] LABS: ALT 352 U/L (10-49); AST 243 U/L (<34); Albumin 3.7 g/dL (3.4-5.0); Alkaline Phosphatase 404 U/L (46-116); Anion Gap 7.8 mmol/L (3-11); BUN 20 mg/dL (9-23); Bilirubin, Total 4.40 mg/dL (0.2-1.2); CO2 27.2 mmol/L (20.0-31.0); Calcium 9.1 mg/dL (8.3-10.6); Chloride 103 mmol/L (98-107); Glucose 135 mg/dL (74-106); Potassium 4.1 mmol/L (3.5-5.1); Sodium 138 mmol/L (136-145); Total Protein 6.6 g/dL (5.7-8.2)
--- NOTE | 2025-07-26 11:52 | PDOC.CMDIS ---
Date of service: 07/26/25 Time of Service: 11:52 LACE Index Scoring Tool Questions: Length of Stay (in days): 2 Was the patient admitted via the E.D.?: Yes Comorbidities: Liver or Renal Disease E.D. Visits: 1 Answers: Total Score: 11 Risk of Readmission: High Risk Care Management Discharge Plan Reason for Hospitalization: CKD Discharge Plan: Jamia is discharged home via private vehicle with family. Patient will follow up with community providers and continue per her discharge plan of care. No services are indicated at the time of discharge. Patient/Family Education Needs: Review discharge instructions and plan to follow up after discharge. Discuss ask me three. SDOH Health Related Social Needs: Health related social needs material hardship Health related social needs details None identified by patient. Health related social needs details: None identified by patient.
--- NOTE | 2025-07-26 13:01 | IN_ITS ---
PT Notes Visit Reasons: Choledocholithiasis,Transaminitis,Hyperbilirubilli Inpatient Physical Therapy Evaluation Date: 07/26/25 Referring Doctor: Bonnie Mejia NP PT Orders: PT CONSULT: safety consult for d/c Precautions: fall, standard Patient Profile/Admitting Diagnosis: Jamia is a 55 year old female referred for PT consultation in acute care setting, where she is being medically managed for pancreatitis, Cholangitis and Choledocholithiasis. PMH significant for Severe obstructive sleep apnea in adult; Mechanical low back pain; Morbid obesity with BMI of 60.0-69.9, adult; CKD (chronic kidney disease) stage 2; GERD (gastroesophageal reflux disease); Hypertension; Depression. Social History/Home Situation: Lives in a private home with her . Home has 3 JOSE, bilat rails, then single floor living. Does not drive. Reports that she uses a walker intermittently; struggles with chronic back pain and LE pain, and uses walker when she feels off balance. Able to ambulate throughout the home without difficulty. assists her on stairs. is present throughout PT session. Equipment Owned/DME: FWW, 4WW Subjective: Jamia states that she has been up to the bathroom with nursing, and although she feels more fatigued than usual, she does feel like she's walking at her baseline level. Objective: General Observation: Resting in bed without lines. Mental Status: A&Ox3. Pleasant and cooperative throughout. Pain: chronic LE pain ROM: Right Upper Extremity: Shoulder, elbow and wrist motion all WFL Left Upper Extremity: Shoulder, elbow and wrist motion all WFL Right Lower Extremity: Able to demonstrate hip flexion 90*, knee motion 0-90*. Ankle DF to 10*. Left Lower Extremity: Able to demonstrate hip flexion 90*, knee motion 0-90*. Ankle DF to 10*. Strength: Right Upper Extremity: Shoulder motions 3/5 or greater. Elbow motions 3/5 or greater. Left Upper Extremity: Shoulder motions 3/5 or greater. Elbow motions 3/5 or greater. Right Lower Extremity: Hip flexion 4+/5. Quads 5/5. Ankle DF 5/5. Left Lower Extremity: Hip flexion 4+/5. Quads 5/5. Ankle DF 5/5. Sensation: diminished sensation plantar aspect or right foot Bed Mobility/Transfers: supine-sit: independent sit-supine: independent scooting in bed: independent sit- stand: supervision stand-sit: supervision Gait: Ambulates 150' with FWW, SBA, without LOB or path deviation. Mild [place], and reports fatigue. Balance: Static Sitting: normal Dynamic Sitting: good Static Standing: good Dynamic Standing: fair Special Tests: Mobility Limitations Standardized Measure [facility] AM-PAC 6 clicks Basic Mobility Inpatient Short Form: Raw Score: 23 CMS Score: 11.2% impairment Informed Consent/Education: Patient instructed in purpose of PT consult and plan of care. Assessment: Patient is a 55 year old female referred to physical therapy services in acute care setting for safety evaluation for discharge planning. Patient demonstrates mobility at baseline level, although with some limitations in activity tolerance. She has multiple comorbidities impacting her mobility, and will benefit from resumption of HH PT upon return home to improve activity tolerance and mobility within the home. Does not require further PT intervention in acute care setting, as she is ambulating at her baseline level. She currently demonstrates the following impairment level findings: 1. decreased activity tolerance Impairments are contributing to the following functional limitations: 1. decreased activity tolerance Patient is assessed as Low 32598 complexity based on the following: History: As above Examination: as above. Ambulating at baseline level. Presentation: stable Decision Making: low Plan of Care/Treatment Plan: 1-2x/day, 7 days/week x 1 week. Plan of care has been reviewed with the DIRECTOR TRANSLATIONAL providing the service under Physical Therapy direction. Initiate Physical Therapy intervention for strengthening, bed mobility, transfers, gait, stairs, balance training, use of assistive device. DISCHARGE RECOMMENDATIONS: Home with PT TREATMENT CODE/TIME: 19469 ([id number]) Darleen Chandra, PT, DPT [facility] All Active Problems (Updated 07/25/25 @ 06:57 by Bonnie Mejia APRN) Cholangitis (Acute) Discharge planning issues (Acute) On deep vein thrombosis (DVT) prophylaxis (Acute) Pancreatitis (Chronic) Choledocholithiasis (Acute) Upper abdominal discomfort (Acute) Severe obstructive sleep apnea in adult (Chronic) CPAP Lumbar radiculitis (Acute) Posterior left knee pain (Acute ~01/2025) Mechanical low back pain (Acute) Herniation of cervical intervertebral disc with radiculopathy (Acute ~06/2024) 06/18/24 [facility] - PT and F/U MRI recommended Degenerative lumbar spinal stenosis (Chronic ~2020) MRI 05/2024 & 2020 (progressing) Hernia, ventral (Acute) [facility] GI-06/13/23 06-26-23: [facility] outpatient CT abdomen w/o contrast. Impression: no acute findings in the abdomen on noncontrast scanning. Small fat containing paraumb ilical ventral abdominal wall hernia. Prediabetes (Acute ~04/2023) New DX 04/2023 Chronic back pain (Acute ~08/2021) MRI 2020 [facility] Nicotine use disorder (Chronic) 35 pack year Morbid obesity with BMI of 60.0-69.9, adult (Chronic) Asthma (Chronic) H/O Pulm (Jedlovsky) Allergic & environmentally triggered; uses Symbicort PRN, duonebs PRN. 02/2022 Spirometry--NORMAL Hypercholesterolemia (Chronic ~02/2022) Gait disturbance (Chronic) R/T R ankle; has cane CKD (chronic kidney disease) stage 2, GFR 60-89 ml/min (Acute ~2011) Glaucoma (Chronic) [facility] Migraines (Chronic) Infrequent--lifestyle managed (sleep &/or Naproxen) Osteoarthritis (Chronic) Insomnia (Chronic) L-T zolpidem (2021: dose reduction successful; med discontinuation unsuccessful) Trazodone increase 02/16/23 from 100 to 200mg HS Anxiety (Chronic) GERD (gastroesophageal reflux disease) (Chronic) Hypertension (Chronic) Depression (Chronic) Medical History (Updated 07/25/25 @ 06:57 by Bonnie Mejia APRN) Elevated BP without diagnosis of hypertension Elevated serum creatinine Epigastric pain [facility] 06/13/23 Bronchospasm Surgical History History of ankle surgery (~2007) Plates Bone spur of right ankle (~2006) Surgically removed H/O ankle fusion (~2008) [facility]
[2025-07-26] MEDS: Naproxen 250 MG TAB PO (13:23)
== END 2025-07-26 15:25 | disposition home or self-care (01) | DRG 445 ==
LOC: ER 16:25 → MS 16:52
PROVIDERS: Admitting Provider Family Medicine; Emergency Provider Physician Assistant; PCP Nurse Practitioner Adult Health; Responsible Provider Nurse Practitioner Acute Care; Visit Provider Family Medicine
DX: G47.33 Obstructive sleep apnea (adult) (pediatric); N18.2 Chronic kidney disease, stage 2 (mild); Z79.899 Other long term (current) drug therapy; I12.9 Hypertensive chronic kidney disease with stage 1 through stage 4 chronic kidney disease, or unspecified chronic kidney disease; K21.9 Gastro-esophageal reflux disease without esophagitis; F32.A Depression, unspecified; E66.01 Morbid (severe) obesity due to excess calories; Z68.44 Body mass index [BMI] 60.0-69.9, adult; M54.16 Radiculopathy, lumbar region; K80.32 Calculus of bile duct with acute cholangitis without obstruction; K86.1 Other chronic pancreatitis; M48.061 Spinal stenosis, lumbar region without neurogenic claudication; R73.03 Prediabetes; G89.29 Other chronic pain; F17.210 Nicotine dependence, cigarettes, uncomplicated; J44.9 Chronic obstructive pulmonary disease, unspecified; E78.00 Pure hypercholesterolemia, unspecified; H40.9 Unspecified glaucoma; G47.00 Insomnia, unspecified; F41.9 Anxiety disorder, unspecified; J45.909 Unspecified asthma, uncomplicated; F10.90 Alcohol use, unspecified, uncomplicated; R68.0 Hypothermia, not associated with low environmental temperature
CPT/HCPCS: 00123; 36415; 80053; 80061; 83690; 87040; 93005; 94640; 96361; 96374; 97161; 99285; 76705; 82043; 82150; 82248; 82570; 83605; 83735; 84484; 85025; 85379; 85610; 86140; 93010; 94664; 99223; 99233; 99239; J1171; J1836; J1956; J2270; J2405

== ENCOUNTER 2025-08-07 08:55 | Inpatient (IN) | payer MEDICARE, SELFPAY ==
[2025-08-07] VITALS (7 sets, daily range): BP systolic 125–177; BP diastolic 86–115; PULSE 78–103; RESP 16–18; TEMP 36.2–36.6; O2SAT 96–99
--- NOTE | 2025-08-07 09:33 | W.ED.GENAD ---
Discharge Plan Disposition Patient Disposition: Admit to [facility] Condition: Stable Discharge Details Clinical Impression: Hyperbilirubinemia, Pancreatic mass Primary Care Provider: Faye Martinez ED Provider: Satish Crooks Home Meds and New Rx's Prescriptions: No Action diphenhydramine HCl [Benadryl] 25 mg capsule 25 mg PO .QD PRN Patient Comments: allergies (DME) B/L knee-high compression socks See Rx Instructions .Route .MEDSUPPLY Qty: 1 0RF Rx Instructions: Venous insufficiency with b/l LE pitting edema, 10-15mmHg or 15-20mmHg docusate sodium 100 mg capsule 100 mg PO DAILY PRN (Reason: stool softener) Qty: 90 3RF Rx Instructions: For Zepbound cholecalciferol (vitamin D3) 25 mcg (1,000 unit) capsule 5,000 unit PO DAILY latanoprost 0.005 % drops 1 drp ophthalmic (eye) QPM Rx Instructions: 1 drop both eyes qhs-- budesonide-formoterol [Symbicort] 160-4.5 mcg/actuation HFA aerosol inhaler 2 puff inhalation BID PRN (Reason: allergic/environmental asthma) Qty: 3 3RF Rx Instructions: Uses PRN with triggered flares (lower dose ineffective) ipratropium-albuterol 0.5 mg-3 mg(2.5 mg base)/3 mL solution for nebulization 3 ml inhalation QID PRN (Reason: shortness of breath or wheezing) Qty: 90 3RF zolpidem 5 mg tablet 5 mg PO QHS MDD 5mg PRN (Reason: sleep) Qty: 30 5RF hydromorphone 2 mg tablet 1 - 2 mg PO BID MDD 4mg PRN (Reason: SEVERE PAIN from cholangitis/pancreatitis) Qty: 10 0RF albuterol sulfate [Ventolin HFA] 90 mcg/actuation HFA aerosol inhaler See Rx Instructions .ROUTE .COMPLEX Qty: 18 10RF Dose Instruction: INHALE 2 PUFFS BY MOUTH EVERY 4 HOURS NEEDED FOR WHEEZING FOR SHORTNESS OF BREATH Rx Instructions: INHALE 2 PUFFS BY MOUTH EVERY 4 HOURS NEEDED FOR WHEEZING FOR SHORTNESS OF BREATH loratadine [Allergy Relief (loratadine)] 10 mg tablet See Rx Instructions .ROUTE .COMPLEX Qty: 90 3RF Dose Instruction: TAKE 1 TABLET BY MOUTH ONCE DAILY NEEDED FOR ALLERGIC SYMPTOMS Rx Instructions: TAKE 1 TABLET BY MOUTH ONCE DAILY NEEDED FOR ALLERGIC SYMPTOMS trazodone 100 mg tablet See Rx Instructions .ROUTE .COMPLEX Qty: 270 3RF Dose Instruction: TAKE 1 TO 3 TABLETS BY MOUTH AT BEDTIME NEEDED FOR SLEEP / FOR INSOMNIA - TAKE LOWEST EFFECTIVE DOSE Rx Instructions: TAKE 1 TO 3 TABLETS BY MOUTH AT BEDTIME NEEDED FOR SLEEP / FOR INSOMNIA - TAKE LOWEST EFFECTIVE DOSE mupirocin 2 % ointment See Rx Instructions .ROUTE .COMPLEX Qty: 22 1RF Dose Instruction: APPLY OINTMENT TOPICALLY TO AFFECTED AREA 2 TO 3 TIMES DAILY NEEDED FOR SKIN LESIONS/BOILS,APPLY THIN UNTIL LESION RESOLVED Rx Instructions: APPLY OINTMENT TOPICALLY TO AFFECTED AREA 2 TO 3 TIMES DAILY NEEDED FOR SKIN LESIONS/BOILS,APPLY THIN UNTIL LESION RESOLVED cyclobenzaprine 10 mg tablet See Rx Instructions .ROUTE .COMPLEX Qty: 60 0RF Dose Instruction: TAKE 1 TABLET BY MOUTH TWICE DAILY NEEDED FOR LUMBAR SPINE MUSCLE SPASM Rx Instructions: TAKE 1 TABLET BY MOUTH TWICE DAILY NEEDED FOR LUMBAR SPINE MUSCLE SPASM losartan 100 mg tablet See Rx Instructions .ROUTE .COMPLEX Qty: 90 3RF Dose Instruction: Take 1 tablet by mouth once daily Rx Instructions: Take 1 tablet by mouth once daily montelukast 10 mg tablet See Rx Instructions .ROUTE .COMPLEX Qty: 90 3RF Dose Instruction: TAKE 1 TABLET BY MOUTH ONCE DAILY FOR ASTHMA AND FOR ALLERGIES Rx Instructions: TAKE 1 TABLET BY MOUTH ONCE DAILY FOR ASTHMA AND FOR ALLERGIES amlodipine 5 mg tablet See Rx Instructions .ROUTE .COMPLEX Qty: 120 3RF Dose Instruction: TAKE 1 TABLET BY MOUTH ONCE DAILY FOR BLOOD PRESSURE MAY TAKE UP TO MAX 10MG DAILY Rx Instructions: TAKE 1 TABLET BY MOUTH ONCE DAILY FOR BLOOD PRESSURE MAY TAKE UP TO MAX 10MG DAILY omeprazole 40 mg capsule,delayed release(DR/EC) See Rx Instructions .ROUTE .COMPLEX Qty: 90 3RF Dose Instruction: Take 1 capsule by mouth once daily Rx Instructions: Take 1 capsule by mouth once daily polyethylene glycol 3350 17 gram Powder In Packet 17 g PO DAILY Qty: 14 0RF docusate sodium [Colace] 100 mg Capsule 100 mg PO BID Qty: 14 0RF Rx Instructions: Stop if diarrhea develops metronidazole 500 mg tablet 500 mg PO Q8H Qty: 16 0RF prochlorperazine maleate [Compazine] 5 mg tablet 5 mg PO TID PRNQty: 9 0RF Rx Instructions: PRN nausea HPI General Mode of arrival: ambulatory. Date/Time Provider Initiated Documentation: 08/07/25 08:57. Limitations to Documentation: no limitations. Information obtained by: patient. History of Present Illness 55 year old F presents to the emergency department with the chief complaint of upper abdominal discomfort, described as moderate, Quality is described as sharp, Patient started experiencing this week(s) (3) and it has been constant. No relieving factors improve symptom(s), No exacerbating factors reported . Patient notes denies chest pain, fever/chills, nausea/vomiting and shortness of breath. Patient did receive the following treatments prior to arrival, none Related Data Home Medications ?Medication ?Instructions ?Recorded ?Confirmed diphenhydramine HCl 25 mg capsule 25 mg PO .QD PRN 01/17/22 08/07/25 (Benadryl) cholecalciferol (vitamin D3) 25 5,000 unit PO DAILY 02/04/22 08/07/25 mcg (1,000 unit) capsule latanoprost 0.005 % eye drops 1 drp ophthalmic (eye) QPM 04/19/23 08/07/25 Ventolin HFA 90 mcg/actuation See Rx Instructions .Route 06/22/24 08/07/25 aerosol inhaler (albuterol sulfate) .COMPLEX #18 grams budesonide-formoterol HFA 160 2 puff inhalation BID PRN 08/26/24 08/07/25 mcg-4.5 mcg/actuation aerosol allergic/environmental asthma #3 inhaler (Symbicort) units ipratropium 0.5 mg-albuterol 3 mg 3 ml inhalation QID PRN shortness 08/26/24 08/07/25 (2.5 mg base)/3 mL nebulization of breath or wheezing #90 mL soln loratadine 10 mg tablet (Allergy See Rx Instructions .Route 09/23/24 08/07/25 Relief (loratadine)) .COMPLEX #90 tabs B/L knee-high compression socks #1 ea 02/20/25 08/07/25 mupirocin 2 % topical ointment See Rx Instructions .Route 02/20/25 08/07/25 .COMPLEX #22 grams trazodone 100 mg tablet See Rx Instructions .Route 02/20/25 08/07/25 .COMPLEX #270 tabs docusate sodium 100 mg capsule 100 mg PO DAILY PRN stool softener 05/14/25 08/07/25 #90 caps cyclobenzaprine 10 mg tablet See Rx Instructions .Route 05/15/25 08/07/25 .COMPLEX #60 tabs losartan 100 mg tablet See Rx Instructions .Route 05/29/25 08/07/25 .COMPLEX #90 tabs montelukast 10 mg tablet See Rx Instructions .Route 06/04/25 08/07/25 .COMPLEX #90 tabs amlodipine 5 mg tablet See Rx Instructions .Route 07/02/25 08/07/25 .COMPLEX #120 tabs omeprazole 40 mg capsule,delayed See Rx Instructions .Route 07/09/25 08/07/25 release .COMPLEX #90 caps docusate sodium 100 mg capsule 100 mg PO BID #14 caps 07/26/25 08/07/25 (Colace) metronidazole 500 mg tablet 500 mg PO Q8H #16 tabs 07/26/25 08/07/25 polyethylene glycol 3350 17 gram 17 g PO DAILY Constipation #14 ea 07/26/25 08/07/25 oral powder packet prochlorperazine maleate 5 mg 5 mg PO TID PRN #9 tabs 07/26/25 08/07/25 tablet (Compazine) hydromorphone 2 mg tablet 1 - 2 mg (0.5 - 1 x 2 mg) PO BID 07/28/25 08/07/25 PRN SEVERE PAIN from cholangitis/pancreatitis #10 tabs zolpidem 5 mg tablet 5 mg PO QHS PRN sleep #30 tabs 07/28/25 08/07/25 Previous Rx's ?Medication ?Instructions ?Recorded Ventolin HFA 90 mcg/actuation See Rx Instructions .Route 06/22/24 aerosol inhaler (albuterol sulfate) .COMPLEX #18 grams budesonide-formoterol HFA 160 2 puff inhalation BID PRN 08/26/24 mcg-4.5 mcg/actuation aerosol allergic/environmental asthma #3 inhaler (Symbicort) units ipratropium 0.5 mg-albuterol 3 mg 3 ml inhalation QID PRN shortness 08/26/24 (2.5 mg base)/3 mL nebulization of breath or wheezing #90 mL soln loratadine 10 mg tablet (Allergy See Rx Instructions .Route 09/23/24 Relief (loratadine)) .COMPLEX #90 tabs B/L knee-high compression socks #1 ea 02/20/25 mupirocin 2 % topical ointment See Rx Instructions .Route 02/20/25 .COMPLEX #22 grams trazodone 100 mg tablet See Rx Instructions .Route 02/20/25 .COMPLEX #270 tabs docusate sodium 100 mg capsule 100 mg PO DAILY PRN stool softener 05/14/25 #90 caps cyclobenzaprine 10 mg tablet See Rx Instructions .Route 05/15/25 .COMPLEX #60 tabs losartan 100 mg tablet See Rx Instructions .Route 05/29/25 .COMPLEX #90 tabs montelukast 10 mg tablet See Rx Instructions .Route 06/04/25 .COMPLEX #90 tabs amlodipine 5 mg tablet See Rx Instructions .Route 07/02/25 .COMPLEX #120 tabs omeprazole 40 mg capsule,delayed See Rx Instructions .Route 07/09/25 release .COMPLEX #90 caps docusate sodium 100 mg capsule 100 mg PO BID #14 caps 07/26/25 (Colace) metronidazole 500 mg tablet 500 mg PO Q8H #16 tabs 07/26/25 polyethylene glycol 3350 17 gram 17 g PO DAILY Constipation #14 ea 07/26/25 oral powder packet prochlorperazine maleate 5 mg 5 mg PO TID PRN #9 tabs 07/26/25 tablet (Compazine) hydromorphone 2 mg tablet 1 - 2 mg (0.5 - 1 x 2 mg) PO BID 07/28/25 PRN SEVERE PAIN from cholangitis/pancreatitis #10 tabs zolpidem 5 mg tablet 5 mg PO QHS PRN sleep #30 tabs 07/28/25 Allergies Allergy/AdvReac Type Severity Reaction Status Date / Time latanoprost (From [facility]) Allergy Severe eye bleed, Verified 08/07/25 09:09 blurry visioin metoprolol Allergy Severe Anaphylaxis Verified 08/07/25 09:09 netarsudil (From [facility]) Allergy Severe eye bleed, Verified 08/07/25 09:09 blurry visioin tramadol Allergy Intermediate vomiting Verified 08/07/25 09:09 Latex, Natural Rubber Allergy irritation, Verified 08/07/25 09:09 swelling tirzepatide AdvReac Severe Pancreatiti Verified 08/07/25 09:09 s sulfamethoxazole (From AdvReac Intermediate vomiting Verified 08/07/25 09:09 Bactrim) trimethoprim (From Bactrim) AdvReac Intermediate vomiting Verified 08/07/25 09:09 General Stated Complaint: Abd Prob AMADOR: 3 Review of Systems All systems reviewed & are unremarkable except as noted in HPI and below Constitutional Constitutional: Denies chills and Denies fever(s) Cardiovascular Cardiovascular: Denies chest pain and Denies dyspnea Respiratory Respiratory: Denies cough and Denies dyspnea Gastrointestinal Gastrointestinal: Reports abdominal pain, Denies nausea and Denies vomiting Integumentary/Breasts Skin/Breast: Reports jaundice Exam Const General: no acute distress Orientation: alert HENMT Head: normal to inspection Ears: external ears normal General nose exam: external nose normal Mouth: moist mucous membranes Resp Effort & Inspection: normal respiratory effort and able to speak in complete sentences Cardio Rate: regular rate GI Palpation: soft and tender Skin General skin exam: jaundice Neuro General: patient alert and patient oriented x3 Extrem General: normal to inspection Psych Mental Status: mental status grossly normal Course Vital Signs Vital signs: Vital Signs Temperature 36.4 C L 08/07/25 09:03 Pulse 80 08/07/25 09:03 Respiratory Rate 16 08/07/25 09:03 Blood Pressure 177/115 H 08/07/25 09:03 Pulse Oximetry 99 08/07/25 09:03 Temperature 36.4 C L 08/07/25 09:08 Temperature Source Oral 08/07/25 09:08 Pulse 80 08/07/25 09:08 Respiratory Rate 16 08/07/25 09:08 Blood Pressure 177/115 H 08/07/25 09:08 Blood Pressure Position Sitting 08/07/25 09:08 Pulse Oximetry 99 08/07/25 09:08 Oxygen Delivery Method Room Air 08/07/25 09:08 Oxygen Flow Rate 0 08/07/25 09:08 Pain Level 5 08/07/25 09:08 Medical Decision Making 55-year-old female who was admitted in July for cholangitis suspected due to impacted stone in the common bile duct and had an ERCP done which showed that the stone had passed and also had elevated lipase and jaundice at that time comes in with continued upper abdominal discomfort that is the same as when she left here and also continued jaundice. She denies any worsening of her pain, no fevers or chills, no vomiting. She does have jaundice of her skin and sclera, her abdomen does have tenderness in the right upper quadrant, there is no guarding. Given continued symptoms will check CBC CMP bilirubin lipase and a repeat ultrasound. pt's bilirubin and conjugated bili increased from prior, u/s shows gallstones and distended gallbladder. cbd not fully visualized but no visible calculi. Consulted general surgeon Viktor Rojas who recommended consulting with GI for potential possible repeat ERCP. Spoke with Dr. Haney reviewed the labs and ultrasound is not convinced that the patient needs an ERCP, they did request a CT to further evaluate the liver and also if possible MRCP. Patient CT shows a pancreatic mass, we consulted with GI at [facility] and they said that they will plan to do a down and back ERCP and ultrasound during the procedure tomorrow likely around 1:00. Will discuss with hospitalist for admission until that is done. I did order 1 dose of Zosyn initially for concern of possible recurrent cholangitis but after further testing and the pancreatic mass and discussion with GI they do not feel further antibiotics are indicated. Differential Diagnosis Differential Diagnosis: pancreatitis, cholangitis Quality:SDOH Health Related Social Needs: Health related social needs material hardship Health related social needs details None identified by patient. [facility] All Active Problems (Updated 08/07/25 @ 14:58 by Satish Crooks MD) Pancreatic mass (Acute) Hyperbilirubinemia (Acute) Cholangitis (Acute) Pancreatitis (Chronic) Choledocholithiasis (Acute) Upper abdominal discomfort (Acute) Severe obstructive sleep apnea in adult (Chronic) CPAP Lumbar radiculitis (Acute) Posterior left knee pain (Acute ~01/2025) Mechanical low back pain (Acute) Herniation of cervical intervertebral disc with radiculopathy (Acute ~06/2024) 06/18/24 [facility] - PT and F/U MRI recommended Degenerative lumbar spinal stenosis (Chronic ~2020) MRI 05/2024 & 2020 (progressing) Hernia, ventral (Acute) [facility] GI-06/13/23 06-26-23: [facility] outpatient CT abdomen w/o contrast. Impression: no acute findings in the abdomen on noncontrast scanning. Small fat containing paraumbilical ventral abdominal wall hernia. Prediabetes (Acute ~04/2023) New DX 04/2023 Chronic back pain (Acute ~08/2021) MRI 2020 [facility] Nicotine use disorder (Chronic) 35 pack year Morbid obesity with BMI of 60.0-69.9, adult (Chronic) Asthma (Chronic) H/O Pulm ([place]) Allergic & environmentally triggered; uses Symbicort PRN, duonebs PRN. 02/2022 Spirometry--NORMAL Hypercholesterolemia (Chronic ~02/2022) Gait disturbance (Chronic) R/T R ankle; has cane CKD (chronic kidney disease) stage 2, GFR 60-89 ml/min (Acute ~2011) Glaucoma (Chronic) [facility] Migraines (Chronic) Infrequent--lifestyle managed (sleep &/or Naproxen) Osteoarthritis (Chronic) Insomnia (Chronic) L-T zolpidem (2021: dose reduction successful; med discontinuation unsuccessful) Trazodone increase 02/16/23 from 100 to 200mg HS Anxiety (Chronic) GERD (gastroesophageal reflux disease) (Chronic) Hypertension (Chronic) Depression (Chronic) Medical History Elevated BP without diagnosis of hypertension Elevated serum creatinine Epigastric pain [facility]-GI 06/13/23 Bronchospasm Surgical History History of ankle surgery (~2007) Plates Bone spur of right ankle (~2006) Surgically removed H/O ankle fusion (~2008) [facility] Family History Father , murdered Anxiety Alcohol use disorder Mother Anxiety Asthma Hypertension Social History Smoking/Tobacco Use Status: Current-Occasional Tobacco Type: cigarettes Smoking packs per day: 0.5 Smoking cigarettes per day: 10.0 Years smoked: 40 Smoking pack-years: 20.00 Tobacco: How many years used: 40 Quit status: not considering quitting Smoking risk assessment performed?: Yes Alcohol Intake: current Alcohol Intake frequency: 0-2 drinks per day Alcohol type: beer Drug use: Never Substance use type: does not use Counseling given: No Adopted: No Caregiver/Support person: No Foster care: Yes Household members: spouse Housing: house Number of Children: 1 number of grandchildren: 9 Communication Needs: None Education Level: high school Do you need help understanding health information?: Rarely current occupation: Disabled Pets and animals: Yes Pets and animals: cat(s) and dog(s) Sexually active: Yes Do you think of yourself as: straight/heterosexual Current gender identity: female What is your relationship status?: How often do you talk on the phone with friends or family?: once per week How often do you get together with friends or relatives?: once per week Do you belong to any clubs or organized social groups?: no Panel score (0-1 are the most socially isolated patients): 1 Duration: < 15 minutes/day Frequency: 1-2 times per week Bhavna/Oriental Orthodox: Restorationist Special bhavna needs: No Seatbelt use: never Helmet use: No Drive intox or ride w/intox tanker 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 PAWSS Have you Been Recently Intoxicated or Drunk Within the Last 30 days?: No Have you Ever Experienced Previous Episodes of Alcohol Withdrawal?: No Have you ever Experienced Withdrawal Seizures?: No Have you ever Experienced Delirium Tremens(DT)s?: No Have you ever undergone Alcohol Rehabilitation Treatment (i.e, inpt ot outpatient treatment programs)?: No Have you ever Experienced Blackouts?: No Have you ever Combined Alcohol with other Downers within the last 90 days?: No Have you ever Combined Alcohol with any other Substance of Abuse during the last 90 days?: No Result: 0
--- NOTE | 2025-08-07 09:45 | DI.US_ITS ---
Exam(s) US ABDOMEN LIMITED EXAM: US ABDOMEN LIMITED CLINICAL HISTORY: ruq pain, jaundice TECHNIQUE: Ultrasound abdomen performed using standard protocol. COMPARISON: US US ABDOMEN LIMITED from 07/24/2025 FINDINGS: There is no ascites evident. LIVER: There are no hepatic lesions evident nor dilatation of intrahepatic ducts. Liver size is minimally prominent. GALLBLADDER/BILIARY: There are multiple small densities in the gallbladder on the dependent wall consistent with small gallstones. The gallbladder wall is not thickened or edematous and there is no pericholecystic fluid. Gallbladder is mildly distended. The common hepatic duct isdilated, measuring 15mm at the level of anjelica hepatis. No obvious calculus seen within the CBD. PANCREAS: There is no evidence of pancreatic mass nor dilatation of the pancreatic duct. RIGHT KIDNEY:No evidence of solid mass, calculus, nor hydronephrosis. No cortical cysts evident. IMPRESSION: 1. Cholelithiasis. There are multiple small gallstones on the dependent wall the gallbladder. Gallbladder is moderately distended not edematous. The CBD is dilated to 15 mm. No obvious calculi seen within the partially visualized CBD. 2. Recommend correlation with appropriate blood work and MRCP if clinically indicated. 3. There is no ascites. DATA REPOSITORY:
[2025-08-07 09:47] LABS: Abs Immature Grans 0.10 10^3/uL (0.0-0.06); HCT 43.7 % (36.0-46.0); HGB 13.8 g/dL (11.2-15.7); Immature Grans % 1.2 %; MCH 26.2 pg (27.0-33.0); MCHC 31.6 % (32.0-36.0); MCV 83 fL (80-95); MPV 10.2 fL (8.0-11.0); Platelet Count 328 10^3/uL (130-400); RBC 5.27 10^6/uL (3.93-5.22); RDW 17.2 % (11.7-14.6); RDW-SD 51.8 fL; WBC 8.52 10^3/uL (4.4-10.8)
[2025-08-07 10:04] LABS: Lipase 176 U/L (<53); Magnesium 1.7 mg/dL (1.6-2.6)
[2025-08-07 10:07] LABS: Bilirubin, Direct 9.9 mg/dL (<=0.3)
[2025-08-07 10:36] LABS: Glucose Negative (Negative)
[2025-08-07 10:42] LABS: ALT 228 U/L (10-49); AST 185 U/L (<34); Albumin 4.3 g/dL (3.2-5.0); Alkaline Phosphatase 368 U/L (46-116); Anion Gap 9.9 mmol/L (3-11); BUN 14 mg/dL (9-23); Bilirubin, Total 13.30 mg/dL (0.2-1.2); CO2 29.2 mmol/L (20.0-31.0); Calcium 10.4 mg/dL (8.3-10.6); Chloride 100 mmol/L (98-107); Glucose 168 mg/dL (74-106); Potassium 3.7 mmol/L (3.5-5.1); Sodium 139 mmol/L (136-145); Total Protein 8.0 g/dL (5.7-8.2)
[2025-08-07 10:49] LABS: RBC 0-2 HPF (0-2); WBC Negative HPF (0-5)
[2025-08-07 10:50] LABS: C & S Indicated? No
[2025-08-07 11:14] LABS: INR 1.1 (0.9-1.1); PTT Activated 29.2 sec (20.6-30.2); Prothrombin Time 11.4 sec (9.1-11.1)
[2025-08-07] MEDS: Normal Saline 1,000 ML 1000 ML IV (11:48)
[2025-08-07] MEDS: PIPERACILLIN/TAZO 4.5 GM in Normal Saline 100 ML IVPB (12:30)
--- NOTE | 2025-08-07 12:45 | DI.CT_ITS ---
Exam(s) CT ABDOMEN PELVIS W EXAM: CT ABDOMEN PELVIS W CLINICAL HISTORY: right upper abdomen pain, jaundice. TECHNIQUE: Imaging Protocol: Axial computed tomography images with coronal and sagittal reformatted images were created and reviewed CONTRAST MATERIAL: Intravenous: Omnipaque-350 100cc Oral: None COMPARISON: US US ABDOMEN LIMITED from 08/07/2025 FINDINGS: VISUALIZED LUNG BASES: No nodules nor pleural effusions evident. ABDOMEN: There is no ascites. LIVER: There are dilated ducts in both hepatic lobes. Subtle subcapsular hypodensity in the right hepatic lobe measuring 8 mm is noted. Another in the left hepatic lobe. GALLBLADDER/BILIARY: Gallbladder is moderately distended and filled with hyperdense fluid-bile. There are no calcified gallstones evident. The gallbladder wall is not edematous and there is no pericholecystic fluid. The CBD is mildly dilated, measuring 12 mm. PANCREAS: There is an abnormal hypodense mass in the uncinate process of the pancreas measuring approximately 4.5 x 3.5 x 3.2 cm. Pancreatic duct is not dilated but this is suspicious for pancreatic malignancy. There few slightly enlarged lymph nodes in this region. SPLEEN: There is splenomegaly. Craniocaudal measurement of the spleen is 15.8 cm. There are no intrasplenic lesions evident. Splenic vein is patent and portal vein is patent. There is some encasement of the mid aspect of the superior mesenteric artery. ADRENALS: There are no significant adrenal masses. KIDNEYS:No cysts. No solid renal masses. No calculi nor hydronephrosis.. ABDOMINAL AORTA: Abdominal aorta is not enlarged. LYMPH NODES:There is no retroperitoneal nor paraaortic adenopathy. ABDOMINAL WALL: No evidence of significant anterior abdominal wall nor inguinal hernia. GI: There is no evidence of bowel obstruction, free air, nor abscess. PELVIS: GI: No evidence of appendicitis.No evidence of sigmoid diverticulitis. LYMPH NODES: There is no intrapelvic nor inguinal adenopathy. REPRODUCTIVE: Uterus and adnexal regions appear unremarkable and there is no free fluid in the pelvis. URINARY BLADDER: No calculi nor obvious masses evident OSSEOUS: No fractures and no significant osseous lesions. IMPRESSION: 1. There is an ominous appearing hypodense mass having its epicenter in the uncinate process of the pancreas with what appears to be contiguous involvement of the duodenal wall in there does appear to be some abnormal tissue encasing the superior mesenteric artery a few cm distal to its origin. The superior mesenteric vein is not occluded. There is dilatation of biliary tree above this level, both intra and extrahepatic and the gallbladder is moderately distended. First consideration is for pancreatic adenocarcinoma. 2. There few small sub cm hypodensities in liver also noted which may be incidental hemangiomas but cannot exclude hepatic metastatic lesions. 3. Splenomegaly evident on him. The splenic vein is not thrombosed. There are no lesions evident within the spleen. There is no ascites Report called by myself to ER physician 08/07/2025 at 2 p.m. RADIATION DOSE DELIVERED: 1,723.67mGy.cm Total DLP DATA REPOSITORY: All CT scans at this facility are submitted to the National Radiology Data Registry (NRDR) Dose Index Registry (DIR) with the [employer] (ACR). RADIATION OPTIMIZATION: All CT scans at this facility use at least one of these dose optimization techniques: automated exposure control; mA and/or kV adjustment per patient size (includes targeted exams where dose is matched to clinical indication); or iterative reconstruction.
[2025-08-07] MEDS: Omnipaque 350 MG/ML 100 ML BTL IJ (13:15)
[2025-08-07] MEDS: Normal Saline - Diluent 50 ML VIAL IJ (13:16)
--- NOTE | 2025-08-07 15:55 | W.PM.HP.N ---
Date of service: 08/07/25 Time of Service: 15:55 Assessment and Plan Assessment and plan (1) Pancreatic mass: Status: Acute Assessment and plan: -CT abd/pel with 4.5 x 3.5 x 3.2 cm mass in pancreas with dilation of the biliary tree above this level; additional hypodensities in liver also noted with splenomegaly, concerning for pancreatic cancer with biliary obstruction -[place] with [place] [facility] around 1300) -Clears tonight, NPO at midnight with maintenance fluids -We discussed possibility of cancer and possible next step after diagnosis. -pain control with dilaudid PRN (2) GERD (gastroesophageal reflux disease): Status: Chronic Assessment and plan: -continue PPI (protonix IV) (3) Hyperbilirubinemia: Status: Acute Assessment and plan: -associated with likely biliary duct obstruction due to pancreatic mass. -T bili 13.3 with conjugated bili 9.9 today, will continue to monitor -she may need stenting, obviously [facility] to decide this (4) Hypertension: Status: Chronic Assessment and plan: -Continue home medicine regimen (amlodipine, losartan), hold ARB 12/5 AM pre-op, but resume after. I saw the patient and formulated plan as above with May Barahona SOFTWARE LICENSING EXECUTIVE. -Shay Girard MD Discharge Planning Discharge Planning: Home if improving after 08/08 ERCP, possibly 08/09 History of Present Illness History of Present Illness Chief Complaint: abdominal pain Narrative: Jamia is a 55 yo female patient with a past medical history of morbid obesity, glomerulonephritis in remission, asthma, GERD, HTN, and insomnia who presented to the emergency dept today for evaluation of progressively worsening RUQ/epigastric pain radiating to the back x 4 weeks. Pain is aggravated by eating, especially foods containing dairy. Reports pain first started after increasing her dose of Zepbound to 7.5 mg- initially started as intermittent pain but grew in intensity and frequency until it was constant. She had bloodwork performed outpatient ordered by her PCP on 07/24/25, she was noted to have elevated lipase/amylase (494 and 165) and LFTs (AST 241, ALT 426, Alk Phosp 493, and tot bili 3.0). She presented to ED that day for further evaluation diagnosed at that time with pancreatitis and cholangitis with dilated CBD on abdominal US. Tirzepatide had been discontinued. On 07/25/25, [place] [facility]; no stone was found, determined to have likely passed, sludge was cleaned during procedure. She was discharged on 07/26/25 with oral abx (metronidazole and levofloxacin). Pain has persisted and progressively worsened since discharge. Pt presented to ED today for severe LUQ/epigastric pain. Workup significant for increased bilirubin (total 13.3, conjugated 9.9), LFTs (AST 185, ALT 228, Alk Phosp 368), and lipase (176); CT abd/pel notable for abnormal hypodense mass pancreas measuring approximately 4.5 x 3.5 x 3.2 cm with dilation of the biliary tree above this level, as well as a few small sub cm hypodensities in liver and splenomegaly. While in ED pt received 4.5 g IV zosyn and toradol for pain control. Jamia denies recent fever/chills, generalized weakness, dizziness, night sweats, chest pain, palpitations, nausea/vomiting, change in bowel or bladder function. She does admit to dark travis-colored urine despite staying well hydrated, low appetite, and maureen-colored stools. No h/o abdominal surgeries. Occasional alcohol use (none in last 2 weeks), smokes occaisionally, not daily. Pt admitted to med surg unit for further evaluation of hyperbilirubinemia and pancreatic mass. [facility] [place] consulted, pt acccepted for down and back ERCP and US with biopsy tomorrow around 1300. No additional abx recommended. Review of Systems All systems reviewed & are unremarkable except as noted in HPI and below PFSH All Active Problems (Updated 08/07/25 @ 14:58 by Satish Crooks MD) Pancreatic mass (Acute) Hyperbilirubinemia (Acute) Cholangitis (Acute) Pancreatitis (Chronic) Choledocholithiasis (Acute) Upper abdominal discomfort (Acute) Severe obstructive sleep apnea in adult (Chronic) CPAP Lumbar radiculitis (Acute) Posterior left knee pain (Acute ~01/2025) Mechanical low back pain (Acute) Herniation of cervical intervertebral disc with radiculopathy (Acute ~06/2024) 06/[facility] - PT and F/U MRI recommended Degenerative lumbar spinal stenosis (Chronic ~2020) MRI 05/2024 & 2020 (progressing) Hernia, ventral (Acute) [facility] GI-06/13/23 06-26-23: [facility] outpatient CT abdomen w/o contrast. Impression: no acute findings in the abdomen on noncontrast scanning. Small fat containing paraumbilical ventral abdominal wall hernia. Prediabetes (Acute ~04/2023) New DX 04/2023 Chronic back pain (Acute ~08/2021) MRI 2020 [place] Nicotine use disorder (Chronic) 35 pack year Morbid obesity with BMI of 60.0-69.9, adult (Chronic) Asthma (Chronic) H/O Pulm (Jedlovsky) Allergic & environmentally triggered; uses Symbicort PRN, duonebs PRN. 02/2022 Spirometry--NORMAL Hypercholesterolemia (Chronic ~02/2022) Gait disturbance (Chronic) R/T R ankle; has cane CKD (chronic kidney disease) stage 2, GFR 60-89 ml/min (Acute ~2011) Glaucoma (Chronic) [facility] Migraines (Chronic) Infrequent--lifestyle managed (sleep &/or Naproxen) Osteoarthritis (Chronic) Insomnia (Chronic) L-T zolpidem (2021: dose reduction successful; med discontinuation unsuccessful) Trazodone increase 02/16/23 from 100 to 200mg HS Anxiety (Chronic) GERD (gastroesophageal reflux disease) (Chronic) Hypertension (Chronic) Depression (Chronic) Medical History Elevated BP without diagnosis of hypertension Elevated serum creatinine Epigastric pain [facility] 06/13/23 Bronchospasm Surgical History History of ankle surgery (~2007) Plates Bone spur of right ankle (~2006) Surgically removed H/O ankle fusion (~2008) [facility] Family History Father , murdered Anxiety Alcohol use disorder Mother Anxiety Asthma Hypertension Social History (Updated 08/07/25 @ 18:03 by Shay Girard) Smoking/Tobacco Use Status: Current-Occasional Tobacco Type: cigarettes Smoking packs per day: 0.5 Smoking cigarettes per day: 10.0 Years smoked: 40 Smoking pack-years: 20.00 Tobacco: How many years used: 40 Quit status: not considering quitting Smoking risk assessment performed?: Yes Alcohol Intake: current Alcohol Intake frequency: 0-2 drinks per day Alcohol type: beer Drug use: Never Substance use type: does not use Counseling given: No Adopted: No Caregiver/Support person: No Foster care: Yes Household members: spouse Housing: house Number of Children: 1 number of grandchildren: 9 Communication Needs: None Education Level: high school Do you need help understanding health information?: Rarely current occupation: Disabled Pets and animals: Yes Pets and animals: cat(s) and dog(s) Sexually active: Yes Do you think of yourself as: straight/heterosexual Current gender identity: female What is your relationship status?: How often do you talk on the phone with friends or family?: once per week How often do you get together with friends or relatives?: once per week Do you belong to any clubs or organized social groups?: no Panel score (0-1 are the most socially isolated patients): 1 Duration: < 15 minutes/day Frequency: 1-2 times per week Bhavna/Protestant: [employer] Special bhavna needs: No Seatbelt use: never Helmet use: No Drive intox or ride w/intox cdl company flatbed 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 Additional Social history: Lives in [place] with Yuri and pets. Meds Allergies and Home Medications Allergies Allergy/AdvReac Type Severity Reaction Status Date / Time latanoprost (From [place]) Allergy Severe eye bleed, Verified 08/07/25 09:09 blurry visioin metoprolol Allergy Severe Anaphylaxis Verified 08/07/25 09:09 netarsudil (From [place]) Allergy Severe eye bleed, Verified 08/07/25 09:09 blurry visioin tramadol Allergy Intermediate vomiting Verified 08/07/25 09:09 Latex, Natural Rubber Allergy irritation, Verified 08/07/25 09:09 swelling tirzepatide AdvReac Severe Pancreatiti Verified 08/07/25 09:09 s sulfamethoxazole (From AdvReac Intermediate vomiting Verified 08/07/25 09:09 Bactrim) trimethoprim (From Bactrim) AdvReac Intermediate vomiting Verified 08/07/25 09:09 Home Medications ?Medication ?Instructions ?Recorded ?Confirmed ?Type diphenhydramine HCl 25 mg capsule 25 mg PO .QD PRN 01/17/22 08/07/25 History (Benadryl) cholecalciferol (vitamin D3) 25 5,000 unit PO DAILY 02/04/22 08/07/25 History mcg (1,000 unit) capsule latanoprost 0.005 % eye drops 1 drp ophthalmic (eye) QPM 04/19/23 08/07/25 History Ventolin HFA 90 mcg/actuation See Rx Instructions .Route 06/22/24 08/07/25 Rx aerosol inhaler (albuterol sulfate) .COMPLEX #18 grams budesonide-formoterol HFA 160 2 puff inhalation BID PRN 08/26/24 08/07/25 Rx mcg-4.5 mcg/actuation aerosol allergic/environmental asthma #3 inhaler (Symbicort) units ipratropium 0.5 mg-albuterol 3 mg 3 ml inhalation QID PRN shortness 08/26/24 08/07/25 Rx (2.5 mg base)/3 mL nebulization of breath or wheezing #90 mL soln loratadine 10 mg tablet (Allergy See Rx Instructions .Route 09/23/24 08/07/25 Rx Relief (loratadine)) .COMPLEX #90 tabs B/L knee-high compression socks #1 ea 02/20/25 08/07/25 Rx mupirocin 2 % topical ointment See Rx Instructions .Route 02/20/25 08/07/25 Rx .COMPLEX #22 grams trazodone 100 mg tablet See Rx Instructions .Route 02/20/25 08/07/25 Rx .COMPLEX #270 tabs docusate sodium 100 mg capsule 100 mg PO DAILY PRN stool softener 05/14/25 08/07/25 Rx #90 caps cyclobenzaprine 10 mg tablet See Rx Instructions .Route 05/15/25 08/07/25 Rx .COMPLEX #60 tabs losartan 100 mg tablet See Rx Instructions .Route 05/29/25 08/07/25 Rx .COMPLEX #90 tabs montelukast 10 mg tablet See Rx Instructions .Route 06/04/25 08/07/25 Rx .COMPLEX #90 tabs amlodipine 5 mg tablet See Rx Instructions .Route 07/02/25 08/07/25 Rx .COMPLEX #120 tabs omeprazole 40 mg capsule,delayed See Rx Instructions .Route 07/09/25 08/07/25 Rx release .COMPLEX #90 caps docusate sodium 100 mg capsule 100 mg PO BID #14 caps 07/26/25 08/07/25 Rx (Colace) metronidazole 500 mg tablet 500 mg PO Q8H #16 tabs 07/26/25 08/07/25 Rx polyethylene glycol 3350 17 gram 17 g PO DAILY Constipation #14 ea 07/26/25 08/07/25 Rx oral powder packet prochlorperazine maleate 5 mg 5 mg PO TID PRN #9 tabs 07/26/25 08/07/25 Rx tablet (Compazine) hydromorphone 2 mg tablet 1 - 2 mg (0.5 - 1 x 2 mg) PO BID 07/28/25 08/07/25 Rx PRN SEVERE PAIN from cholangitis/pancreatitis #10 tabs zolpidem 5 mg tablet 5 mg PO QHS PRN sleep #30 tabs 07/28/25 08/07/25 Rx Exam Const General: cooperative, no acute distress and other (appears uncomfortable, frequently repositioning during discussion) Nutritional Appearance: obese Orientation: alert and oriented x3 HENMT Head: normal to inspection and normocephalic Ears: hearing grossly normal bilaterally and external ears normal General nose exam: external nose normal Mouth: moist mucous membranes Eyes Sclera: scleral abnormality (scleral icterus) Resp Effort & Inspection: normal respiratory effort and able to speak in complete sentences Auscultation: clear to auscultation bilaterally Cardio Rate: regular rate Rhythm: regular rhythm GI Inspection: normal to inspection and obesity Palpation: soft and tender in the epigastrum and in the RUQ Auscultation: normal bowel sounds Skin General skin exam: no rashes or lesions noted and jaundice Neuro General: patient alert and patient oriented x3 Extrem General: normal to inspection Psych Mental Status: mental status grossly normal Results Imaging Imaging Studies: CT: 1. There is an ominous appearing hypodense mass having its epicenter in the uncinate process of the pancreas with what appears to be contiguous involvement of the duodenal wall in there does appear to be some abnormal tissue encasing the superior mesenteric artery a few cm distal to its origin. The superior mesenteric vein is not occluded. There is dilatation of biliary tree above this level, both intra and extrahepatic and the gallbladder is moderately distended. First consideration is for pancreatic adenocarcinoma. 2. There few small sub cm hypodensities in liver also noted which may be incidental hemangiomas but cannot exclude hepatic metastatic lesions. 3. Splenomegaly evident on him. The splenic vein is not thrombosed. There are no lesions evident within the spleen. There is no ascites Labs 08/07/25 09:37 08/07/25 09:37 Labs: Laboratory Results - last 24 hr 08/07/25 08/07/25 09:37 10:13 WBC 8.52 RBC 5.27 H Hgb 13.8 Hct 43.7 MCV 83 MCH 26.2 L MCHC 31.6 L RDW 17.2 H Plt Count 328 MPV 10.2 Immature Gran % 1.2 Neutrophils % 78.1 Lymphocytes % 11.4 Monocytes % 5.6 Eosinophils % 2.8 Basophils % 0.9 Nucleated RBC % 0.0 Absolute Neutrophils 6.65 Absolute Lymphocytes 0.97 L Absolute Monocytes 0.48 Absolute Eosinophils 0.24 Absolute Basophils 0.08 PT 11.4 H INR 1.1 APTT 29.2 Sodium 139 Potassium 3.7 Chloride 100 Carbon Dioxide 29.2 Anion Gap 9.9 BUN 14 Creatinine 0.94 Est GFR (CKD-EPI 2020) 62.22 Glucose 168 H Calcium 10.4 Magnesium 1.7 Total Bilirubin 13.30 H Conjugated Bilirubin 9.9 H AST 185 H ALT 228 H Alkaline Phosphatase 368 H Total Protein 8.0 Albumin 4.3 Lipase 176 H Urine Color Brown Urine Clarity Cloudy Urine pH 5.5 Ur Specific [place] 1.025 Urine Protein >=300 H Urine Ketones Trace H Urine Blood Trace-intact H Urine Nitrite Negative Urine Bilirubin Large H Urine Urobilinogen 1.0 H Ur Leukocyte Esterase Negative Urine RBC 0-2 Urine WBC Negative Ur Epithelial Cells Rare Urine Crystals Negative Urine Bacteria Few Urine Casts Negative Urine Mucus Trace Urine Other Negative Ur Culture Indicated? No Urine Glucose Negative Last Vital Signs Temp 36.2 C L 08/07/25 15:38 Pulse 78 08/07/25 15:38 Resp 16 08/07/25 09:08 BP 162/106 H 08/07/25 15:38 Pulse Ox 99 08/07/25 09:08 VTE Prohylaxis Risk Level: Moderate/High Risk Contraindications: Other (pending procedure, consider after biopsy) Prophylaxis: Mechanical PAWSS Have you Been Recently Intoxicated or Drunk Within the Last 30 days?: No Have you Ever Experienced Previous Episodes of Alcohol Withdrawal?: No Have you ever Experienced Withdrawal Seizures?: No Have you ever Experienced Delirium Tremens(DT)s?: No Have you ever undergone Alcohol Rehabilitation Treatment (i.e, inpt ot outpatient treatment programs)?: No Have you ever Experienced Blackouts?: No Have you ever Combined Alcohol with other Downers within the last 90 days?: No Have you ever Combined Alcohol with any other Substance of Abuse during the last 90 days?: No Result: 0 Time Spent Time spent with Patient: 55-74 minutes Time was spent: preparing to see the patient(eg.review tests), obtaining and/or reviewing separately otained hiistory, ordering medications,tests, procedures, referring, communicating with other health pet care technician, indepentently interpreting results, counseling the patient and care coordination
--- NOTE | 2025-08-07 15:58 | W.PC.ACHO ---
Registration Status: REG ER Primary Language: Preferred Language: ED Information & Data Chief Complaint Abd Prob 08/07/25 09:36 Triage Note Pt here on 07/24/25 for 08/07/25 09:03 abdominal pain- pain continues to be present- it is not getting worse, but it is not better- pain worse when she eats Medical / Surgical History (Last Reviewed 07/28/25 @ 15:35 by Faye Martinez NP) Elevated BP without diagnosis of hypertension Elevated serum creatinine Epigastric pain Bronchospasm (Last Reviewed 07/28/25 @ 15:35 by Faye Martinez NP) History of ankle surgery (~2007) Bone spur of right ankle (~2006) H/O ankle fusion (~2008) Most Recent Vital Signs Temperature 36.2 C L 08/07/25 15:38 Temperature Source Tympanic 08/07/25 15:38 Pulse 78 08/07/25 15:38 Pulse Rhythm Regular 08/07/25 15:38 Pulse Strength Normal 08/07/25 15:38 Respiratory Rate 16 08/07/25 09:08 Respiratory Depth Normal 08/07/25 12:55 Blood Pressure 162/106 H 08/07/25 15:38 Blood Pressure Mean 124 08/07/25 15:38 Blood Pressure Position Sitting 08/07/25 15:38 Pulse Oximetry 99 08/07/25 09:08 Oxygen Delivery Method Room Air 08/07/25 15:38 Oxygen Flow Rate 0 08/07/25 15:38 Pain Level 4 08/07/25 15:38 Allergies latanoprost (From [place]) Allergy (Severe, Verified 08/07/25 09:09) eye bleed, blurry visioin metoprolol Allergy (Severe, Verified 08/07/25 09:09) Anaphylaxis desaturates to 87%, stops breathing. succinate formula netarsudil (From [place]) Allergy (Severe, Verified 08/07/25 09:09) eye bleed, blurry visioin tramadol Allergy (Intermediate, Verified 08/07/25 09:09) vomiting Latex, Natural Rubber Allergy (Verified 08/07/25 09:09) irritation, swelling tirzepatide Adverse Reaction (Severe, Verified 08/07/25 09:09) Pancreatitis sulfamethoxazole (From Bactrim) Adverse Reaction (Intermediate, Verified 08/07/25 09:09) vomiting trimethoprim (From Bactrim) Adverse Reaction (Intermediate, Verified 08/07/25 09:09) vomiting Precautions Isolation Standard precaution 08/07/25 09:11 Active Medications Generic Name Dose Route Start Last Admin Trade Name Tani PRN Reason Stop Dose Admin Iohexol 100 ml 08/07/25 13:15 08/07/25 13:15 Omnipaque 350 Mg/Ml 100 Ml Btl IJ 09/06/25 23:59 100 ml DIRECTED HARJINDER Administration Sodium Chloride 50 ml 08/07/25 13:15 08/07/25 13:16 Normal Saline - Diluent 50 Ml Vial IJ 50 ml DIRECTED HARJINDER Administration IV IV Catheter Type [Left Peripheral IV Antecubital] IV Catheter Gauge [Left 20 Antecubital] Diet Orders Category Date Time Status Low Sodium [DIET] Nutrition 08/07/25 Dinner Active Nothing Per Oral [DIET] Nutrition 08/08/25 00:01 Ordered Diagnostics 08/07/25 08/07/25 Range/Units 10:13 09:37 WBC 8.52 (4.4-10.8) 10^3/uL RBC 5.27 H (3.93-5.22) 10^6/uL Hgb 13.8 (11.2-15.7) g/dL Hct 43.7 (36.0-46.0) % MCV 83 (80-95) fL MCH 26.2 L (27.0-33.0) pg MCHC 31.6 L (32.0-36.0) % RDW 17.2 H (11.7-14.6) % Plt Count 328 (130-400) 10^3/uL MPV 10.2 (8.0-11.0) fL Immature Gran % 1.2 % Neutrophils % 78.1 % Lymphocytes % 11.4 % Monocytes % 5.6 % Eosinophils % 2.8 % Basophils % 0.9 % Nucleated RBC % 0.0 (0.0-0.3) % Absolute Neutrophils 6.65 (1.2-6.7) 10^3/uL Absolute Lymphocytes 0.97 L (1.2-3.4) 10^3/uL Absolute Monocytes 0.48 (0.1-0.8) 10^3/uL Absolute Eosinophils 0.24 (0.0-0.7) 10^3/uL Absolute Basophils 0.08 (0.0-0.2) 10^3/uL PT 11.4 H (9.1-11.1) sec INR 1.1 (0.9-1.1) APTT 29.2 (20.6-30.2) sec Sodium 139 (136-145) mmol/L Potassium 3.7 (3.5-5.1) mmol/L Chloride 100 (98-107) mmol/L Carbon Dioxide 29.2 (20.0-31.0) mmol/L Anion Gap 9.9 (3-11) mmol/L BUN 14 (9-23) mg/dL Creatinine 0.94 (0.55-1.02) mg/dL Est GFR (CKD-EPI 2020) 62.22 (mL/min/1.73m2) Glucose 168 H (74-106) mg/dL Calcium 10.4 (8.3-10.6) mg/dL Magnesium 1.7 (1.6-2.6) mg/dL Total Bilirubin 13.30 H (0.2-1.2) mg/dL Conjugated Bilirubin 9.9 H (<=0.3) mg/dL AST 185 H (<34) U/L ALT 228 H (10-49) U/L Alkaline Phosphatase 368 H (46-116) U/L Total Protein 8.0 (5.7-8.2) g/dL Albumin 4.3 (3.2-5.0) g/dL Lipase 176 H (<53) U/L Urine Color Brown (Yellow) Urine Clarity Cloudy (Clear) Urine pH 5.5 (5-8) Ur Specific [place] 1.025 (1.005-1.025) Urine Protein >=300 H (Neg-Trace) mg/dL Urine Ketones Trace H (Negative) mg/dL Urine Blood Trace-intact H (Negative) Urine Nitrite Negative (Negative) Urine Bilirubin Large H (Negative) Urine Urobilinogen 1.0 H (Up to 0.2) mg/dL Ur Leukocyte Esterase Negative (Negative) Urine RBC 0-2 (0-2) HPF Urine WBC Negative (0-5) HPF Ur Epithelial Cells Rare (Negative) HPF Urine Crystals Negative (Negative) HPF Urine Bacteria Few (Negative) HPF Urine Casts Negative (Negative) LPF Urine Mucus Trace (Negative) Urine Other Negative (Negative) Ur Culture Indicated? No Urine Glucose Negative (Negative) mg/dL 08/07/25 12:50 Blood Culture - Pending Blood 08/07/25 11:45 Blood Culture - Pending Blood Intake and Output - 24 Hour Total 08/07/25 08:55 thru 08/07/25 14:32 Intake Total 1110 Balance 1110 Weight 186.426 kg Intake: IV 1110 Falls Risk Assessment History of Falls No History 08/07/25 09:11 Contributing Factors No Factors 08/07/25 09:11 Ambulatory Aids Independent 08/07/25 09:11 Tubes/Lines None 08/07/25 09:11 Gait Evaluation No gait disturbance 08/07/25 09:11 Cognition No cognitive impairment 08/07/25 09:11 Fall Total Score 0 08/07/25 09:11 Level of Risk Standard/Low Risk 08/07/25 09:11 Attestation Statement: By documenting the first initial, last name, and credentials of the reporting nurse below, both parties acknowledge that all relevant information regarding the patient handoff has been communicated, and that all questions have been addressed to ensure continuity and safety of care. Additional Patient Information/Comments: All questions answerd, pt will be going to room 217 [facility] Report Received From: Report recieved from Aline Rinaldi RN @ [id number]
[2025-08-07] MEDS: diphenhydrAMINE 50 MG/ML VIAL 25 MG IVP (15:59)
[2025-08-07] MEDS: HYDROmorphone 2 MG/ML SYR 1 MG IVP ×2 (17:13→21:13)
[2025-08-07] MEDS: Normal Saline Flush 10 ML SYR IVP ×2 (17:14→20:07)
[2025-08-07] MEDS: POTASSIUM CHLORIDE/D5-0.45NACL 1,000 ML 100 MEQ IV (17:14)
[2025-08-07] MEDS: Zolpidem 5 MG TAB PO (20:05)
[2025-08-07] MEDS: traZODone 100 MG TAB PO (20:05)
[2025-08-07] MEDS: diphenhydrAMINE 25 MG CAP PO (21:59)
[2025-08-08 02:55] VITALS: BP 135/88; PULSE 100; RESP 16; TEMP 36.2; O2SAT 95
[2025-08-08] MEDS: POTASSIUM CHLORIDE/D5-0.45NACL 1,000 ML 100 MEQ IV (03:01)
[2025-08-08] MEDS: HYDROmorphone 2 MG/ML SYR 1 MG IVP ×2 (03:06→09:02)
[2025-08-08 07:30] VITALS: BP 132/75; PULSE 81; RESP 16; TEMP 35.9; O2SAT 92
[2025-08-08 07:47] LABS: ALT 170 U/L (10-49); AST 131 U/L (<34); Albumin 3.5 g/dL (3.2-5.0); Alkaline Phosphatase 302 U/L (46-116); Anion Gap 8.7 mmol/L (3-11); BUN 13 mg/dL (9-23); Bilirubin, Total 11.50 mg/dL (0.2-1.2); CO2 28.3 mmol/L (20.0-31.0); Calcium 9.6 mg/dL (8.3-10.6); Chloride 101 mmol/L (98-107); Glucose 134 mg/dL (74-106); Potassium 3.8 mmol/L (3.5-5.1); Sodium 138 mmol/L (136-145); Total Protein 6.2 g/dL (5.7-8.2)
--- NOTE | 2025-08-08 07:53 | PGE_ITS ---
Date of Service Date of service: 08/08/25 Time of Service: 07:30 Assessment and Plan Assessment and plan (1) Pancreatic mass: Status: Acute Assessment and plan: -CT abd/pel with 4.5 x 3.5 x 3.2 cm mass in pancreas with dilation of the biliary tree above this level; additional hypodensities in liver also noted with splenomegaly, concerning for pancreatic cancer with biliary obstruction -ERCP with US planned for 08/08 at [facility] [place] (down and back procedure around 1300) -We discussed possibility of cancer and possible next step after diagnosis. -pain control with dilaudid PRN (2) GERD (gastroesophageal reflux disease): Status: Chronic Assessment and plan: -continue PPI (protonix IV) (3) Hyperbilirubinemia: Status: Acute Assessment and plan: -associated with likely biliary duct obstruction due to pancreatic mass. -T bili 13.3 >11.5 (08/07-08/08) with conjugated bili 9.9 (08/08), will continue to monitor -she may need stenting, obviously [facility] to decide this (4) CKD (chronic kidney disease) stage 2, GFR 60-89 ml/min: Status: Acute Assessment and plan: -stable, Creat 0.94 > 1.19 (baseline creat 1.1-1.2) (5) Hypertension: Status: Chronic Assessment and plan: -Continue home medicine regimen (amlodipine, losartan), hold ARB 12/5 AM pre-op, but resume after. I saw the patient and formulated plan as above with May Barahona CHIEF WHARFINGER. Patient is at [facility] [place] now. Palliative care ordered for when she gets back. -Shay Girard MD Subjective Subjective Interval history since last seen: No acute events overnight. Jamia reports she is feeling comfortable, pain well controlled with dilaudid PRN. Has been NPO since midnight in anticipation of ERCP with biopsy this morning. Denies fever/chills, chest pain, nausea/vomiting, change in UO. No BM today, would like to have a stool softener when she returns from procedure at [facility] [place]. Exam Const General: cooperative, no acute distress and other (appears uncomfortable, frequently repositioning during discussion) Nutritional Appearance: obese Orientation: alert and oriented x3 HENMT Head: normal to inspection and normocephalic Ears: hearing grossly normal bilaterally and external ears normal General nose exam: external nose normal Mouth: moist mucous membranes Eyes Sclera: scleral abnormality (scleral icterus) Resp Effort & Inspection: normal respiratory effort and able to speak in complete sentences Auscultation: clear to auscultation bilaterally Cardio Rate: regular rate Rhythm: regular rhythm GI Inspection: normal to inspection and obesity Palpation: soft and tender in the epigastrum and in the RUQ Auscultation: normal bowel sounds Skin General skin exam: no rashes or lesions noted and jaundice Neuro General: patient alert and patient oriented x3 Extrem General: normal to inspection Psych Mental Status: mental status grossly normal Objective Last Vital Signs Temp 96.6 F L 08/08/25 07:30 Pulse 81 08/08/25 07:30 Resp 16 08/08/25 07:30 BP 132/75 08/08/25 07:30 Pulse Ox 92 08/08/25 07:30 Laboratory Results - last 24 hr 08/07/25 08/07/25 08/08/25 09:37 10:13 06:50 WBC 8.52 RBC 5.27 H Hgb 13.8 Hct 43.7 MCV 83 MCH 26.2 L MCHC 31.6 L RDW 17.2 H Plt Count 328 MPV 10.2 Immature Gran % 1.2 Neutrophils % 78.1 Lymphocytes % 11.4 Monocytes % 5.6 Eosinophils % 2.8 Basophils % 0.9 Nucleated RBC % 0.0 Absolute Neutrophils 6.65 Absolute Lymphocytes 0.97 L Absolute Monocytes 0.48 Absolute Eosinophils 0.24 Absolute Basophils 0.08 PT 11.4 H INR 1.1 APTT 29.2 Sodium 139 138 Potassium 3.7 3.8 Chloride 100 101 Carbon Dioxide 29.2 28.3 Anion Gap 9.9 8.7 BUN 14 13 Creatinine 0.94 1.19 H Est GFR (CKD-EPI 2020) 62.22 47.39 Glucose 168 H 134 H Calcium 10.4 9.6 Magnesium 1.7 Total Bilirubin 13.30 H 11.50 H Conjugated Bilirubin 9.9 H AST 185 H 131 H ALT 228 H 170 H Alkaline Phosphatase 368 H 302 H Total Protein 8.0 6.2 Albumin 4.3 3.5 Lipase 176 H Urine Color Brown Urine Clarity Cloudy Urine pH 5.5 Ur Specific Accident 1.025 Urine Protein >=300 H Urine Ketones Trace H Urine Blood Trace-intact H Urine Nitrite Negative Urine Bilirubin Large H Urine Urobilinogen 1.0 H Ur Leukocyte Esterase Negative Urine RBC 0-2 Urine WBC Negative Ur Epithelial Cells Rare Urine Crystals Negative Urine Bacteria Few Urine Casts Negative Urine Mucus Trace Urine Other Negative Ur Culture Indicated? No Urine Glucose Negative PAWSS Have you Been Recently Intoxicated or Drunk Within the Last 30 days?: No Have you Ever Experienced Previous Episodes of Alcohol Withdrawal?: No Have you ever Experienced Withdrawal Seizures?: No Have you ever Experienced Delirium Tremens(DT)s?: No Have you ever undergone Alcohol Rehabilitation Treatment (i.e, inpt ot outpatient treatment programs)?: No Have you ever Experienced Blackouts?: No Have you ever Combined Alcohol with other Downers within the last 90 days?: No Have you ever Combined Alcohol with any other Substance of Abuse during the last 90 days?: No Positive Blood Alcohol level on Presentation? [PCS.BAL]: No Evidence of Increased Autonomic Activity (i.e. HR>120, tremor, sweating, agitation, nausea)?: No Result: 0 VTE Prohylaxis Risk Level: Moderate/High Risk Contraindications: Other (pending procedure, consider after biopsy) Prophylaxis: Mechanical Time Spent with Patient Time Spent with Patient: 35-49 minutes Time was spent: preparing to see the patient(eg.review tests), obtaining and/or reviewing separately otained hiistory, ordering medications,tests, procedures, referring, communicating with other health home care physical therapist, indepentently interpreting results, counseling the patient and care coordination
[2025-08-08] MEDS: amLODIPine 5 MG TAB PO (08:19)
[2025-08-08] MEDS: Loratidine 10 MG TAB PO (08:19)
[2025-08-08] MEDS: Montelukast 10 MG TAB PO (08:19)
[2025-08-08] MEDS: Pantoprazole 40 MG VIAL IVP (08:38)
--- NOTE | 2025-08-08 08:43 | INITIAL_ITS ---
Date of service: 08/08/25 Time of Service: 08:44 Care Management Initial Assmt Initial Assessment Reason for Hospitalization: pancreatic mass, bile duct obstruction Functional Status/Living Situation Patient Presentation: Jamia was awake and resting in bed during CM?s visit. She initially presented to the ED on 07/24 with abdominal pain and was admitted for evaluation. She underwent an ERCP and was subsequently treated and discharged. She re-presented to the ED on 08/07 with recurrent upper abdominal discomfort. Per report, Jamia is scheduled for an ERCP today at [facility], with same-day return anticipated. A palliative care consultation was requested by CM, which Jamia is receptive to. She resides in [place] with her , Yuri, and they share a large family, including several children and grandchildren. Jamia requires some assistance with activities of daily living, particularly household tasks. 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 She is currently on disability, and a referral to the [place] on Aging was submitted during her previous admission to explore additional in-home support. Jamia does not currently receive home health services but is agreeable to initiating them upon discharge. She does not drive and relies on her and children for transportation. will continue to follow and support discharge planning needs. Town of Residence: [place] Resides with: Spouse (Yuri) Significant Other/Family: Local (3 children, 11 grandkids) Caregiver/Guardian: Yuri provides some care Natural Supports: large group of friends and family Employment Status: Disabled Instrumental Activities of Daily Living (ADLs): Independent Medications Medication Management: No Issues/Barriers identified Physical Functioning/Mobility Assistive Device: has a walker at home she uses to go out Advance Directives Advance Directives: Do you have an Advance Directive: N , 13:41 AD On File at [facility]: N 18, 14:51 Date Asked 08/07/25 08/07/25, 08:59 AD Date Reviewed COLST On File at [facility] COLST Date Scanned Code Status Resuscitation Status Full Code Portal Pt does not currently have a portal and education provided: Yes Insurance Coverage/Financial Issues Insurance: Medicare Part A & B - [id number] Care Team Visit Care Team Role Provider Type Faye Martinez NP Primary Care Provider NURSE PRACTITIONER Satish Crooks MD Emergency Provider [facility] STAFF PHYSICIAN Shay Girard Admit Provider [facility] STAFF PHYSICIAN Attending Provider Discharge Potential Discharge Needs: PCP F/U Appt and Surgical F/U Appt Anticipated Barriers to Discharge: None Identified Patient/Family Education Needs: Review discharge instructions, discuss Ask Me Three Transportation: Private vehicle Plan: Jamia will be going to [facility] today for an ERCP, down and back procedure. 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 it is recommended she follow up with her community providers, surgical team, palliative care and plan of care; PCP follow up 08/13. Jamia will transport home in a private vehicle. CM will continue to follow. Social Determinants of Health Screening Will the Patient Participate in the Screening?: Declined to provide Do you worry about having a steady place to live?: no PFSH All Active Problems (Updated 08/07/25 @ 14:58 by Satish Crooks MD) Pancreatic mass (Acute) Hyperbilirubinemia (Acute) Cholangitis (Acute) Pancreatitis (Chronic) Choledocholithiasis (Acute) Upper abdominal discomfort (Acute) Severe obstructive sleep apnea in adult (Chronic) CPAP Lumbar radiculitis (Acute) Posterior left knee pain (Acute ~01/2025) Mechanical low back pain (Acute) Herniation of cervical intervertebral disc with radiculopathy (Acute ~06/2024) [facility] - [facility] and F/U MRI recommended Degenerative lumbar spinal stenosis (Chronic ~2020) MRI 05/2024 & 2020 (progressing) Hernia, ventral (Acute) [facility] GI-06/13/23 06-26-23: [facility] outpatient CT abdomen w/o contrast. Impression: no acute findings in the abdomen on noncontrast scanning. Small fat containing paraumbilical ventral abdominal wall hernia. Prediabetes (Acute ~04/2023) New DX 04/2023 Chronic back pain (Acute ~08/2021) MRI 2020 [facility] Nicotine use disorder (Chronic) 35 pack year Morbid obesity with BMI of 60.0-69.9, adult (Chronic) Asthma (Chronic) H/O Pulm (Jedlovsky) Allergic & environmentally triggered; uses Symbicort PRN, duonebs PRN. 02/2022 Spirometry--NORMAL Hypercholesterolemia (Chronic ~02/2022) Gait disturbance (Chronic) R/T R ankle; has cane CKD (chronic kidney disease) stage 2, GFR 60-89 ml/min (Acute ~2011) Glaucoma (Chronic) [facility] Migraines (Chronic) Infrequent--lifestyle managed (sleep &/or Naproxen) Osteoarthritis (Chronic) Insomnia (Chronic) L-T zolpidem (2021: dose reduction successful; med discontinuation unsuccessful) Trazodone increase 02/16/23 from 100 to 200mg HS Anxiety (Chronic) GERD (gastroesophageal reflux disease) (Chronic) Hypertension (Chronic) Depression (Chronic) Medical History Elevated BP without diagnosis of hypertension Elevated serum creatinine Epigastric pain [facility] 06/13/23 Bronchospasm Surgical History History of ankle surgery (~2007) Plates Bone spur of right ankle (~2006) Surgically removed H/O ankle fusion (~2008) [facility] Family History Father , murdered Anxiety Alcohol use disorder Mother Anxiety Asthma Hypertension Social History (Updated 08/07/25 @ 18:03 by hSay Girard) Smoking/Tobacco Use Status: Current-Occasional Tobacco Type: cigarettes Smoking packs per day: 0.5 Smoking cigarettes per day: 10.0 Years smoked: 40 Smoking pack-years: 20.00 Tobacco: How many years used: 40 Quit status: not considering quitting Smoking risk assessment performed?: Yes Alcohol Intake: current Alcohol Intake frequency: 0-2 drinks per day Alcohol type: beer Drug use: Never Substance use type: does not use Counseling given: No Adopted: No Caregiver/Support person: No Foster care: Yes Household members: spouse Housing: house Number of Children: 1 number of grandchildren: 9 Communication Needs: None Education Level: high school Do you need help understanding health information?: Rarely current occupation: Disabled Pets and animals: Yes Pets and animals: cat(s) and dog(s) Sexually active: Yes Do you think of yourself as: straight/heterosexual Current gender identity: female What is your relationship status?: How often do you talk on the phone with friends or family?: once per week How often do you get together with friends or relatives?: once per week Do you belong to any clubs or organized social groups?: no Panel score (0-1 are the most socially isolated patients): 1 Duration: < 15 minutes/day Frequency: 1-2 times per week Bhavna/Quaker: Anabaptist Special bhavna needs: No Seatbelt use: never Helmet use: No Drive intox or ride w/intox warehouse delivery 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 Additional Social history: Lives in [place] with Yuri and pets. Readmission Within the Past 30 Days Yes or No: No Date of First Admission Date of 1st Admission: 08/23/25 Date of this Admission Date of Admission: 08/07/25 This admission was: Through ED Office Visit Since 1st Admission Have you seen your PCP in the office since discharge?: Yes Date of PCP Appointment: 07/28 Had an appointment Been Scheduled?: Yes Date of Scheduled Appointment: 08/13 Speicalist Appointments Have you seen any other specialist since your 1st Admission?: No I. Interview patient and/or Family Difficulty reaching your doctor or getting an office appt?: No Have you had trouble purchasing/ or taking medication?: No Have you had trouble with getting meals at home?: No Did you feel ready for discharge when you left the last time: Yes Were services received that you thought were set up on disch: Yes Did you call your physician beore you came to the ED?: No Did your physician tell you to come in?: No How do you think you became sick enough to come back?: This mass inside me If the patient had a VNA ordered Did the patient have a VNA order?: No ED visits How many ED visits in the past 12 months: 2
[2025-08-08] MEDS: diphenhydrAMINE 50 MG/ML VIAL 25 MG IVP (09:09)
[2025-08-08] MEDS: Ondansetron O.D.T. 4 MG TABEF PO (09:13)
--- NOTE | 2025-08-09 07:19 | DSE_ITS ---
Date of service: 08/08/25 Time of Service: 17:00 DS: Diagnosis Discharge Diagnosis (1) Pancreatic mass: Status: Acute (2) GERD (gastroesophageal reflux disease): Status: Chronic (3) Hyperbilirubinemia: Status: Acute (4) CKD (chronic kidney disease) stage 2, GFR 60-89 ml/min: Status: Acute (5) Hypertension: Status: Chronic Discharge Plan Disposition Patient Disposition: Transfer-Acute Inpatient Care Specific Acute Inpt Facility: [facility] Condition: Fair Discharge Details Reason For Visit: Pancreatic Mass, Bile Duct Obstruction Admit Date/Time: 08/07/25 15:07 Admit Provider: Shay Girard Attending Provider: Shay Girard Primary Care Provider: Faye Martinez Hospital Course Hospital Course: 55 yo female patient with a past medical history of morbid obesity, glomerulonephritis in remission, asthma, GERD, HTN, and insomnia who presented to the emergency dept for progressively worsening RUQ/epigastric pain and jaundice for a period of 4 weeks. She was initially admitted 07/24- and found to have common bile duct dilation on ultrasound. Treatment was started for cholangitis with levofloxacin and metronidazole, and [place] [facility] [place] in which no stone was found. Impression was a passed a biliary stone. She was able to eat and drink and on 07/26 she was discharged home. Her waxing/waning pain and anorexia continued and her jaundice worsened and she was readmitted 08/07. Her bilirubin had increased to 13.3. This time a abd/pelvic CT was done and showed 4.5cm mass in the pancreas. She was admitted for supportive care until she was sent [place] [facility] [place] with a plan for down/back for repeat ERCP and endoscopic ultrasound guided biopsy. She was not stable after the procedure so she was admitted [place] [facility] [place]. Home Meds and New Rx's Prescriptions: No Action diphenhydramine HCl [Benadryl] 25 mg capsule 25 mg PO .QD PRN Patient Comments: allergies (DME) B/L knee-high compression socks See Rx Instructions .Route .MEDSUPPLY Qty: 1 0RF Rx Instructions: Venous insufficiency with b/l LE pitting edema, 10-15mmHg or 15-20mmHg docusate sodium 100 mg capsule 100 mg PO DAILY PRN (Reason: stool softener) Qty: 90 3RF Rx Instructions: For Zepbound cholecalciferol (vitamin D3) 25 mcg (1,000 unit) capsule 5,000 unit PO DAILY latanoprost 0.005 % drops 1 drp ophthalmic (eye) QPM Rx Instructions: 1 drop both eyes qhs-- budesonide-formoterol [Symbicort] 160-4.5 mcg/actuation HFA aerosol inhaler 2 puff inhalation BID PRN (Reason: allergic/environmental asthma) Qty: 3 3RF Rx Instructions: Uses PRN with triggered flares (lower dose ineffective) ipratropium-albuterol 0.5 mg-3 mg(2.5 mg base)/3 mL solution for nebulization 3 ml inhalation QID PRN (Reason: shortness of breath or wheezing) Qty: 90 3RF zolpidem 5 mg tablet 5 mg PO QHS MDD 5mg PRN (Reason: sleep) Qty: 30 5RF hydromorphone 2 mg tablet 1 - 2 mg PO BID MDD 4mg PRN (Reason: SEVERE PAIN from cholangitis/pancreatitis) Qty: 10 0RF albuterol sulfate [Ventolin HFA] 90 mcg/actuation HFA aerosol inhaler See Rx Instructions .ROUTE .COMPLEX Qty: 18 10RF Dose Instruction: INHALE 2 PUFFS BY MOUTH EVERY 4 HOURS NEEDED FOR WHEEZING FOR SHORTNESS OF BREATH Rx Instructions: INHALE 2 PUFFS BY MOUTH EVERY 4 HOURS NEEDED FOR WHEEZING FOR SHORTNESS OF BREATH loratadine [Allergy Relief (loratadine)] 10 mg tablet See Rx Instructions .ROUTE .COMPLEX Qty: 90 3RF Dose Instruction: TAKE 1 TABLET BY MOUTH ONCE DAILY NEEDED FOR ALLERGIC SYMPTOMS Rx Instructions: TAKE 1 TABLET BY MOUTH ONCE DAILY NEEDED FOR ALLERGIC SYMPTOMS trazodone 100 mg tablet See Rx Instructions .ROUTE .COMPLEX Qty: 270 3RF Dose Instruction: TAKE 1 TO 3 TABLETS BY MOUTH AT BEDTIME NEEDED FOR SLEEP / FOR INSOMNIA - TAKE LOWEST EFFECTIVE DOSE Rx Instructions: TAKE 1 TO 3 TABLETS BY MOUTH AT BEDTIME NEEDED FOR SLEEP / FOR INSOMNIA - TAKE LOWEST EFFECTIVE DOSE mupirocin 2 % ointment See Rx Instructions .ROUTE .COMPLEX Qty: 22 1RF Dose Instruction: APPLY OINTMENT TOPICALLY TO AFFECTED AREA 2 TO 3 TIMES DAILY NEEDED FOR SKIN LESIONS/BOILS,APPLY THIN UNTIL LESION RESOLVED Rx Instructions: APPLY OINTMENT TOPICALLY TO AFFECTED AREA 2 TO 3 TIMES DAILY NEEDED FOR SKIN LESIONS/BOILS,APPLY THIN UNTIL LESION RESOLVED cyclobenzaprine 10 mg tablet See Rx Instructions .ROUTE .COMPLEX Qty: 60 0RF Dose Instruction: TAKE 1 TABLET BY MOUTH TWICE DAILY NEEDED FOR LUMBAR SPINE MUSCLE SPASM Rx Instructions: TAKE 1 TABLET BY MOUTH TWICE DAILY NEEDED FOR LUMBAR SPINE MUSCLE SPASM losartan 100 mg tablet See Rx Instructions .ROUTE .COMPLEX Qty: 90 3RF Dose Instruction: Take 1 tablet by mouth once daily Rx Instructions: Take 1 tablet by mouth once daily montelukast 10 mg tablet See Rx Instructions .ROUTE .COMPLEX Qty: 90 3RF Dose Instruction: TAKE 1 TABLET BY MOUTH ONCE DAILY FOR ASTHMA AND FOR ALLERGIES Rx Instructions: TAKE 1 TABLET BY MOUTH ONCE DAILY FOR ASTHMA AND FOR ALLERGIES amlodipine 5 mg tablet See Rx Instructions .ROUTE .COMPLEX Qty: 120 3RF Dose Instruction: TAKE 1 TABLET BY MOUTH ONCE DAILY FOR BLOOD PRESSURE MAY TAKE UP TO MAX 10MG DAILY Rx Instructions: TAKE 1 TABLET BY MOUTH ONCE DAILY FOR BLOOD PRESSURE MAY TAKE UP TO MAX 10MG DAILY omeprazole 40 mg capsule,delayed release(DR/EC) See Rx Instructions .ROUTE .COMPLEX Qty: 90 3RF Dose Instruction: Take 1 capsule by mouth once daily Rx Instructions: Take 1 capsule by mouth once daily polyethylene glycol 3350 17 gram Powder In Packet 17 g PO DAILY Qty: 14 0RF docusate sodium [Colace] 100 mg Capsule 100 mg PO BID Qty: 14 0RF Rx Instructions: Stop if diarrhea develops metronidazole 500 mg tablet 500 mg PO Q8H Qty: 16 0RF prochlorperazine maleate [Compazine] 5 mg tablet 5 mg PO TID PRNQty: 9 0RF Rx Instructions: PRN nausea Discharge Instructions Activity:: Activity as Tolerated Equipment/Supplies:: No Equipment Needed Diet:: NPO Discharge Orders Discharge Orders: Discharge Order (Routine); Ordered 08/09/25 Ordered By: Shay Girard Discharge Data Discharge Date/Time-TO BE ENTERED AT DEPARTURE: 08/08/25 21:06 DS: Summary Time Spent with Patient providing and/or coordinating discharge services: Greater than 30 minutes Status at Discharge Functional status at discharge: bed bound Overall status at discharge: patient is not back to baseline Mental Status: mental status grossly normal Speech and Movement: speech and movement normal Mood: congruent mood Affect: normal affect Quality:SDOH Health Related Social Needs: Health related social needs material hardship Health related social needs details None identified by patient. Exam Psych Mental Status: mental status grossly normal Speech and Movement: speech and movement normal Mood: congruent mood Affect: normal affect DS: Data Vitals/I&O Vitals and I&O: Vital Signs Temperature 35.9 C L 08/08/25 07:30 Temperature Source Temporal Artery Scan 08/08/25 07:30 Pulse 81 08/08/25 07:30 Pulse Rhythm Regular 08/07/25 17:19 Pulse Strength Normal 08/07/25 15:38 Respiratory Rate 16 08/08/25 07:30 Respiratory Effort Normal 08/07/25 17:19 Respiratory Depth Normal 08/07/25 17:19 Respiratory Pattern Normal 08/07/25 17:19 Blood Pressure 132/75 08/08/25 07:30 Blood Pressure Mean 94 08/08/25 07:30 Blood Pressure Position Sitting 08/07/25 15:38 Pulse Oximetry 92 08/08/25 07:30 Oxygen Delivery Method Room Air 08/08/25 07:30 Oxygen Flow Rate 0 08/08/25 07:30 Pain Level 6 08/08/25 09:30 Comment pt is down at [facility]..staying overnight 08/08/25 19:47 Intake & Output 08/08/25 08/08/25 08/09/25 11:59 23:59 11:59 Intake Total 999 Balance 999 Weight 178.8 kg Intake: IV 999 Other: Urine Color Light Emma Urine Appearance Clear Data Completed and Pending Pending Labs at Discharge: 08/07/25 08/07/25 08/08/25 09:37 10:13 06:50 WBC 8.52 RBC 5.27 H Hgb 13.8 Hct 43.7 MCV 83 MCH 26.2 L MCHC 31.6 L RDW 17.2 H Plt Count 328 MPV 10.2 Immature Gran % 1.2 Neutrophils % 78.1 Lymphocytes % 11.4 Monocytes % 5.6 Eosinophils % 2.8 Basophils % 0.9 Nucleated RBC % 0.0 Absolute Neutrophils 6.65 Absolute Lymphocytes 0.97 L Absolute Monocytes 0.48 Absolute Eosinophils 0.24 Absolute Basophils 0.08 PT 11.4 H INR 1.1 APTT 29.2 Sodium 139 138 Potassium 3.7 3.8 Chloride 100 101 Carbon Dioxide 29.2 28.3 Anion Gap 9.9 8.7 BUN 14 13 Creatinine 0.94 1.19 H Est GFR (CKD-EPI 2020) 62.22 47.39 Glucose 168 H 134 H Calcium 10.4 9.6 Magnesium 1.7 Total Bilirubin 13.30 H 11.50 H Conjugated Bilirubin 9.9 H AST 185 H 131 H ALT 228 H 170 H Alkaline Phosphatase 368 H 302 H Total Protein 8.0 6.2 Albumin 4.3 3.5 Lipase 176 H Urine Color Brown Urine Clarity Cloudy Urine pH 5.5 Ur Specific [place] 1.025 Urine Protein >=300 H Urine Ketones Trace H Urine Blood Trace-intact H Urine Nitrite Negative Urine Bilirubin Large H Urine Urobilinogen 1.0 H Ur Leukocyte Esterase Negative Urine RBC 0-2 Urine WBC Negative Ur Epithelial Cells Rare Urine Crystals Negative Urine Bacteria Few Urine Casts Negative Urine Mucus Trace Urine Other Negative Ur Culture Indicated? No Urine Glucose Negative Preliminary micro results at discharge 08/07/25 12:50 Blood Blood Culture - Preliminary NO GROWTH 24 HOURS 08/07/25 11:45 Blood Blood Culture - Preliminary NO GROWTH 24 HOURS PFSH All Active Problems (Updated 08/07/25 @ 14:58 by Saitsh Crooks MD) Pancreatic mass (Acute) Hyperbilirubinemia (Acute) Cholangitis (Acute) Pancreatitis (Chronic) Choledocholithiasis (Acute) Upper abdominal discomfort (Acute) Severe obstructive sleep apnea in adult (Chronic) CPAP Lumbar radiculitis (Acute) Posterior left knee pain (Acute ~01/2025) Mechanical low back pain (Acute) Herniation of cervical intervertebral disc with radiculopathy (Acute ~06/2024) 06/18/24 [facility] - PT and F/U MRI recommended Degenerative lumbar spinal stenosis (Chronic ~2020) MRI 05/2024 & 2020 (progressing) Hernia, ventral (Acute) [facility] GI-06/13/23 06-26-23: [facility] outpatient CT abdomen w/o contrast. Impression: no acute findings in the abdomen on noncontrast scanning. Small fat containing paraumbilical ventral abdominal wall hernia. Prediabetes (Acute ~04/2023) New DX 04/2023 Chronic back pain (Acute ~08/2021) MRI 2020 [facility] Nicotine use disorder (Chronic) 35 pack year Morbid obesity with BMI of 60.0-69.9, adult (Chronic) Asthma (Chronic) H/O Pulm (Jedlovsky) Allergic & environmentally triggered; uses Symbicort PRN, duonebs PRN. 02/2022 Spirometry--NORMAL Hypercholesterolemia (Chronic ~02/2022) Gait disturbance (Chronic) R/T R ankle; has cane CKD (chronic kidney disease) stage 2, GFR 60-89 ml/min (Acute ~2011) Glaucoma (Chronic) [facility] Migraines (Chronic) Infrequent--lifestyle managed (sleep &/or Naproxen) Osteoarthritis (Chronic) Insomnia (Chronic) L-T zolpidem (2021: dose reduction successful; med discontinuation unsuccessful) Trazodone increase 02/16/23 from 100 to 200mg HS Anxiety (Chronic) GERD (gastroesophageal reflux disease) (Chronic) Hypertension (Chronic) Depression (Chronic) Medical History Elevated BP without diagnosis of hypertension Elevated serum creatinine Epigastric pain [facility] 06/13/23 Bronchospasm Surgical History History of ankle surgery (~2007) Plates Bone spur of right ankle (~2006) Surgically removed H/O ankle fusion (~2008) [facility] [place] History Father , murdered Anxiety Alcohol use disorder Mother Anxiety Asthma Hypertension Social History (Updated 08/07/25 @ 18:03 by Shay Girard) Smoking/Tobacco Use Status: Current-Occasional Tobacco Type: cigarettes Smoking packs per day: 0.5 Smoking cigarettes per day: 10.0 Years smoked: 40 Smoking pack-years: 20.00 Tobacco: How many years used: 40 Quit status: not considering quitting Smoking risk assessment performed?: Yes Alcohol Intake: current Alcohol Intake frequency: 0-2 drinks per day Alcohol type: beer Drug use: Never Substance use type: does not use Counseling given: No Adopted: No Caregiver/Support person: No Foster care: Yes Household members: spouse Housing: house Number of Children: 1 number of grandchildren: 9 Communication Needs: None Education Level: high school Do you need help understanding health information?: Rarely current occupation: Disabled Pets and animals: Yes Pets and animals: cat(s) and dog(s) Sexually active: Yes Do you think of yourself as: straight/heterosexual Current gender identity: female What is your relationship status?: How often do you talk on the phone with friends or family?: once per week How often do you get together with friends or relatives?: once per week Do you belong to any clubs or organized social groups?: no Panel score (0-1 are the most socially isolated patients): 1 Duration: < 15 minutes/day Frequency: 1-2 times per week Bhavna/Hinduism: Muslim Special bhavna needs: No Seatbelt use: never Helmet use: No Drive intox or ride w/intox automation 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 Additional Social history: Lives in [place] with Yuri and pets. Time Spent with Patient Time Spent with Patient: 45-69 minutes Time was spent: preparing to see the patient(eg.review tests), obtaining and/or reviewing separately otained hiistory, ordering medications,tests, procedures, referring, communicating with other health family day care provider, indepentently interpreting results, counseling the patient, care coordination and other
== END 2025-08-08 21:06 | disposition short-term general hospital (02) | DRG 438 ==
LOC: ER 14:58 → MS 16:19
PROVIDERS: Admitting Provider Family Medicine; Emergency Provider Emergency Medicine; PCP Nurse Practitioner Adult Health; Responsible Provider Family Medicine; Visit Provider Family Medicine
DX: K86.89 Other specified diseases of pancreas (principal); E80.6 Other disorders of bilirubin metabolism; K21.9 Gastro-esophageal reflux disease without esophagitis; N18.2 Chronic kidney disease, stage 2 (mild); I12.9 Hypertensive chronic kidney disease with stage 1 through stage 4 chronic kidney disease, or unspecified chronic kidney disease; K83.1 Obstruction of bile duct; Z68.44 Body mass index [BMI] 60.0-69.9, adult; R16.1 Splenomegaly, not elsewhere classified; E66.01 Morbid (severe) obesity due to excess calories; J45.909 Unspecified asthma, uncomplicated; G47.00 Insomnia, unspecified; G47.33 Obstructive sleep apnea (adult) (pediatric); M48.061 Spinal stenosis, lumbar region without neurogenic claudication; M54.16 Radiculopathy, lumbar region; R73.03 Prediabetes; G89.29 Other chronic pain; E78.00 Pure hypercholesterolemia, unspecified; R26.89 Other abnormalities of gait and mobility; H40.9 Unspecified glaucoma; G43.909 Migraine, unspecified, not intractable, without status migrainosus; F41.9 Anxiety disorder, unspecified; F32.A Depression, unspecified; F17.210 Nicotine dependence, cigarettes, uncomplicated
CPT/HCPCS: 00123; 36415; 80053; 83690; 87040; 96361; 96365; 96375; 99285; 74177; 76705; 81003; 81015; 82248; 83735; 85025; 85610; 85730; 99221; 99222; 99239; J1171; J1200; J2470; J2543; J3490

== ENCOUNTER → 2025-08-14 09:54 | Outpatient (CLI) | payer MEDICARE, SELFPAY ==
--- NOTE | 2025-08-14 | DI.CT_ITS ---
Exam(s) CT CHEST/ABD/PEL W EXAM: CT CHEST/ABD/PEL W CLINICAL HISTORY: RECENTLY DIAGNOSED PANCREAS CA, MASS UNCINATE. TECHNIQUE: Imaging Protocol: Axial computed tomography images with coronal and sagittal reformatted images were created and reviewed CONTRAST MATERIAL: Intravenous: Omnipaque 350 Contrast volume:100 ml Oral: Yes. Oral contrast was also administered for bowel opacification. COMPARISON: CT CT ABDOMEN PELVIS W from 08/07/2025 FINDINGS: CHEST: LUNGS: There are no metastatic appearing lung nodules and there are no pleural effusions. Mild increased markings in the inferior lingular the left lung are unchanged. There are no findings in the trachea and mainstem bronchi.. MEDIASTINUM: There is no hilar nor mediastinal adenopathy. Partially visualized thyroid unremarkable. Esophagus is not dilated. No subcarinal adenopathy. CARDIAC: Heart size is normal. There is no pericardial effusion.Caliber of the thoracic aorta is within normal limits. OSSEOUS: No significant osseous lesions.. ABDOMEN: There has been interval placement of a percutaneous transhepatic biliary drainage catheter. The entrance site of the catheter it is in the anterior aspect of the left hepatic lobe. The distal pigtail of the catheter is in the duodenum. The CBD is not dilated and there has been decompression of dilated intrahepatic ducts in both lobes. There is some subcutaneous streaking located 2-3 cm lateral to the percutaneous catheter which was not evident on the CT scan of 08/07/2025. There is no abnormal fluid collection at this level. There is also no abnormal fluid collection along the course of the recently placed biliary drainage catheter. LIVER: The previously described small hypodensities in the liver are again noted, largest of these being in the right hepatic lobe and measuring 1.2 cm. These are difficult to evaluate with respect to benign versus metastatic on this type study. As described above, there has been decompression of the previously dilated intrahepatic ducts in both lobes. GALLBLADDER/BILIARY: The gallbladder is significantly less distended than previous. There are no obvious gallstones nor gallbladder wall edema nor pericholecystic fluid. The cystic duct is not dilated. PANCREAS: The previously described ominous hypodense mass in the uncinate process of the is again noted and is again noted to involve the wall of the adjacent duodenal C-loop. The duodenum and stomach above this level are not dilated and the administered oral contrast has progressed distal to this level and indeed is reached the colon at the time of image acquisition. The pancreatic duct is not dilated. There is no peripancreatic fluid collection. The mass appears to in golf part of the superior mesenteric artery a few cm distal to its origin. Branches of the superior mesenteric vein also appear partially encased. There does not appear to be thrombosis/obstruction of these splenic vein confluence at this time. SPLEEN: Splenomegaly again noted. Craniocaudal measurement of the spleen is presently 18 cm. Splenic vein is patent. Portal vein is patent. ADRENALS: There are no significant adrenal masses. KIDNEYS: No calculi nor hydronephrosis. No solid renal masses. No cysts evident. ABDOMINAL AORTA: Abdominal aorta is not enlarged. LYMPH NODES: There is no paraaortic adenopathy. ABDOMINAL WALL: No evidence of significant anterior abdominal wall nor inguinal hernia. GI: There is no evidence of bowel obstruction.No ascites. No free air. No abscess. PELVIS: LYMPH NODES: There is no intrapelvic nor inguinal adenopathy. GI: No evidence of appendicitis.No evidence of sigmoid diverticulitis. URINARY BLADDER: No calculi nor masses evident REPRODUCTIVE: Uterus and adnexal regions appear unremarkable and there is no free fluid in the pelvis. OSSEOUS: No significant osseous lesions. No fractures. IMPRESSION: 1. Compared to the prior CT scan of 08/07/2025 there has been interval placement a of a percutaneous transhepatic biliary drainage catheter with its distal pigtail in good position in the duodenum and there has been decompression of the dilated intrahepatic ducts in both lobes of the liver as well as decompression of the gallbladder. . 2. The appearance of the malignant-appearing mass in the uncinate process of the pancreas exhibits minimal change and is again noted to invade the duodenal wall and exhibits some vascular encasement, as described above. 3. There is splenomegaly again noted (no splenic lesions evident). The diameter of the splenic vein is approximately 1 cm, unchanged, and there is no evidence of splenic nor portal vein thrombosis at this time nor obvious thrombosis of the superior mesenteric vein at this time. 4. No evidence of ascites. No evidence of bowel obstruction, free air, nor abscess. Kidneys appear unremarkable with no evidence of hydronephrosis. RADIATION DOSE DELIVERED: 2,508.14mGy.cm Total DLP DATA REPOSITORY: All CT scans at this facility are submitted to the National Radiology Data Registry (NRDR) Dose Index Registry (DIR) with the [employer] (A[employer]). RADIATION OPTIMIZATION: All CT scans at this facility use at least one of these dose optimization techniques: automated exposure control; mA and/or kV adjustment per patient size (includes targeted exams where dose is matched to clinical indication); or iterative reconstruction.
[2025-08-14] MEDS: Barium Sulfate 2% W/V-Creamy Vanilla Smoothie 450 ML BTL PO (13:00)
[2025-08-14] MEDS: Barium Sulfate 2% W/V-Berry Smoothie 450 ML BTL PO (13:01)
[2025-08-14 15:39] LABS: Abs Immature Grans 0.09 10^3/uL (0.0-0.06); HCT 37.6 % (36.0-46.0); HGB 11.8 g/dL (11.2-15.7); Immature Grans % 0.8 %; MCH 26.6 pg (27.0-33.0); MCHC 31.4 % (32.0-36.0); MCV 85 fL (80-95); MPV 10.0 fL (8.0-11.0); Platelet Count 430 10^3/uL (130-400); RBC 4.44 10^6/uL (3.93-5.22); RDW 16.0 % (11.7-14.6); RDW-SD 49.6 fL; WBC 11.43 10^3/uL (4.4-10.8)
--- NOTE | 2025-08-14 15:40 | W.ANESVAS ---
Midline Placement Date Performed: 08/14/25 Procedure Time: 15:30 Requesting Provider: Edyta Camarena Procedure Location: Radiology Sedation Given (Indicate Dose Given): No Sedation given Patient Mental Status: Awake Sterility: Hand Hygiene, Surgical Cap and Chlorhexidine Laterality: Left Insertion Site: Brachial Midline Device: PowerGlide Pro 18G Catheter Length: 10 cm Midline Procedure Procedure: Vessel accessed with catheter over needle and Catheter placed without resistance Dressing: Tegaderm Applied and Statlock Applied Blood Return: Present Flushes: Easily Ultrasound: Sterile probe cover and gel used Ultrasound Image Saved?: No Number of Attempts (See previous attempts in note section): 1 Procedure Tolerated: No Complications Procedure Outcome: Successful Procedure Comment:: Requested by radiology to place line for labs and imaging. Migue with first attempts. Performed By: Blaise Arndt
[2025-08-14 15:54] LABS: Lipase 150 U/L (<53)
[2025-08-14] MEDS: Normal Saline - Diluent 50 ML VIAL IJ (15:54)
[2025-08-14 15:55] LABS: Amylase 68 U/L (30-118); C-Reactive Protein 2.93 mg/dL (<=0.50)
[2025-08-14] MEDS: Omnipaque 350 MG/ML 100 ML BTL IJ (15:55)
[2025-08-14] MEDS: Normal Saline Flush 10 ML SYR IVP (15:55)
[2025-08-14 15:57] LABS: ALT 121 U/L (10-49); AST 109 U/L (<34); Albumin 4.4 g/dL (3.2-5.0); Alkaline Phosphatase 223 U/L (46-116); Anion Gap 9.9 mmol/L (3-11); BUN 22 mg/dL (9-23); Bilirubin, Total 6.7 mg/dL (0.2-1.2); CO2 25.8 mmol/L (20.0-31.0); Calcium 9.9 mg/dL (8.3-10.6); Chloride 99 mmol/L (98-107); Glucose 114 mg/dL (74-106); Potassium 3.9 mmol/L (3.5-5.1); Sodium 135 mmol/L (136-145); Total Protein 7.9 g/dL (5.7-8.2)
== END ==
LOC: DI 09:54
PROVIDERS: PCP Nurse Practitioner Adult Health; Visit Provider Surgery
DX: K83.09 Other cholangitis (principal); C25.0 Malignant neoplasm of head of pancreas
CPT/HCPCS: 36415; 74177; 76942; 80053; 83690; 71260; 82150; 85025; 86140; J3490